=== PATIENT | male | born 1985 | race Caucasian/White ===

== ENCOUNTER 2020-03-21 10:41 | Inpatient (IN) | payer MEDICAID ==
[~2020-03-21] VITALS: Ht 165.1 cm; Wt 52.3 kg
[2020-03-21] MEDS ORDERED: normal saline 1000ML IV soln IVB ONE ×2 (10:50→14:35)
[2020-03-21] MEDS ORDERED: LORazepam 2 mg/ml vial IV ONE (10:50)
[2020-03-21 11:41] LABS: BASOPHILS % (AUTO) 0.3 % (0-1); EOSINOPHILS % (AUTO) 0.1 % (0-6); HEMATOCRIT 44.6 % (42.0-52.0); HEMOGLOBIN 14.7 g/dl (14.0-17.9); LYMPHOCYTES # (AUTO) 1.3 X10'3 (1.1-4.8); LYMPHOCYTES % (AUTO) 9.7 % (21-51); MEAN CORPUSCULAR HEMOGLOBIN 31.4 PG (27.0-31.0); MEAN CORPUSCULAR HGB CONC 32.9 g/dL (33.0-36.5); MEAN CORPUSCULAR VOLUME 95.3 FL (78-98); MEAN PLATELET VOLUME 8.6 FL (7.4-10.4); MONOCYTES # (AUTO) 0.7 X10'3 (0-0.9); MONOCYTES % (AUTO) 5.4 % (2-12); NEUTROPHILS # (AUTO) 10.9 X10'3 (1.8-7.7); NEUTROPHILS % (AUTO) 84.5 % (42-75); PLATELET COUNT 309 X10'3 (140-440); RED BLOOD COUNT 4.68 X10'6 (4.70-6.10); RED CELL DISTRIBUTION WIDTH 14.4 % (11.5-14.5); WHITE BLOOD COUNT 12.9 X10'3 (4.5-11.0)
[2020-03-21 11:50] LABS: ALANINE AMINOTRANSFERASE 18 U/L (12-78); ALBUMIN 4.4 G/DL (3.4-5.0); ALKALINE PHOSPHATASE 102 IU/L (46-116); ANION GAP 8 (8-16); ASPARTATE AMINO TRANSFERASE 9 U/L (10-37); BILIRUBIN,TOTAL 0.3 MG/DL (0.1-1.0); BLOOD UREA NITROGEN 13 MG/DL (7-18); BUN/CREATININE RATIO 22.4 (5.4-32.0); CALCIUM 9.4 MG/DL (8.5-10.1); CHLORIDE 103 MMOL/L (99-107); CREATININE 0.58 MG/DL (0.60-1.10); GLUCOSE 82 MG/DL (70-104); SODIUM 140 MMOL/L (135-145); TOTAL PROTEIN 8.7 G/DL (6.4-8.2); eGFR > 90 ML/MIN
--- NOTE | 2020-03-21 12:21 | NUR ---
PT STARTING TO WAKE UP AND MOVE BUT MOVEMENTS SEEM TO BE PURPOSEFUL BY HIM MOVING HIS ARMS BACK AND FORTH AND MOVING HIS HEAD WHILE MOVING HIS TONGUE IN AND OUT. BUT PT'S LEFT ARM IS SHAKING TIME TO TIME BACK AND FORTH.
[2020-03-21 12:45] LABS: VALPROATE 116 UG/ML (50-100)
--- NOTE | 2020-03-21 13:07 | NUR ---
PT TURNED ON HIS RIGHT SIDE.
[2020-03-21] MEDS ORDERED: CefTRIAXone/D5W-Rocephin 1gm 50 ML IV ONE (15:10)
[2020-03-21] MEDS ORDERED: potassium Cl 20 mEq SR tablet PO PRN ×2 (15:35)
[2020-03-21] MEDS ORDERED: potassium CL 10mEq/100ml bag 100 ML IV PRN ×2 (15:35)
[2020-03-21] MEDS ORDERED: ondansetron/PF 4mg/2ml inj IV PRN (15:35)
[2020-03-21 16:09] LABS: CLARITY,URINE CLEAR (Clear); COLOR,URINE YELLOW (Yellow); GLUCOSE, URINE NEGATIVE (Neg); KETONES,URINE TRACE mg/dl (Neg); LEUKOCYTE ESTERASE ,URINE NEGATIVE (Neg); NITRITES, URINE NEGATIVE (Neg); OCCULT BLOOD,URINE NEGATIVE (Neg); PH,URINE 7.5 (4.8-8.0); PROTEIN,URINE NEGATIVE (Neg); UROBILINOGEN,URINE 0.2 E.U/dL (0.2-1.0)
[2020-03-21 16:10] LABS: UA COLLECTION TYPE OTHER
[2020-03-21] MEDS ORDERED: LACT1CAP75 PO (16:40)
[2020-03-21] MEDS ORDERED: DIVA-76 PO (16:40)
[2020-03-21] MEDS ORDERED: CARB15DR91 LEFT EAR (16:40)
[2020-03-21] MEDS ORDERED: KEP500T PO (16:40)
[2020-03-21] MEDS ORDERED: CARB15DR91 RIGHT EAR (16:40)
[2020-03-21] MEDS ORDERED: [UNRECOGNIZED DRUG - OTHER] (16:40)
[2020-03-21] MEDS ORDERED: LEVE10002 PO (16:40)
[2020-03-21] MEDS ORDERED: GABA600T13 PO (16:40)
[2020-03-21] MEDS ORDERED: DOCU100C40 PO (16:40)
[2020-03-21] MEDS ORDERED: BARRIER PR (16:40)
[2020-03-21] MEDS ORDERED: BACL-11 PO (16:40)
[2020-03-21] MEDS ORDERED: ESOM20CA PO (16:40)
[2020-03-21] MEDS ORDERED: MAGN400O6 PO (16:40)
[2020-03-21] MEDS ORDERED: LEVE250T4 PO (16:40)
[2020-03-21] MEDS ORDERED: IBUP-2417 PO (16:40)
[2020-03-21] MEDS ORDERED: BISA10SU11 RC (16:40)
[2020-03-21] MEDS ORDERED: [UNRECOGNIZED DRUG - OTHER] PR (16:40)
[2020-03-21] MEDS ORDERED: ROBDML PO (16:40)
[2020-03-21] MEDS ORDERED: PHYT5TAB30 PO (16:40)
[2020-03-21] MEDS ORDERED: ASCO500C17 PO (16:40)
[2020-03-21] MEDS ORDERED: ACET-812 PO (16:40)
[2020-03-21] MEDS ORDERED: NA P133E RC (16:40)
[2020-03-21] MEDS ORDERED: LACO200T2 PO (16:40)
[2020-03-21] MEDS ORDERED: AMYL1TAB PO (16:40)
[2020-03-21] MEDS ORDERED: guaiFENesin/DM 10ml UD oral syrup PO PRN (17:55)
[2020-03-21] MEDS ORDERED: magnesium hydroxide 30ml (MOM) UD suspension PO PRN (17:55)
[2020-03-21] MEDS ORDERED: [UNRECOGNIZED DRUG - OTHER] PR PRN (17:55)
[2020-03-21] MEDS ORDERED: ibuprofen 200mg tablet PO PRN (17:55)
[2020-03-21] MEDS ORDERED: PAPAYA ENZYME PO PRN (17:55)
[2020-03-21] MEDS ORDERED: padimate O/petrolatum,white stick (Chapstick) TP PRN (17:55)
[2020-03-21] MEDS ORDERED: bisacodyl 10mg suppository rectal RC PRN (17:55)
[2020-03-21] MEDS ORDERED: acetaminophen 325mg tablet PO PRN (17:55)
[2020-03-21] MEDS ORDERED: non-formulary drug (Na Phos,M-B/Na Phos,Di-Ba (Enema) 1 ENEMAS) RC PRN (17:55)
[2020-03-21] MEDS: divalproex sodium 500mg tablet.DR PO SCH ×2 (20:00→23:07)
[2020-03-21] MEDS ORDERED: non-formulary drug (Levetiracetam (Keppra) 1 TAB) PO SCH (20:00)
[2020-03-21] MEDS: K and/or MAG REPLACEMENT MC SCH (20:00)
[2020-03-21] MEDS ORDERED: carbamide peroxide 15ml bottle RIGHT EAR SCH (20:00)
[2020-03-21] MEDS ORDERED: levetiracetam 250mg tablet PO SCH (20:00)
[2020-03-21] MEDS: LACOSAMIDE 50 MG TABLET PO SCH ×2 (20:00→23:07)
[2020-03-21 21:00] VITALS: BP 120/60
--- NOTE | 2020-03-21 21:00 | NUR ---
Received patient from ER. Patients caregiver came up to the floor with him and said the patient is at his baseline besides the occasionally muscle jolting/spasms that he has been having since the seizure. Patient is non-verbal at baseline and quadriplegic. Patients caregiver had to leave but left his name and phone number. Caregiver is Sudheer, phone # [phone]. Patient is in bed 3015A and is in no apparent distress.
[2020-03-21] MEDS: carbamide peroxide 15ml bottle EACH EAR SCH (21:55)
[2020-03-21] MEDS: levetiracetam 250mg tablet PO SCH (21:56)
[2020-03-21] MEDS: baclofen 10mg tablet PO SCH (21:56)
[2020-03-21] MEDS: pantoprazole 40mg Tablet.DR PO SCH (21:56)
[2020-03-21] MEDS: ascorbic acid 500mg tablet PO SCH (21:56)
[2020-03-21] MEDS: docusate sod 100mg capsule PO SCH (21:56)
[2020-03-21] MEDS: heparin, porcine 5000 units/ml vial SQ SCH (21:57)
[2020-03-21 22:00] VITALS: BP 127/64
--- NOTE | 2020-03-21 22:27 | NUR ---
Meds given late due to patient not being on the floor at 1999 when meds were due. Not all meds available to give. Requested meds from pharmacy and have not received them yet. Will give when available.
--- NOTE | 2020-03-22 00:32 | NUR ---
Patient has a vagus nerve stimulator implant for when he has seizures. There is a magnet that is supposed to be passed over the vagus nerve when the patient is having a seizure to monitor the seizure. This magnet is in a bag inside of the paper chart binder if needed.
[2020-03-22 02:00] VITALS: BP 138/78
--- NOTE | 2020-03-22 02:56 | NUR ---
PAGER ID: [phone] MESSAGE: Victoria darrell [phone]. Patient in room 3015A is DD and will not drink any fluids or take meds. Do you want fluids ordered?
[2020-03-22 06:23] LABS: BASOPHILS % (AUTO) 0.2 % (0-1); EOSINOPHILS % (AUTO) 0.1 % (0-6); HEMATOCRIT 37.9 % (42.0-52.0); HEMOGLOBIN 12.5 g/dl (14.0-17.9); LYMPHOCYTES # (AUTO) 1.9 X10'3 (1.1-4.8); LYMPHOCYTES % (AUTO) 16.4 % (21-51); MEAN CORPUSCULAR HEMOGLOBIN 31.4 PG (27.0-31.0); MEAN CORPUSCULAR VOLUME 95.1 FL (78-98); MEAN PLATELET VOLUME 9.1 FL (7.4-10.4); MONOCYTES # (AUTO) 0.6 X10'3 (0-0.9); MONOCYTES % (AUTO) 4.9 % (2-12); NEUTROPHILS # (AUTO) 8.9 X10'3 (1.8-7.7); NEUTROPHILS % (AUTO) 78.4 % (42-75); PLATELET COUNT 266 X10'3 (140-440); RED BLOOD COUNT 3.99 X10'6 (4.70-6.10); RED CELL DISTRIBUTION WIDTH 14.5 % (11.5-14.5); WHITE BLOOD COUNT 11.4 X10'3 (4.5-11.0)
--- NOTE | 2020-03-22 06:30 | NUR ---
Problems reprioritized. Patient report given, questions answered & plan of care reviewed with Karina KING.
--- NOTE | 2020-03-22 06:35 | NUR ---
Received report from Victoria KING
[2020-03-22 06:48] LABS: ALBUMIN 3.7 G/DL (3.4-5.0); ANION GAP 12 (8-16); BLOOD UREA NITROGEN 12 MG/DL (7-18); BUN/CREATININE RATIO 28.6 (5.4-32.0); CALCIUM 8.7 MG/DL (8.5-10.1); CHLORIDE 104 MMOL/L (99-107); CREATININE 0.42 MG/DL (0.60-1.10); GLUCOSE 92 MG/DL (70-104); POTASSIUM 3.7 MMOL/L (3.5-5.1); SODIUM 141 MMOL/L (135-145); TOTAL CARBON DIOXIDE 25.2 MMOL/L (24-32); eGFR > 90 ML/MIN
[2020-03-22 07:03] VITALS: BP 132/89
[2020-03-22] MEDS: K and/or MAG REPLACEMENT MC SCH ×2 (08:00→20:00)
[2020-03-22] MEDS: carbamide peroxide 15ml bottle EACH EAR SCH ×2 (08:00→20:38)
[2020-03-22] MEDS ORDERED: azithromycin 250mg tablet PO SCH (08:00)
[2020-03-22] MEDS: lactobacillus rhamnosus 10,000 MMU CELLS/CAPSULE PO SCH (08:00)
[2020-03-22] MEDS: pantoprazole 40mg Tablet.DR PO SCH ×2 (08:00→20:00)
[2020-03-22] MEDS: divalproex sodium 500mg tablet.DR PO SCH ×2 (08:00→20:38)
[2020-03-22] MEDS: levetiracetam 250mg tablet PO SCH ×2 (09:24→20:36)
[2020-03-22] MEDS: baclofen 10mg tablet PO SCH ×2 (09:25→20:00)
[2020-03-22] MEDS: ascorbic acid 500mg tablet PO SCH ×2 (09:25→20:00)
[2020-03-22] MEDS: gabapentin 300mg capsule PO SCH ×3 (09:25→16:00)
[2020-03-22] MEDS: docusate sod 100mg capsule PO SCH ×2 (09:25→20:00)
[2020-03-22] MEDS: azithromycin/NS 500mg/250ml 250 ML IV SCH (09:26)
[2020-03-22] MEDS: heparin, porcine 5000 units/ml vial SQ SCH ×2 (09:26→20:00)
[2020-03-22] MEDS: LACOSAMIDE 50 MG TABLET PO SCH ×2 (10:34→21:24)
[2020-03-22 11:00] VITALS: BP 129/88
[2020-03-22] MEDS: CefTRIAXone/D5W-Rocephin 1gm 50 ML IV SCH (11:27)
[2020-03-22 15:00] VITALS: BP 133/83
--- NOTE | 2020-03-22 16:18 | NUR ---
Anatoly consult: Anatoly Rolon; skin intact. Pt placed on pureed/regular diet hx cerebral palsy admit from care facility and concerns for aspiration PNA pending [employer] INF[employer] CONSULTANT BSS at this time per EMR. Will monitor for [employer] CONSULTANT recs and additional protein needs pending PO hx. Addendum: 03/22/20 at [address] Amended: Links added.
[2020-03-22 18:00] VITALS: BP 132/82
[2020-03-22 22:00] VITALS: BP 99/66
[2020-03-23 06:00] VITALS: BP 123/76
[2020-03-23 06:14] LABS: BASOPHILS % (AUTO) 0.5 % (0-1); EOSINOPHILS % (AUTO) 0.5 % (0-6); HEMATOCRIT 37.9 % (42.0-52.0); HEMOGLOBIN 12.9 g/dl (14.0-17.9); LYMPHOCYTES # (AUTO) 2.4 X10'3 (1.1-4.8); LYMPHOCYTES % (AUTO) 27.4 % (21-51); MEAN CORPUSCULAR VOLUME 94.2 FL (78-98); MEAN PLATELET VOLUME 8.6 FL (7.4-10.4); MONOCYTES # (AUTO) 0.6 X10'3 (0-0.9); MONOCYTES % (AUTO) 7.1 % (2-12); NEUTROPHILS # (AUTO) 5.6 X10'3 (1.8-7.7); NEUTROPHILS % (AUTO) 64.5 % (42-75); PLATELET COUNT 283 X10'3 (140-440); RED BLOOD COUNT 4.02 X10'6 (4.70-6.10); RED CELL DISTRIBUTION WIDTH 14.6 % (11.5-14.5); WHITE BLOOD COUNT 8.6 X10'3 (4.5-11.0)
--- NOTE | 2020-03-23 06:30 | NUR ---
Patient in room PCU 3015. I have received report from Enedina KNIG and had the opportunity to ask questions and assume patient care.
[2020-03-23 06:31] LABS: ALBUMIN 3.7 G/DL (3.4-5.0); ANION GAP 12 (8-16); BLOOD UREA NITROGEN 15 MG/DL (7-18); BUN/CREATININE RATIO 35.7 (5.4-32.0); CHLORIDE 105 MMOL/L (99-107); CREATININE 0.42 MG/DL (0.60-1.10); GLUCOSE 99 MG/DL (70-104); POTASSIUM 3.8 MMOL/L (3.5-5.1); SODIUM 142 MMOL/L (135-145); TOTAL CARBON DIOXIDE 25.4 MMOL/L (24-32); eGFR > 90 ML/MIN
[2020-03-23 07:00] VITALS: BP 123/76
[2020-03-23] MEDS: carbamide peroxide 15ml bottle EACH EAR SCH ×2 (08:00→20:00)
[2020-03-23] MEDS: pantoprazole 40mg Tablet.DR PO SCH ×2 (08:00→21:11)
[2020-03-23] MEDS: heparin, porcine 5000 units/ml vial SQ SCH ×2 (08:00→20:00)
[2020-03-23] MEDS: LACOSAMIDE 50 MG TABLET PO SCH ×2 (08:00→20:00)
[2020-03-23] MEDS: docusate sod 100mg capsule PO SCH ×2 (08:00→20:00)
[2020-03-23] MEDS: lactobacillus rhamnosus 10,000 MMU CELLS/CAPSULE PO SCH (08:00)
[2020-03-23] MEDS: K and/or MAG REPLACEMENT MC SCH ×2 (08:00→20:00)
[2020-03-23] MEDS: baclofen 10mg tablet PO SCH ×2 (08:00→21:11)
[2020-03-23] MEDS: azithromycin/NS 500mg/250ml 250 ML IV SCH (09:15)
[2020-03-23] MEDS: CefTRIAXone/D5W-Rocephin 1gm 50 ML IV SCH (09:16)
[2020-03-23] MEDS: levetiracetam 250mg tablet PO SCH ×2 (09:16→21:09)
[2020-03-23] MEDS: gabapentin 300mg capsule PO SCH ×3 (09:17→16:00)
[2020-03-23] MEDS: ascorbic acid 500mg tablet PO SCH ×2 (09:17→20:00)
[2020-03-23] MEDS: divalproex sodium 500mg tablet.DR PO SCH ×2 (09:20→21:11)
[2020-03-23 11:00] VITALS: BP 115/69
[2020-03-23 15:00] VITALS: BP 156/95
[2020-03-23 18:30] VITALS: BP 127/81
--- NOTE | 2020-03-23 18:39 | NUR ---
Problems reprioritized. Patient report given, questions answered & plan of care reviewed with Enedina KING.
[2020-03-23 22:00] VITALS: BP 143/85
[2020-03-24 02:00] VITALS: BP 120/78
[2020-03-24 06:15] LABS: BASOPHILS # (AUTO) 0.1 X10'3 (0-0.2); BASOPHILS % (AUTO) 0.7 % (0-1); EOSINOPHILS % (AUTO) 0.5 % (0-6); HEMATOCRIT 37.9 % (42.0-52.0); HEMOGLOBIN 12.7 g/dl (14.0-17.9); LYMPHOCYTES # (AUTO) 1.9 X10'3 (1.1-4.8); LYMPHOCYTES % (AUTO) 21.9 % (21-51); MEAN CORPUSCULAR HEMOGLOBIN 31.7 PG (27.0-31.0); MEAN CORPUSCULAR HGB CONC 33.6 g/dL (33.0-36.5); MEAN CORPUSCULAR VOLUME 94.4 FL (78-98); MEAN PLATELET VOLUME 8.8 FL (7.4-10.4); MONOCYTES # (AUTO) 0.6 X10'3 (0-0.9); MONOCYTES % (AUTO) 6.9 % (2-12); PLATELET COUNT 302 X10'3 (140-440); RED BLOOD COUNT 4.01 X10'6 (4.70-6.10); RED CELL DISTRIBUTION WIDTH 14.5 % (11.5-14.5); WHITE BLOOD COUNT 8.6 X10'3 (4.5-11.0)
[2020-03-24 06:17] LABS: ALBUMIN 3.7 G/DL (3.4-5.0); ANION GAP 12 (8-16); BLOOD UREA NITROGEN 19 MG/DL (7-18); BUN/CREATININE RATIO 37.3 (5.4-32.0); CALCIUM 9.1 MG/DL (8.5-10.1); CHLORIDE 106 MMOL/L (99-107); CREATININE 0.51 MG/DL (0.60-1.10); GLUCOSE 90 MG/DL (70-104); POTASSIUM 3.9 MMOL/L (3.5-5.1); SODIUM 143 MMOL/L (135-145); TOTAL CARBON DIOXIDE 25.5 MMOL/L (24-32); eGFR > 90 ML/MIN
--- NOTE | 2020-03-24 06:25 | NUR ---
Patient in room PCU 3015. I have received report from Enedina KING and had the opportunity to ask questions and assume patient care.
[2020-03-24] MEDS: pantoprazole 40mg Tablet.DR PO SCH (08:00)
[2020-03-24] MEDS: lactobacillus rhamnosus 10,000 MMU CELLS/CAPSULE PO SCH (08:00)
[2020-03-24] MEDS: docusate sod 100mg capsule PO SCH (08:00)
[2020-03-24] MEDS: baclofen 10mg tablet PO SCH (08:00)
[2020-03-24] MEDS: heparin, porcine 5000 units/ml vial SQ SCH (08:00)
[2020-03-24] MEDS: carbamide peroxide 15ml bottle EACH EAR SCH (08:00)
[2020-03-24] MEDS ORDERED: azithromycin 250mg tablet PO SCH (08:00)
[2020-03-24] MEDS: LACOSAMIDE 50 MG TABLET PO SCH (08:00)
[2020-03-24] MEDS: ascorbic acid 500mg tablet PO SCH (08:00)
[2020-03-24] MEDS: K and/or MAG REPLACEMENT MC SCH (08:00)
[2020-03-24] MEDS ORDERED: augmentin PO (09:27)
[2020-03-24] MEDS: CefTRIAXone/D5W-Rocephin 1gm 50 ML IV SCH (10:05)
[2020-03-24] MEDS: levetiracetam 250mg tablet PO SCH (10:05)
[2020-03-24] MEDS: divalproex sodium 500mg tablet.DR PO SCH (10:05)
[2020-03-24] MEDS: gabapentin 300mg capsule PO SCH ×3 (10:14→16:00)
[2020-03-24 11:00] VITALS: BP_SYST 121; BP_SYST 151; BP_DIAS 69
[2020-03-24] MEDS ORDERED: AMOX1TAB15 PO (12:31)
--- NOTE | 2020-03-24 12:35 | NUR ---
Page sent to Dr. Wolff: PAGER ID: [phone] MESSAGE: [id number] Luis Carney: Amoxicillin is on the patient's allergy list, continue with discharge with Rx of Augmentin? Thanks, Amirah [phone]
--- NOTE | 2020-03-24 13:15 | NUR ---
Initial: Pt admit from care facility w/ seizure, bacteremia, and concern for aspiration PNA per MD. ELECTRIC TRUCK DRIVER recommended pureed/nectar thick diet w/ feeder; pt also has sitter. PO 25-50% avg meals not meeting needs; thickened magic cup shake added BIDLD for additional protein/kcals needs. LBM 6/8. Will continue to monitor. Rec: 1. continue regular/pureed/NTL diet per ELECTRIC TRUCK DRIVER/MD; encourage PO 2. thickened magic cup shake BIDLD 3. bowel care as needed 4. weekly scaled wts Addendum: 03/24/20 at [address] Amended: Links added.
[2020-03-24] MEDS ORDERED: LEVO500T2 PO (14:20)
[2020-03-24 15:00] VITALS: BP 147/97
--- NOTE | 2020-03-24 17:34 | NUR ---
Patient stable for discharge back to care facility he lives at per MD order. IV discontinued with catheter in tact, all patient belongs packed up and sent with patient. New Rx called in to [facility]. Facility and senior product development engineer notified of transfer, patient transported by senior living personnel.
--- NOTE | 2020-03-24 17:35 | NUR ---
Patient's discharge was delayed due to 5 factors: The patient's correction required a COVID 19 test. Order had to be obtained by infection control. Next, the initial order for discharge antibiotics did not include a dose. Waited for a page back for at least an hour and a half from Dr. Wolff. Next, RN identified that the patient is allergic to the drug ordered. Waited at least 3 hours for a response from Dr. Wolff. Next, correction required discharge paperwork to be faxed, fax would not send. After an hour of troubleshooting, facility was called and they said "oh our fax must be held up because we just got a whole bunch of papers faxed from another facility. GO ahead and just send the packet over with the patient upon transfer. Facility sent over transport.
--- NOTE | 2020-03-24 18:11 | NUR ---
Student documentation: I have reviewed and agree with all interventions, assessments performed and documented by SN Med. Addendum: 03/24/20 at 1811 by Amirah Blakely RN Student Medication Administration: For this medication-pass time frame, all medication were reviewed, dispensed, administered and documented per hospital policy by SN. Med
== END 2020-03-24 17:17 | disposition home or self-care (01) | DRG 137 ==
LOC: ER 10:43 → ED HOLD 15:34 → EDBEDREQ 20:17 → PCU 3S 21:38
PROVIDERS: ADMIT Internal Medicine; ATTEND Internal Medicine
DX: J69.0 Pneumonitis due to inhalation of food and vomit (principal); R78.81 Bacteremia; G80.9 Cerebral palsy, unspecified; G40.909 Epilepsy, unspecified, not intractable, without status epilepticus; Z88.1 Allergy status to other antibiotic agents; M62.838 Other muscle spasm; Z20.828 Contact with and (suspected) exposure to other viral communicable diseases
CPT/HCPCS: 36415; 71045; 80048; 80053; 80164; 81003; 83605; 84145; 85025; 87040; 87077; 87081; 87186; 87635; 92508; 92616; 93005; 96365; 99285; G0378; J0456; J0696; J1644; J7030

== ENCOUNTER 2020-06-23 22:33 | Inpatient (IN) | payer MEDICAID ==
[~2020-06-23] VITALS: Ht 170.2 cm; Wt 60.0 kg
[~2020-06-23 22:33] MED LIST: ACET-812 PO; AMYL1TAB PO; ASCO500C17 PO; BACL-11 PO; BARRIER PR; BISA10SU11 RC; CARB15DR91 LEFT EAR; CARB15DR91 RIGHT EAR; DIVA-76 PO; DOCU100C40 PO; ESOM20CA PO; GABA600T13 PO; IBUP-2417 PO; KEP500T PO; LACO200T2 PO; LACT1CAP75 PO; LEVE10002 PO; MAGN400O6 PO; NA P133E RC; PHYT5TAB30 PO; ROBDML PO; [UNRECOGNIZED DRUG - OTHER]; [UNRECOGNIZED DRUG - OTHER] PR
--- NOTE | 2020-06-23 22:40 | NUR ---
PT TO XRAY VIA AMAIRANI
--- NOTE | 2020-06-23 22:50 | NUR ---
PT BACK FROM [facility]
[2020-06-23] MEDS ORDERED: morphine 4 MG/ML inj SYRINge IV ONE (22:55)
[2020-06-23] MEDS ORDERED: ondansetron/PF 4mg/2ml inj IV ONE (22:55)
[2020-06-23 23:26] LABS: MEAN PLATELET VOLUME 8.6 FL (7.4-10.4); RED CELL DISTRIBUTION WIDTH 14.4 % (11.5-14.5)
[2020-06-23 23:27] LABS: BASOPHILS # (AUTO) 0.1 X10'3 (0-0.2); EOSINOPHILS # (AUTO) 0.1 X10'3 (0-0.9); EOSINOPHILS % (AUTO) 1.6 % (0-6); HEMATOCRIT 38.8 % (42.0-52.0); LYMPHOCYTES # (AUTO) 2.3 X10'3 (1.1-4.8); LYMPHOCYTES % (AUTO) 29.8 % (21-51); MEAN CORPUSCULAR HEMOGLOBIN 32.3 PG (27.0-31.0); MEAN CORPUSCULAR HGB CONC 33.5 g/dL (33.0-36.5); MEAN CORPUSCULAR VOLUME 96.5 FL (78-98); MONOCYTES # (AUTO) 0.6 X10'3 (0-0.9); MONOCYTES % (AUTO) 7.4 % (2-12); NEUTROPHILS # (AUTO) 4.7 X10'3 (1.8-7.7); NEUTROPHILS % (AUTO) 60.2 % (42-75); PLATELET COUNT 243 X10'3 (140-440); RED BLOOD COUNT 4.02 X10'6 (4.70-6.10); WHITE BLOOD COUNT 7.9 X10'3 (4.5-11.0)
[2020-06-23 23:38] LABS: PARTIAL THROMBOPLASTIN TIME 27 SECONDS (22-32)
[2020-06-23 23:44] LABS: ALANINE AMINOTRANSFERASE 17 U/L (12-78); ALBUMIN 3.8 G/DL (3.4-5.0); ALKALINE PHOSPHATASE 75 IU/L (46-116); ANION GAP 8 (8-16); ASPARTATE AMINO TRANSFERASE 11 U/L (10-37); BILIRUBIN,TOTAL 0.1 MG/DL (0.1-1.0); BLOOD UREA NITROGEN 13 MG/DL (7-18); BUN/CREATININE RATIO 19.7 (5.4-32.0); CALCIUM 8.8 MG/DL (8.5-10.1); CHLORIDE 102 MMOL/L (99-107); CREATININE 0.66 MG/DL (0.60-1.10); GLUCOSE 110 MG/DL (70-104); SODIUM 141 MMOL/L (135-145); TOTAL CARBON DIOXIDE 31.3 MMOL/L (24-32); TOTAL PROTEIN 7.5 G/DL (6.4-8.2); eGFR > 90 ML/MIN
[2020-06-24] MEDS ORDERED: morphine 4 MG/ML inj SYRINge IV ONE (00:05)
[2020-06-24] MEDS ORDERED: LIDOcaine 2% 10ml TOPICAL JELLY (Urojet) TP ONE (00:05)
--- NOTE | 2020-06-24 01:30 | NUR ---
BAR HOST OFF UNIT WILL RETURN SHORTLY
[2020-06-24] MEDS ORDERED: ondansetron/PF 4mg/2ml inj IV PRN (01:40)
[2020-06-24] MEDS ORDERED: potassium CL 10mEq/100ml bag 100 ML IV PRN ×2 (01:40)
[2020-06-24] MEDS ORDERED: morphine 2 MG/ML inj. syringe IV PRN (01:40)
[2020-06-24] MEDS: normal saline 1000ml 1,000 ML IV SCH ×2 (02:30→12:27)
[2020-06-24 03:00] VITALS: BP 135/85
--- NOTE | 2020-06-24 03:00 | NUR ---
Patient arrived to floor via gurney from ER. Caregiver Sudheer following. Patient transferred over to bed and settled in. Unable to obtain MRSA swab at this time d/t patient having anxiety.
--- NOTE | 2020-06-24 03:10 | NUR ---
pt refused nasal swab for MRSA. kept turning head side to side and swiping his fist at his nose.
[2020-06-24 06:00] VITALS: BP 112/77
--- NOTE | 2020-06-24 06:00 | NUR ---
Patient in room ORTHO 4009. I have received report from Nan and had the opportunity to ask questions and assume patient care.
--- NOTE | 2020-06-24 06:18 | NUR ---
Problems reprioritized. Patient report given, questions answered & plan of care reviewed with CHRISTINE Marvin.
[2020-06-24] MEDS ORDERED: levetiracetam 250mg tablet PO SCH (08:00)
[2020-06-24] MEDS ORDERED: non-formulary drug (Levetiracetam (Keppra) 1 TAB) PO SCH (08:00)
[2020-06-24] MEDS ORDERED: divalproex sodium 500mg tablet.DR PO SCH (08:00)
[2020-06-24] MEDS: gabapentin 300mg capsule PO SCH ×2 (08:00→16:00)
[2020-06-24] MEDS: baclofen 10mg tablet PO SCH ×2 (08:00→19:52)
[2020-06-24] MEDS: K and/or MAG REPLACEMENT MC SCH ×2 (08:00→20:00)
[2020-06-24] MEDS: pantoprazole 40mg Tablet.DR PO SCH ×2 (08:00→19:52)
[2020-06-24 10:00] VITALS: BP 135/82
[2020-06-24] MEDS ORDERED: acetaminophen 325mg tablet PO PRN (10:35)
--- NOTE | 2020-06-24 10:35 | NUR ---
LET MEAGAN HOYOS NP KNOW TEMP 102.0 ORDER GIVEN FOR TYLENOL.
--- NOTE | 2020-06-24 10:52 | NUR ---
Called [facility] to determine appropriate medical education specialist, no answer just a fax tone. Called [facility], was advised the nurse in charge at [facility] (Lili Moss) wouldn't be in until after 11:00. Reiterated reason for call, was only offered her VM.
--- NOTE | 2020-06-24 11:05 | NUR ---
Pulled 4 mg morphine (2 vials, 2mg/mL) from [facility] at 11:02. Scanned and given to pt at 11:05. Bea Lange was in room with me. Upon hitting "save", "medication edits have occurred" was displayed on the screen. The medical illustrator of morphine was no longer displayed and that med order was DC'd. A new order was showing for the same dosage of 4mg/mL. Spoke with tani in the pharmacy to confirm time med was pulled from [facility] and advise of medication screen not displaying the given dosage of morphine.
--- NOTE | 2020-06-24 11:25 | NUR ---
Called [facility] again, nurse had not arrived yet. Will reach out to [facility] again. Addendum: 06/24/20 at 1126 by Shavonne Garvin RN Called [facility], fax machine picked up as soon as call was answered. Asked to call again.
--- NOTE | 2020-06-24 11:30 | NUR ---
Finally able to get a hold of nurse, nectar thick, pureed diet, 90 degrees sitting upright, crushed meds in applesauce, direct number to Lili Moss is
[2020-06-24] MEDS: valproate sod 250mg/5ml UD oral syrup PO SCH ×2 (11:35→19:52)
--- NOTE | 2020-06-24 12:10 | NUR ---
Spoke with surgeon, [facility] cell number - Beau Noriega Addendum: 06/24/20 at 1212 by Shavonne Garvin RN Beau Noriega
[2020-06-24] MEDS: acetaminophen 650mg rectal suppository RC PRN ×2 (12:17→17:06)
[2020-06-24] MEDS: morphine 4 MG/ML inj SYRINge IV PRN ×3 (15:52→22:37)
[2020-06-24 16:01] VITALS: BP 146/89
--- NOTE | 2020-06-24 16:31 | NUR ---
Received call from surgeon, no surgery for pt today, able to give dinner then NPO after midnight for surgery tomorrow, no time given for surgery
[2020-06-24 18:00] VITALS: BP 126/72
--- NOTE | 2020-06-24 18:05 | NUR ---
Patient in room ORTHO 4009A. I have received report from CHRISTINE Marvin and had the opportunity to ask questions and assume patient care.
--- NOTE | 2020-06-24 18:12 | NUR ---
Problems reprioritized. Patient report given, questions answered & plan of care reviewed with
[2020-06-24] MEDS: heparin, porcine 5000 units/ml vial SQ SCH (19:52)
[2020-06-24] MEDS: levetiracetam 100mg/ml oral solution 5ml UD cup PO SCH (19:53)
[2020-06-24] MEDS ORDERED: valproate sod 250mg/5ml UD oral syrup PO SCH (20:00)
[2020-06-24 22:00] VITALS: BP 144/103
[2020-06-25] VITALS (17 sets, daily range): BP systolic 126–151; BP diastolic 78–100
[2020-06-25] MEDS: morphine 4 MG/ML inj SYRINge IV PRN ×5 (00:44→23:17)
[2020-06-25] MEDS: normal saline 1000ml 1,000 ML IV SCH ×3 (00:45→17:36)
[2020-06-25] MEDS: gabapentin 300mg capsule PO SCH ×4 (00:45→23:17)
--- NOTE | 2020-06-25 06:28 | NUR ---
Problems reprioritized. Patient report given, questions answered & plan of care reviewed with CHRISTINE Brennan.
[2020-06-25 07:45] LABS: BASOPHILS % (AUTO) 0.4 % (0-1); EOSINOPHILS % (AUTO) 0.1 % (0-6); HEMATOCRIT 32.1 % (42.0-52.0); HEMOGLOBIN 10.8 g/dl (14.0-17.9); LYMPHOCYTES # (AUTO) 2.3 X10'3 (1.1-4.8); LYMPHOCYTES % (AUTO) 22.2 % (21-51); MEAN CORPUSCULAR HEMOGLOBIN 32.1 PG (27.0-31.0); MEAN CORPUSCULAR HGB CONC 33.8 g/dL (33.0-36.5); MEAN PLATELET VOLUME 8.9 FL (7.4-10.4); MONOCYTES # (AUTO) 1.7 X10'3 (0-0.9); MONOCYTES % (AUTO) 15.8 % (2-12); NEUTROPHILS # (AUTO) 6.4 X10'3 (1.8-7.7); NEUTROPHILS % (AUTO) 61.5 % (42-75); PLATELET COUNT 210 X10'3 (140-440); RED BLOOD COUNT 3.38 X10'6 (4.70-6.10); RED CELL DISTRIBUTION WIDTH 14.3 % (11.5-14.5); WHITE BLOOD COUNT 10.4 X10'3 (4.5-11.0)
[2020-06-25] MEDS: K and/or MAG REPLACEMENT MC SCH ×2 (08:00→19:10)
[2020-06-25] MEDS: heparin, porcine 5000 units/ml vial SQ SCH ×2 (08:00→21:58)
[2020-06-25] MEDS: pantoprazole 40mg Tablet.DR PO SCH ×2 (08:03→21:57)
[2020-06-25] MEDS: baclofen 10mg tablet PO SCH ×2 (08:03→21:57)
[2020-06-25] MEDS: levetiracetam 100mg/ml oral solution 5ml UD cup PO SCH ×2 (08:17→21:58)
[2020-06-25] MEDS: valproate sod 250mg/5ml UD oral syrup PO SCH ×2 (08:18→21:57)
[2020-06-25 08:20] LABS: ALANINE AMINOTRANSFERASE 13 U/L (12-78); ALBUMIN 3.4 G/DL (3.4-5.0); ALBUMIN/GLOBULIN RATIO 0.9 (1.1-1.5); ALKALINE PHOSPHATASE 59 IU/L (46-116); ANION GAP 7 (8-16); ASPARTATE AMINO TRANSFERASE 10 U/L (10-37); BILIRUBIN,TOTAL 0.3 MG/DL (0.1-1.0); BLOOD UREA NITROGEN 15 MG/DL (7-18); BUN/CREATININE RATIO 40.5 (5.4-32.0); CALCIUM 8.2 MG/DL (8.5-10.1); CHLORIDE 104 MMOL/L (99-107); CREATININE 0.37 MG/DL (0.60-1.10); GLUCOSE 104 MG/DL (70-104); POTASSIUM 3.6 MMOL/L (3.5-5.1); SODIUM 140 MMOL/L (135-145); TOTAL CARBON DIOXIDE 28.7 MMOL/L (24-32); eGFR > 90 ML/MIN
[2020-06-25 08:30] LABS: PLATELET ESTIMATE NORMAL; TOTAL CELLS COUNTED 100
--- NOTE | 2020-06-25 10:45 | NUR ---
REC'D CALL FROM CHRISTINE STRANGE AT PTS HOME. CALLING TO CHECK ON PT, ADVISED PT IS DOING WELL OTHER THAN A LITTLE TACHYCARDIC. ASKED RN WHAT WAS NORMAL. SHE SAID PT RUNS A LITTLE TACHY 110-120 WHEN IN PAIN OR AGITATED
[2020-06-25] MEDS ORDERED: ondansetron/PF 4mg/2ml inj IV PRN (11:15)
[2020-06-25] MEDS ORDERED: ringers solution, lacted 1,000 ML IV SCH (11:15)
[2020-06-25] MEDS ORDERED: meperidine/PF 25mg/ml syringe IV PRN ×3 (11:15)
[2020-06-25] MEDS ORDERED: morphine 4 MG/ML inj SYRINge IV PRN (11:15)
[2020-06-25] MEDS ORDERED: proCHLORperazine 10 MG/2 ml inj IV PRN (11:15)
[2020-06-25] MEDS ORDERED: morphine 2 MG/ML inj. syringe IV PRN (11:15)
[2020-06-25] MEDS ORDERED: dexamethasone sod phosphate 10mg/ml inj ONE (11:45)
[2020-06-25] MEDS ORDERED: ondansetron/PF 4mg/2ml inj ONE (11:45)
[2020-06-25] MEDS ORDERED: desflurane 240ml liquid inh. IH ONE (11:45)
[2020-06-25] MEDS ORDERED: midazolam 2 mg/2 ml injection ONE (11:51)
[2020-06-25] MEDS ORDERED: fentaNYL /PF 50mcg/ml 5ml ampule ONE (11:52)
[2020-06-25] MEDS ORDERED: LIDOcaine 2% (20mg/ml) 5ml vial ONE (12:05)
[2020-06-25] MEDS ORDERED: rocuronium 10mg/ml inj IV ONE (12:05)
[2020-06-25] MEDS ORDERED: propofol inj 20 ML IV ONE (12:05)
[2020-06-25] MEDS ORDERED: ceFAZolin 1000mg inj ONE ×2 (12:49→12:50)
[2020-06-25] MEDS ORDERED: glycopyrrolate 0.2mg/ml inj ONE (13:34)
[2020-06-25] MEDS ORDERED: neostigmine methylsulfate 1 MG/ML 10ml vial ONE (13:34)
--- NOTE | 2020-06-25 13:50 | NUR ---
Received from OR via BED , accompanied by Anesthesiologist DR VOSS and report given by Anesthesiolgist. PATIENT WAKING UP, NO S/S OF PAIN, V/S WNL, NEUROVASCULAR CHECKS INTACT, 20G PIV RUE , DRESSING TO RIGHT HIP FEMUR CDI W/ COLD POWDER PACK
--- NOTE | 2020-06-25 14:30 | NUR ---
PATIENT AWAKE AND AT BASELINE MENTATION, NO S/S OF PAIN, V/S WNL, NEUROVASCULAR CHECKS INTACT, 20G PIV RUE , DRESSING TO RIGHT HIP FEMUR CDI W/ COLD POWDER PACK . PATIENT TAKEN TO 4009A WITH ALL BELONGINGS AND HOOKED UP TO MONITORS IN ROOM AND REPORT GIVEN TO RN WHO HAS TAKEN OVER PATIENT CARE.
--- NOTE | 2020-06-25 18:37 | NUR ---
Problems reprioritized. Patient report given, questions answered & plan of care reviewed with CHRISTINE Vail.
[2020-06-26 02:15] VITALS: BP 107/72
[2020-06-26] MEDS: morphine 4 MG/ML inj SYRINge IV PRN ×2 (02:26→05:32)
[2020-06-26] MEDS: normal saline 1000ml 1,000 ML IV SCH ×2 (02:26→13:17)
[2020-06-26 06:00] VITALS: BP 109/64
--- NOTE | 2020-06-26 06:11 | NUR ---
Patient in room ORTHO 4009. I have received report from CHRISTINE Vail and had the opportunity to ask questions and assume patient care.
--- NOTE | 2020-06-26 06:11 | NUR ---
Problems reprioritized. Patient report given, questions answered & plan of care reviewed with CHRISTINE Morales.
[2020-06-26 07:05] LABS: ALANINE AMINOTRANSFERASE 10 U/L (12-78); ALBUMIN 2.8 G/DL (3.4-5.0); ALBUMIN/GLOBULIN RATIO 0.8 (1.1-1.5); ALKALINE PHOSPHATASE 47 IU/L (46-116); ANION GAP 7 (8-16); ASPARTATE AMINO TRANSFERASE 12 U/L (10-37); BASOPHILS % (AUTO) 0.2 % (0-1); BILIRUBIN,TOTAL 0.4 MG/DL (0.1-1.0); BLOOD UREA NITROGEN 14 MG/DL (7-18); CHLORIDE 102 MMOL/L (99-107); CREATININE 0.35 MG/DL (0.60-1.10); EOSINOPHILS % (AUTO) 0 % (0-6); GLUCOSE 109 MG/DL (70-104); HEMATOCRIT 26.3 % (42.0-52.0); LYMPHOCYTES # (AUTO) 2.1 X10'3 (1.1-4.8); LYMPHOCYTES % (AUTO) 21.6 % (21-51); MEAN CORPUSCULAR HEMOGLOBIN 32.5 PG (27.0-31.0); MEAN CORPUSCULAR HGB CONC 34.2 g/dL (33.0-36.5); MEAN CORPUSCULAR VOLUME 95.1 FL (78-98); MEAN PLATELET VOLUME 8.9 FL (7.4-10.4); MONOCYTES # (AUTO) 1.6 X10'3 (0-0.9); MONOCYTES % (AUTO) 16.7 % (2-12); NEUTROPHILS % (AUTO) 61.5 % (42-75); PLATELET COUNT 169 X10'3 (140-440); POTASSIUM 3.5 MMOL/L (3.5-5.1); RED BLOOD COUNT 2.76 X10'6 (4.70-6.10); RED CELL DISTRIBUTION WIDTH 13.9 % (11.5-14.5); SODIUM 136 MMOL/L (135-145); TOTAL CARBON DIOXIDE 26.6 MMOL/L (24-32); TOTAL PROTEIN 6.2 G/DL (6.4-8.2); WHITE BLOOD COUNT 9.7 X10'3 (4.5-11.0); eGFR > 90 ML/MIN
[2020-06-26] MEDS: K and/or MAG REPLACEMENT MC SCH ×2 (07:16→20:00)
[2020-06-26] MEDS: baclofen 10mg tablet PO SCH ×2 (07:40→20:39)
[2020-06-26] MEDS: gabapentin 300mg capsule PO SCH ×2 (07:40→15:53)
[2020-06-26] MEDS: pantoprazole 40mg Tablet.DR PO SCH ×2 (07:40→20:38)
[2020-06-26] MEDS: heparin, porcine 5000 units/ml vial SQ SCH ×2 (07:40→20:38)
[2020-06-26] MEDS: valproate sod 250mg/5ml UD oral syrup PO SCH ×2 (07:44→20:38)
[2020-06-26] MEDS: levetiracetam 100mg/ml oral solution 5ml UD cup PO SCH ×2 (07:44→20:38)
[2020-06-26 10:00] VITALS: BP 109/76
[2020-06-26 18:00] VITALS: BP 141/93
--- NOTE | 2020-06-26 18:24 | NUR ---
Problems reprioritized. Patient report given, questions answered & plan of care reviewed with CHRISTINE Singh.
[2020-06-26 22:00] VITALS: BP 129/77
[2020-06-27] MEDS: normal saline 1000ml 1,000 ML IV SCH
[2020-06-27 05:42] LABS: ALANINE AMINOTRANSFERASE 6 U/L (12-78); ALBUMIN 2.9 G/DL (3.4-5.0); ALBUMIN/GLOBULIN RATIO 0.8 (1.1-1.5); ALKALINE PHOSPHATASE 44 IU/L (46-116); ANION GAP 7 (8-16); ASPARTATE AMINO TRANSFERASE 13 U/L (10-37); BILIRUBIN,TOTAL 0.5 MG/DL (0.1-1.0); BLOOD UREA NITROGEN 11 MG/DL (7-18); BUN/CREATININE RATIO 35.5 (5.4-32.0); CALCIUM 8.3 MG/DL (8.5-10.1); CHLORIDE 104 MMOL/L (99-107); CREATININE 0.31 MG/DL (0.60-1.10); GLUCOSE 101 MG/DL (70-104); POTASSIUM 3.2 MMOL/L (3.5-5.1); SODIUM 139 MMOL/L (135-145); TOTAL CARBON DIOXIDE 28.4 MMOL/L (24-32); TOTAL PROTEIN 6.4 G/DL (6.4-8.2); eGFR > 90 ML/MIN
[2020-06-27 05:54] LABS: BASOPHILS % (AUTO) 0.5 % (0-1); EOSINOPHILS # (AUTO) 0.1 X10'3 (0-0.9); EOSINOPHILS % (AUTO) 0.8 % (0-6); HEMATOCRIT 25.5 % (42.0-52.0); HEMOGLOBIN 8.8 g/dl (14.0-17.9); LYMPHOCYTES # (AUTO) 1.8 X10'3 (1.1-4.8); LYMPHOCYTES % (AUTO) 20.2 % (21-51); MEAN CORPUSCULAR HEMOGLOBIN 32.3 PG (27.0-31.0); MEAN CORPUSCULAR HGB CONC 34.3 g/dL (33.0-36.5); MEAN CORPUSCULAR VOLUME 94.1 FL (78-98); MEAN PLATELET VOLUME 9.3 FL (7.4-10.4); MONOCYTES # (AUTO) 1.1 X10'3 (0-0.9); MONOCYTES % (AUTO) 12.9 % (2-12); NEUTROPHILS # (AUTO) 5.7 X10'3 (1.8-7.7); NEUTROPHILS % (AUTO) 65.6 % (42-75); PLATELET COUNT 187 X10'3 (140-440); RED BLOOD COUNT 2.71 X10'6 (4.70-6.10); RED CELL DISTRIBUTION WIDTH 13.7 % (11.5-14.5); WHITE BLOOD COUNT 8.7 X10'3 (4.5-11.0)
[2020-06-27 06:00] VITALS: BP 114/77
--- NOTE | 2020-06-27 06:49 | NUR ---
Patient in room ORTHO 4009A. I have received report from CHRISTINE MOODY and had the opportunity to ask questions and assume patient care.
[2020-06-27] MEDS: gabapentin 300mg capsule PO SCH ×4 (07:46→23:21)
[2020-06-27] MEDS: pantoprazole 40mg Tablet.DR PO SCH ×2 (07:46→20:36)
[2020-06-27] MEDS: heparin, porcine 5000 units/ml vial SQ SCH ×2 (07:46→20:36)
[2020-06-27] MEDS: baclofen 10mg tablet PO SCH ×2 (07:46→20:36)
[2020-06-27] MEDS: levetiracetam 100mg/ml oral solution 5ml UD cup PO SCH ×2 (07:47→20:37)
[2020-06-27] MEDS: valproate sod 250mg/5ml UD oral syrup PO SCH ×2 (07:47→20:36)
[2020-06-27] MEDS: K and/or MAG REPLACEMENT MC SCH ×3 (08:00→20:00)
[2020-06-27 10:00] VITALS: BP 125/84
[2020-06-27] MEDS ORDERED: potassium CL 10mEq/100ml bag 100 ML IV PRN (12:20)
[2020-06-27] MEDS ORDERED: potassium Cl 20 mEq SR tablet PO PRN ×2 (12:20)
[2020-06-27] MEDS: morphine 4 MG/ML inj SYRINge IV PRN ×4 (13:56→23:21)
[2020-06-27] MEDS: potassium CL 10mEq/100ml bag 100 ML IV PRN ×3 (17:53→22:28)
[2020-06-27 18:00] VITALS: BP 142/68
--- NOTE | 2020-06-27 18:26 | NUR ---
Problems reprioritized. Patient report given, questions answered & plan of care reviewed with CHRISTINE UGARTE.
--- NOTE | 2020-06-27 18:30 | NUR ---
Patient in room ORTHO 4009. I have received report from Marcia Morataya RN and had the opportunity to ask questions and assume patient care.
[2020-06-27 22:00] VITALS: BP 137/83
[2020-06-27 23:28] LABS: COLOR,URINE YELLOW (Yellow); GLUCOSE, URINE NEGATIVE (Neg); KETONES,URINE 15 mg/dl (Neg); LEUKOCYTE ESTERASE ,URINE NEGATIVE (Neg); NITRITES, URINE NEGATIVE (Neg); OCCULT BLOOD,URINE LARGE (Neg); PROTEIN,URINE >=300 mg/dl (Neg)
[2020-06-27 23:37] LABS: UA COLLECTION TYPE NON-SPECIFIED
[2020-06-27 23:38] LABS: CLARITY,URINE SLIGHTLY CLOUDY (Clear)
[2020-06-27 23:40] LABS: MUCUS STRANDS MANY /LPF (Neg); SQUAMOUS EPITHELIAL CELL,UR FEW /LPF (FEW)
[2020-06-27 23:41] LABS: RBC,URINE 20-50 /HPF (0-2); WBC,URINE 0-4 /HPF (0-4)
[2020-06-27 23:42] LABS: BACTERIA,URINE NONE SEEN /HPF (Neg)
[2020-06-28] MEDS: potassium CL 10mEq/100ml bag 100 ML IV PRN (00:39)
[2020-06-28] MEDS ORDERED: CefTRIAXone 2gm/D5W 50ml 50 ML IV ONE (01:05)
[2020-06-28] MEDS: morphine 4 MG/ML inj SYRINge IV PRN ×4 (02:53→19:55)
[2020-06-28 06:00] VITALS: BP 108/73
--- NOTE | 2020-06-28 06:24 | NUR ---
Problems reprioritized. Patient report given, questions answered & plan of care reviewed with CHRISTINE Mckeon.
[2020-06-28 06:35] LABS: BASOPHILS # (AUTO) 0.1 X10'3 (0-0.2); BASOPHILS % (AUTO) 0.9 % (0-1); EOSINOPHILS # (AUTO) 0.1 X10'3 (0-0.9); EOSINOPHILS % (AUTO) 1.7 % (0-6); HEMATOCRIT 24.6 % (42.0-52.0); HEMOGLOBIN 8.4 g/dl (14.0-17.9); LYMPHOCYTES # (AUTO) 1.8 X10'3 (1.1-4.8); LYMPHOCYTES % (AUTO) 21.5 % (21-51); MEAN CORPUSCULAR HEMOGLOBIN 32.4 PG (27.0-31.0); MEAN CORPUSCULAR VOLUME 95.1 FL (78-98); MEAN PLATELET VOLUME 8.4 FL (7.4-10.4); MONOCYTES # (AUTO) 1.2 X10'3 (0-0.9); MONOCYTES % (AUTO) 14.2 % (2-12); NEUTROPHILS # (AUTO) 5.1 X10'3 (1.8-7.7); NEUTROPHILS % (AUTO) 61.7 % (42-75); PLATELET COUNT 235 X10'3 (140-440); RED BLOOD COUNT 2.58 X10'6 (4.70-6.10); RED CELL DISTRIBUTION WIDTH 14.1 % (11.5-14.5); WHITE BLOOD COUNT 8.2 X10'3 (4.5-11.0)
[2020-06-28 06:49] LABS: ALANINE AMINOTRANSFERASE 12 U/L (12-78); ALBUMIN 2.7 G/DL (3.4-5.0); ALBUMIN/GLOBULIN RATIO 0.8 (1.1-1.5); ALKALINE PHOSPHATASE 44 IU/L (46-116); ANION GAP 8 (8-16); ASPARTATE AMINO TRANSFERASE 14 U/L (10-37); BILIRUBIN,TOTAL 0.5 MG/DL (0.1-1.0); BLOOD UREA NITROGEN 18 MG/DL (7-18); BUN/CREATININE RATIO 51.4 (5.4-32.0); CALCIUM 8.8 MG/DL (8.5-10.1); CHLORIDE 103 MMOL/L (99-107); CREATININE 0.35 MG/DL (0.60-1.10); GLUCOSE 99 MG/DL (70-104); POTASSIUM 3.6 MMOL/L (3.5-5.1); SODIUM 139 MMOL/L (135-145); TOTAL CARBON DIOXIDE 28.1 MMOL/L (24-32); TOTAL PROTEIN 6.3 G/DL (6.4-8.2); eGFR > 90 ML/MIN
[2020-06-28] MEDS: K and/or MAG REPLACEMENT MC SCH ×3 (08:00→20:00)
[2020-06-28] MEDS: gabapentin 300mg capsule PO SCH ×2 (08:06→16:32)
[2020-06-28] MEDS: heparin, porcine 5000 units/ml vial SQ SCH ×2 (08:07→19:54)
[2020-06-28] MEDS: valproate sod 250mg/5ml UD oral syrup PO SCH ×2 (08:07→19:53)
[2020-06-28] MEDS: baclofen 10mg tablet PO SCH ×2 (08:07→19:53)
[2020-06-28] MEDS: pantoprazole 40mg Tablet.DR PO SCH ×2 (08:07→19:53)
--- NOTE | 2020-06-28 08:07 | NUR ---
Was at bedside observing when student nurse administrated Heprain.
[2020-06-28] MEDS: levetiracetam 100mg/ml oral solution 5ml UD cup PO SCH ×2 (08:24→19:53)
--- NOTE | 2020-06-28 11:23 | NUR ---
PAGER ID: [phone] MESSAGE: [id number] Cj Carney can we change his morphine to the liquid norco suspension as needed for pain. #[id number] Linda (107 character message out of a maximum of 240) CLOSE [X]
--- NOTE | 2020-06-28 11:57 | NUR ---
Student documentation: I have reviewed all interventions, assessments performed and documented by Gilda NUNES
[2020-06-28] MEDS: albuterol 2.5 MG/3 ML nebule NEB SCH ×3 (12:00→23:29)
--- NOTE | 2020-06-28 15:46 | NUR ---
Student documentation: I have reviewed assessments performed and documented by Candy TILLMAN [facility] .
[2020-06-28 18:00] VITALS: BP 150/83
[2020-06-28 21:00] VITALS: BP 146/67
[2020-06-28] MEDS: acetaminophen 650mg rectal suppository RC PRN (21:19)
[2020-06-28] MEDS ORDERED: HYDROcodone/acetaminophen 5mg/325mg tablet PO PRN (23:10)
[2020-06-29] MEDS: albuterol 2.5 MG/3 ML nebule NEB SCH ×3 (03:41→11:38)
[2020-06-29 06:38] LABS: BASOPHILS # (AUTO) 0.1 X10'3 (0-0.2); EOSINOPHILS # (AUTO) 0.1 X10'3 (0-0.9); EOSINOPHILS % (AUTO) 1.8 % (0-6); HEMATOCRIT 24.1 % (42.0-52.0); HEMOGLOBIN 8.2 g/dl (14.0-17.9); LYMPHOCYTES # (AUTO) 1.6 X10'3 (1.1-4.8); LYMPHOCYTES % (AUTO) 20.9 % (21-51); MEAN CORPUSCULAR HEMOGLOBIN 32.4 PG (27.0-31.0); MEAN CORPUSCULAR HGB CONC 34.1 g/dL (33.0-36.5); MEAN CORPUSCULAR VOLUME 94.8 FL (78-98); MEAN PLATELET VOLUME 8.4 FL (7.4-10.4); MONOCYTES # (AUTO) 0.9 X10'3 (0-0.9); MONOCYTES % (AUTO) 12.7 % (2-12); NEUTROPHILS # (AUTO) 4.8 X10'3 (1.8-7.7); NEUTROPHILS % (AUTO) 63.6 % (42-75); PLATELET COUNT 273 X10'3 (140-440); RED BLOOD COUNT 2.54 X10'6 (4.70-6.10); RED CELL DISTRIBUTION WIDTH 14.2 % (11.5-14.5); WHITE BLOOD COUNT 7.5 X10'3 (4.5-11.0)
[2020-06-29 06:56] LABS: ALANINE AMINOTRANSFERASE 15 U/L (12-78); ALBUMIN 2.6 G/DL (3.4-5.0); ALBUMIN/GLOBULIN RATIO 0.7 (1.1-1.5); ALKALINE PHOSPHATASE 45 IU/L (46-116); ANION GAP 7 (8-16); ASPARTATE AMINO TRANSFERASE 12 U/L (10-37); BILIRUBIN,TOTAL 0.5 MG/DL (0.1-1.0); BLOOD UREA NITROGEN 17 MG/DL (7-18); BUN/CREATININE RATIO 51.5 (5.4-32.0); CALCIUM 8.5 MG/DL (8.5-10.1); CHLORIDE 104 MMOL/L (99-107); CREATININE 0.33 MG/DL (0.60-1.10); GLUCOSE 103 MG/DL (70-104); POTASSIUM 3.3 MMOL/L (3.5-5.1); SODIUM 140 MMOL/L (135-145); TOTAL CARBON DIOXIDE 29.5 MMOL/L (24-32); TOTAL PROTEIN 6.3 G/DL (6.4-8.2); eGFR > 90 ML/MIN
[2020-06-29] MEDS: heparin, porcine 5000 units/ml vial SQ SCH (08:00)
[2020-06-29] MEDS ORDERED: neomy sulf/bacitrac zn/polymixin b oint 14.2 gm tube TP SCH (08:00)
[2020-06-29] MEDS: K and/or MAG REPLACEMENT MC SCH (08:00)
[2020-06-29 08:47] VITALS: BP 115/61
[2020-06-29] MEDS: valproate sod 250mg/5ml UD oral syrup PO SCH (09:22)
[2020-06-29] MEDS: levetiracetam 100mg/ml oral solution 5ml UD cup PO SCH (09:24)
[2020-06-29] MEDS: gabapentin 300mg capsule PO SCH ×2 (09:27)
[2020-06-29] MEDS: baclofen 10mg tablet PO SCH (09:28)
[2020-06-29] MEDS: pantoprazole 40mg Tablet.DR PO SCH (09:29)
[2020-06-29 11:13] VITALS: BP 120/69
[2020-06-29] MEDS ORDERED: ACET5SOL2 PO (12:14)
--- NOTE | 2020-06-29 15:59 | NUR ---
Pt IV was removed cannula intact lindsay removed. Employee from [facility] brought patient chair we hoyered patient into chair. employee was given script for tylenol with codeine and the discharge papers. Lili manager marketing at [facility] notified
== END 2020-06-29 15:05 | disposition home or self-care (01) | DRG 308 ==
LOC: ER 22:33 → UNDOADMIN 06-24 01:39 → ED HOLD 06-24 01:39 → ORTHO 4S 06-24 03:00 → ED HOLD 06-24 03:00
PROVIDERS: ADMIT Internal Medicine; ATTEND Family Medicine
PROC: 0QS806Z Reposition Right Femoral Shaft with Intramedullary Internal Fixation Device, Open Approach (ICD-10-PCS; principal; 2020-06-25 11:45)
DX: S72.351A Displaced comminuted fracture of shaft of right femur, initial encounter for closed fracture (principal); E87.6 Hypokalemia; W06.XXXA Fall from bed, initial encounter; G40.909 Epilepsy, unspecified, not intractable, without status epilepticus; G80.9 Cerebral palsy, unspecified; J98.11 Atelectasis; Z79.82 Long term (current) use of aspirin; Y93.89 Activity, other specified; Y92.89 Other specified places as the place of occurrence of the external cause; Y99.8 Other external cause status; Z88.2 Allergy status to sulfonamides; Z88.8 Allergy status to other drugs, medicaments and biological substances; Z95.0 Presence of cardiac pacemaker; Z79.899 Other long term (current) drug therapy
CPT/HCPCS: 36415; 71045; 73552; 76000; 80053; 81001; 82948; 85007; 85025; 85730; 86885; 86900; 86901; 94640; 94760; 96374; 96375; 96376; 97161; 97530; 99285; A4618; A6455; C1713; G0378; J0690; J0696; J1100; J1644; J2001; J2250; J2270; J2405; J2704; J2710; J3010; J3480; J3490; J7030; J7120

== ENCOUNTER 2020-07-27 11:04 | Emergency (ER) | payer MEDICAID ==
[~2020-07-27] VITALS: Ht 170.2 cm; Wt 72.7 kg
[~2020-07-27 11:04] MED LIST changes: +ACET5SOL2 PO; -LACO200T2 PO
[2020-07-27] MEDS ORDERED: CefTRIAXone 2gm/D5W 50ml 50 ML IV ONE (11:20)
[2020-07-27] MEDS ORDERED: normal saline 1000ML IV soln IV ONE (11:20)
[2020-07-27] MEDS ORDERED: acetaminophen 650mg rectal suppository RC ONE (11:20)
[2020-07-27 13:04] LABS: CLARITY,URINE SLIGHTLY CLOUDY (Clear); COLOR,URINE YELLOW (Yellow); GLUCOSE, URINE NEGATIVE (Neg); KETONES,URINE 15 mg/dl (Neg); LEUKOCYTE ESTERASE ,URINE NEGATIVE (Neg); NITRITES, URINE NEGATIVE (Neg); OCCULT BLOOD,URINE TRACE-INTACT (Neg); PROTEIN,URINE 30 mg/dl (Neg); UROBILINOGEN,URINE 0.2 E.U/dL (0.2-1.0)
[2020-07-27 13:13] LABS: UA COLLECTION TYPE STRAIGHT CATH
[2020-07-27 13:15] LABS: RBC,URINE 0-2 /HPF (0-2); WBC,URINE 20-30 /HPF (0-4)
[2020-07-27 13:16] LABS: BACTERIA,URINE NONE SEEN /HPF (Neg); MUCUS STRANDS MODERATE /LPF (Neg); SQUAMOUS EPITHELIAL CELL,UR FEW /LPF (FEW); WBC CLUMPS,URINE MODERATE /HPF (NEGATIVE)
[2020-07-27 14:29] LABS: BASOPHILS # (AUTO) 0.1 X10'3 (0-0.2); BASOPHILS % (AUTO) 0.5 % (0-1); EOSINOPHILS % (AUTO) 0.1 % (0-6); LYMPHOCYTES # (AUTO) 1.6 X10'3 (1.1-4.8); LYMPHOCYTES % (AUTO) 11.6 % (21-51); MEAN CORPUSCULAR HEMOGLOBIN 30.9 PG (27.0-31.0); MEAN CORPUSCULAR HGB CONC 32.4 g/dL (33.0-36.5); MEAN CORPUSCULAR VOLUME 95.2 FL (78-98); MEAN PLATELET VOLUME 9.2 FL (7.4-10.4); MONOCYTES # (AUTO) 1.5 X10'3 (0-0.9); MONOCYTES % (AUTO) 10.6 % (2-12); NEUTROPHILS # (AUTO) 10.8 X10'3 (1.8-7.7); NEUTROPHILS % (AUTO) 77.2 % (42-75); PLATELET COUNT 250 X10'3 (140-440); RED BLOOD COUNT 4.21 X10'6 (4.70-6.10); RED CELL DISTRIBUTION WIDTH 15.2 % (11.5-14.5)
[2020-07-27 14:34] LABS: ALANINE AMINOTRANSFERASE 16 U/L (12-78); ALBUMIN 3.9 G/DL (3.4-5.0); ALBUMIN/GLOBULIN RATIO 0.9 (1.1-1.5); ALKALINE PHOSPHATASE 194 IU/L (46-116); ANION GAP 8 (8-16); ASPARTATE AMINO TRANSFERASE 15 U/L (10-37); BILIRUBIN,TOTAL 0.2 MG/DL (0.1-1.0); BLOOD UREA NITROGEN 18 MG/DL (7-18); CHLORIDE 106 MMOL/L (99-107); CREATININE 0.45 MG/DL (0.60-1.10); GLUCOSE 89 MG/DL (70-104); POTASSIUM 3.4 MMOL/L (3.5-5.1); SODIUM 143 MMOL/L (135-145); TOTAL CARBON DIOXIDE 28.8 MMOL/L (24-32); TOTAL PROTEIN 8.2 G/DL (6.4-8.2); eGFR > 90 ML/MIN
[2020-07-27] MEDS ORDERED: CEFD250S3 PO ×2 (14:43→14:46)
[2020-07-27 15:35] VITALS: BP 102/65
== END 2020-07-27 16:19 | disposition home or self-care (01) ==
LOC: ER 11:05
DX: N39.0 Urinary tract infection, site not specified (principal); Z20.828 Contact with and (suspected) exposure to other viral communicable diseases; R61 Generalized hyperhidrosis; R00.0 Tachycardia, unspecified; Z86.69 Personal history of other diseases of the nervous system and sense organs; Z95.0 Presence of cardiac pacemaker; Z88.2 Allergy status to sulfonamides; Z88.1 Allergy status to other antibiotic agents; Z88.7 Allergy status to serum and vaccine; Z91.048 Other nonmedicinal substance allergy status; Z79.899 Other long term (current) drug therapy
CPT/HCPCS: 36415; 71045; 80053; 81001; 83605; 84145; 85025; 87040; 87088; 87502; 87503; 87635; 96365; 99285; C9803; J0696; J7030

== ENCOUNTER 2021-08-23 10:08 | Emergency (ER) | payer MEDICAID ==
[~2021-08-23] VITALS: Ht 170.2 cm; Wt 63.6 kg
[~2021-08-23 10:08] MED LIST changes: +CEFD250S3 PO
[2021-08-23 11:12] VITALS: BP 128/101
[2021-08-23] MEDS ORDERED: ALBU8HFA PO (12:54)
[2021-08-23] MEDS ORDERED: ROBCFL PO (12:54)
[2021-08-23] MEDS ORDERED: EUCA50OI5 TP (13:02)
== END 2021-08-23 14:01 | disposition home or self-care (01) ==
LOC: ER 10:09
DX: J06.9 Acute upper respiratory infection, unspecified (principal); Z20.822 Contact with and (suspected) exposure to COVID-19; Z88.1 Allergy status to other antibiotic agents; Z88.2 Allergy status to sulfonamides; Z88.7 Allergy status to serum and vaccine; Z88.8 Allergy status to other drugs, medicaments and biological substances; Z91.048 Other nonmedicinal substance allergy status; Z79.2 Long term (current) use of antibiotics; Z79.899 Other long term (current) drug therapy; Z95.0 Presence of cardiac pacemaker
CPT/HCPCS: 87635; 99283; C9803

== ENCOUNTER 2021-11-05 14:23 | Inpatient (IN) | payer MEDICAID ==
[~2021-11-05] VITALS: Ht 167.6 cm; Wt 70.1 kg
[~2021-11-05 14:23] MED LIST changes: +EUCA50OI5 TP
[2021-11-05] MEDS ORDERED: normal saline 1000ml 1,000 ML IVB ONE (15:25)
[2021-11-05] MEDS ORDERED: acetaminophen 650mg rectal suppository RC ONE ×2 (15:25)
[2021-11-05] MEDS ORDERED: CefTRIAXone/D5W-Rocephin 1gm 50 ML IV ONE (15:30)
[2021-11-05 15:44] LABS: BASOPHILS % (AUTO) 0.4 % (0-1); EOSINOPHILS % (AUTO) 0 % (0-6); HEMATOCRIT 40.3 % (42.0-52.0); HEMOGLOBIN 13.6 g/dl (14.0-17.9); LYMPHOCYTES # (AUTO) 1.2 X10'3 (1.1-4.8); LYMPHOCYTES % (AUTO) 12.1 % (21-51); MEAN CORPUSCULAR HEMOGLOBIN 31.2 PG (27.0-31.0); MEAN CORPUSCULAR HGB CONC 33.7 g/dL (33.0-36.5); MEAN CORPUSCULAR VOLUME 92.6 FL (78-98); MEAN PLATELET VOLUME 8.4 FL (7.4-10.4); MONOCYTES # (AUTO) 1.4 X10'3 (0-0.9); MONOCYTES % (AUTO) 14.1 % (2-12); NEUTROPHILS % (AUTO) 73.4 % (42-75); PLATELET COUNT 281 X10'3 (140-440); RED BLOOD COUNT 4.35 X10'6 (4.70-6.10); RED CELL DISTRIBUTION WIDTH 15.6 % (11.5-14.5); WHITE BLOOD COUNT 9.6 X10'3 (4.5-11.0)
[2021-11-05 16:00] LABS: ALANINE AMINOTRANSFERASE 17 U/L (12-78); ALBUMIN 3.7 G/DL (3.4-5.0); ALBUMIN/GLOBULIN RATIO 0.8 (1.1-1.5); ALKALINE PHOSPHATASE 85 IU/L (46-116); ANION GAP 8 (8-16); ASPARTATE AMINO TRANSFERASE 13 U/L (10-37); BILIRUBIN,TOTAL 0.2 MG/DL (0.1-1.0); BLOOD UREA NITROGEN 16 MG/DL (7-18); CALCIUM 8.8 MG/DL (8.5-10.1); CHLORIDE 100 MMOL/L (99-107); CREATININE 0.64 MG/DL (0.60-1.10); GLUCOSE 84 MG/DL (70-104); POTASSIUM 3.8 MMOL/L (3.5-5.1); SODIUM 138 MMOL/L (135-145); TOTAL CARBON DIOXIDE 29.6 MMOL/L (24-32); TOTAL PROTEIN 8.2 G/DL (6.4-8.2); eGFR > 90 ML/MIN
[2021-11-05] MEDS ORDERED: azithromycin/NS 500mg/250ml 250 ML IV ONE (16:30)
[2021-11-05] MEDS ORDERED: normal saline 1000ML IV soln IV ONE (16:30)
[2021-11-05] MEDS ORDERED: ketorolac tromethamine 15mg/ml inj. IV ONE (16:35)
[2021-11-05 16:36] LABS: CLARITY,URINE CLEAR (Clear); COLOR,URINE YELLOW (Yellow); GLUCOSE, URINE NEGATIVE (Neg); KETONES,URINE TRACE mg/dl (Neg); LEUKOCYTE ESTERASE ,URINE NEGATIVE (Neg); NITRITES, URINE NEGATIVE (Neg); OCCULT BLOOD,URINE NEGATIVE (Neg); PROTEIN,URINE TRACE mg/dl (Neg); UROBILINOGEN,URINE 0.2 E.U/dL (0.2-1.0)
[2021-11-05 16:37] LABS: UA COLLECTION TYPE FOLEY CATH
[2021-11-05 16:59] LABS: BACTERIA,URINE NONE SEEN /HPF (Neg); MUCUS STRANDS FEW /LPF (Neg); RBC,URINE 0-2 /HPF (0-2); SQUAMOUS EPITHELIAL CELL,UR NONE SEEN /LPF (FEW); WBC,URINE 0-4 /HPF (0-4)
[2021-11-05] MEDS ORDERED: ondansetron/PF 4mg/2ml inj IV PRN (18:10)
[2021-11-05] MEDS ORDERED: magnesium 2GM in 50ml NS 50 ML IV PRN (18:10)
[2021-11-05] MEDS ORDERED: potassium Cl 20 mEq SR tablet PO PRN ×2 (18:10)
[2021-11-05] MEDS ORDERED: HYDROcodone/acetaminophen 5mg/325mg tablet PO PRN (18:10)
[2021-11-05] MEDS ORDERED: magnesium hydroxide 30ml (MOM) UD suspension PO PRN (18:10)
[2021-11-05] MEDS ORDERED: acetaminophen 325mg tablet PO PRN ×2 (18:10)
[2021-11-05] MEDS ORDERED: magnesium 4gm in 100ml NS 100 ML IV PRN (18:10)
[2021-11-05] MEDS ORDERED: mag hydrox/Alum hydrox/simeth 30ml oral suspension PO PRN (18:10)
[2021-11-05] MEDS ORDERED: magnesium Cl slow-release 64mg tablet PO PRN (18:10)
[2021-11-05] MEDS ORDERED: levetiracetam inj 1,000 MG in normal saline 100ml IV soln 90 ML IV STA (18:21)
[2021-11-05] MEDS: K and/or MAG REPLACEMENT MC SCH (18:39)
[2021-11-05] MEDS: normal saline 1000ml 1,000 ML IV SCH (18:59)
[2021-11-05] MEDS: levoFLOXACIN-Levaquin 500mg/D5 100 ML IV SCH (19:54)
[2021-11-05] MEDS ORDERED: temazepam 15mg capsule PO PRN (21:00)
[2021-11-05] MEDS ORDERED: LACO200T2 PO (21:19)
[2021-11-05] MEDS ORDERED: DIME118C3 RC ×2 (21:19)
[2021-11-05] MEDS ORDERED: POTA8TAB69 PO (21:19)
[2021-11-05] MEDS ORDERED: EUCA50OI5 TP (21:19)
[2021-11-05] MEDS ORDERED: CHOL400T32 PO (21:19)
[2021-11-05] MEDS ORDERED: ALBU8.5H17 IH (21:19)
[2021-11-06] VITALS (7 sets, daily range): BP systolic 107–139; BP diastolic 56–89
[2021-11-06 00:40] LABS: C-REACTIVE PROTEIN 8.41 MG/DL (0.0-0.5)
[2021-11-06] MEDS: heparin, porcine 5000 units/ml vial SQ SCH ×3 (00:55→15:54)
[2021-11-06] MEDS: normal saline 1000ml 1,000 ML IV SCH (00:55)
[2021-11-06] MEDS ORDERED: DEXAMETHASONE 6 MG TABLET PO SCH (01:17)
--- NOTE | 2021-11-06 01:55 | NUR ---
I called Dr. Burton regarding the Po order of Decadron that Dr. Henriquez from ER ordered for the patient. I informed Dr. Burton that patient is unable to swallow and if we can change the order to IV. He gave me the order and also asked why the DD was not drawn yet and I explained to him that we attempted to draw the blood and due to the pt's contractures we were unable to get the blood drawn. Told him that we would have lab ball fringe machine operator draw labs in the am. He was fine with this explanation.
[2021-11-06] MEDS ORDERED: dexamethasone 4mg/ml inj IV SCH (02:00)
[2021-11-06] MEDS: acetaminophen 650mg rectal suppository RC PRN ×3 (02:01→16:53)
[2021-11-06] MEDS: dexamethasone 6 MG in D5W 100ml IV soln IV SCH (02:35)
--- NOTE | 2021-11-06 06:26 | NUR ---
Problems reprioritized. Patient report given, questions answered & plan of care reviewed with Alona KING.
--- NOTE | 2021-11-06 07:18 | NUR ---
PAGER ID: [phone] MESSAGE: Luis Carney [phone] FYI critical positive BC gram positive cocci long chain, gram pos. cocci clusters aerobic bottle from IV start on 11/05 at 1530 Pt. has also been tachy in the 120s at rest. Alona [id number]
[2021-11-06 07:59] LABS: BASOPHILS % (AUTO) 0.3 % (0-1); EOSINOPHILS % (AUTO) 0 % (0-6); HEMOGLOBIN 11.5 g/dl (14.0-17.9); LYMPHOCYTES # (AUTO) 0.7 X10'3 (1.1-4.8); MEAN CORPUSCULAR HEMOGLOBIN 31.5 PG (27.0-31.0); MEAN CORPUSCULAR HGB CONC 33.7 g/dL (33.0-36.5); MEAN CORPUSCULAR VOLUME 93.2 FL (78-98); MEAN PLATELET VOLUME 9.1 FL (7.4-10.4); MONOCYTES # (AUTO) 0.4 X10'3 (0-0.9); MONOCYTES % (AUTO) 5.8 % (2-12); NEUTROPHILS # (AUTO) 5.1 X10'3 (1.8-7.7); NEUTROPHILS % (AUTO) 82.9 % (42-75); PLATELET COUNT 235 X10'3 (140-440); RED BLOOD COUNT 3.65 X10'6 (4.70-6.10); RED CELL DISTRIBUTION WIDTH 15.9 % (11.5-14.5); WHITE BLOOD COUNT 6.2 X10'3 (4.5-11.0)
[2021-11-06] MEDS ORDERED: azithromycin/NS 500mg/250ml 250 ML IV SCH ×2 (08:00)
[2021-11-06] MEDS: K and/or MAG REPLACEMENT MC SCH ×2 (08:00→20:00)
[2021-11-06] MEDS ORDERED: CefTRIAXone 2gm/D5W 50ml BAG 50 ML IV SCH (08:00)
[2021-11-06] MEDS: levetiracetam-NS 1000mg/100ml 100 ML IV SCH ×2 (08:08→21:52)
[2021-11-06] MEDS: morphine 2 MG/ML inj. syringe IV PRN ×2 (08:20→16:53)
[2021-11-06 08:22] LABS: ALANINE AMINOTRANSFERASE 19 U/L (12-78); ALBUMIN 3.2 G/DL (3.4-5.0); ALBUMIN/GLOBULIN RATIO 0.8 (1.1-1.5); ALKALINE PHOSPHATASE 63 IU/L (46-116); ANION GAP 11 (8-16); ASPARTATE AMINO TRANSFERASE 39 U/L (10-37); BILIRUBIN,TOTAL 0.3 MG/DL (0.1-1.0); BLOOD UREA NITROGEN 7 MG/DL (7-18); BUN/CREATININE RATIO 18.4 (5.4-32.0); CALCIUM 7.7 MG/DL (8.5-10.1); CHLORIDE 101 MMOL/L (99-107); CREATININE 0.38 MG/DL (0.60-1.10); GLUCOSE 92 MG/DL (70-104); POTASSIUM 3.7 MMOL/L (3.5-5.1); SODIUM 136 MMOL/L (135-145); TOTAL CARBON DIOXIDE 23.8 MMOL/L (24-32); TOTAL PROTEIN 7.1 G/DL (6.4-8.2); eGFR > 90 ML/MIN
[2021-11-06 08:23] LABS: D-DIMER 0.35 MG/L FEU (0-0.50)
--- NOTE | 2021-11-06 10:12 | NUR ---
Initial: Pt admit for sepsis secondary to bilat PNA, right pleural effusion, fecal impaction, and bilateral hip effusion after a witnessed seizure. Per EMR pt positive for COVID. Per H&P pt reportedly has been gagging during feeding and per check weigher pt unable to swallow. Pt NPO at this time. Recommend BSS with ST prior to PO diet advancement. Noted pt with a low Anatoly of 9, per physical assessment pt with 4+ scrotal edema and skin intact, though wound care has been consulted for further assessment. LBM 11/06, documented as diarrhea and copious in size. No appropriate nutrition intervention at this time in view of NPO status. Will continue to follow closely and make recommendations as appropriate. Recommendations: 1) Advance to regular diet as medically indicated; BSS with ST prior to PO diet advancement 2) Monitor need for ONS/additional protein with diet advancement 3) Consider EN IF PO diet unable to be advanced 4) Bowel care per rx 5) Weekly scaled weights Addendum: 11/06/21 at [address] Amended: Links added.
[2021-11-06] MEDS: dextrose 5%-normal saline 1,000 ML IV SCH (12:37)
[2021-11-06] MEDS ORDERED: REMDESIVIR INJ 200 MG in normal saline 100ml IV soln 100 ML IV ONE (14:30)
--- NOTE | 2021-11-06 18:38 | NUR ---
Gave report to Laura KING.
--- NOTE | 2021-11-06 19:22 | NUR ---
Patient in room ORTHO 4007. I have received report from DICK KING and had the opportunity to ask questions and assume patient care.
[2021-11-06] MEDS: levoFLOXACIN-Levaquin 500mg/D5 100 ML IV SCH (22:05)
[2021-11-07] MEDS: heparin, porcine 5000 units/ml vial SQ SCH ×4 (00:32→23:44)
[2021-11-07 02:00] VITALS: BP 140/83
[2021-11-07] MEDS: morphine 2 MG/ML inj. syringe IV PRN (02:10)
[2021-11-07] MEDS: dextrose 5%-normal saline 1,000 ML IV SCH ×2 (04:34→16:51)
[2021-11-07] MEDS: acetaminophen 650mg rectal suppository RC PRN ×2 (04:59→12:00)
[2021-11-07 05:00] VITALS: BP 142/95
--- NOTE | 2021-11-07 06:30 | NUR ---
Problems reprioritized. Patient report given, questions answered & plan of care reviewed with COLLEEN RN.
--- NOTE | 2021-11-07 06:50 | NUR ---
Patient in room ORTHO 4009. I have received report from CHRISTINE Sanchez and had the opportunity to ask questions and assume patient care.
[2021-11-07 06:52] LABS: BASOPHILS % (AUTO) 0.4 % (0-1); EOSINOPHILS % (AUTO) 0 % (0-6); HEMATOCRIT 32.6 % (42.0-52.0); HEMOGLOBIN 11.1 g/dl (14.0-17.9); LYMPHOCYTES # (AUTO) 1.4 X10'3 (1.1-4.8); LYMPHOCYTES % (AUTO) 32.1 % (21-51); MEAN CORPUSCULAR HEMOGLOBIN 31.6 PG (27.0-31.0); MEAN CORPUSCULAR HGB CONC 34.2 g/dL (33.0-36.5); MEAN CORPUSCULAR VOLUME 92.3 FL (78-98); MEAN PLATELET VOLUME 8.8 FL (7.4-10.4); MONOCYTES # (AUTO) 0.6 X10'3 (0-0.9); MONOCYTES % (AUTO) 15.3 % (2-12); NEUTROPHILS # (AUTO) 2.2 X10'3 (1.8-7.7); NEUTROPHILS % (AUTO) 52.2 % (42-75); PLATELET COUNT 210 X10'3 (140-440); RED BLOOD COUNT 3.53 X10'6 (4.70-6.10); RED CELL DISTRIBUTION WIDTH 15.4 % (11.5-14.5); WHITE BLOOD COUNT 4.2 X10'3 (4.5-11.0)
[2021-11-07 07:02] LABS: ALANINE AMINOTRANSFERASE 37 U/L (12-78); ALBUMIN 3.1 G/DL (3.4-5.0); ALBUMIN/GLOBULIN RATIO 0.9 (1.1-1.5); ALKALINE PHOSPHATASE 59 IU/L (46-116); ANION GAP 10 (8-16); ASPARTATE AMINO TRANSFERASE 118 U/L (10-37); BILIRUBIN,TOTAL 0.2 MG/DL (0.1-1.0); BLOOD UREA NITROGEN 9 MG/DL (7-18); BUN/CREATININE RATIO 16.7 (5.4-32.0); C-REACTIVE PROTEIN 5.83 MG/DL (0.0-0.5); CALCIUM 7.9 MG/DL (8.5-10.1); CHLORIDE 99 MMOL/L (99-107); CREATININE 0.54 MG/DL (0.60-1.10); GLUCOSE 91 MG/DL (70-104); POTASSIUM 3.4 MMOL/L (3.5-5.1); SODIUM 135 MMOL/L (135-145); TOTAL CARBON DIOXIDE 25.6 MMOL/L (24-32); TOTAL PROTEIN 6.7 G/DL (6.4-8.2); eGFR > 90 ML/MIN
[2021-11-07] MEDS ORDERED: glucagon, human recombinant 1mg kit SUBCUT PRN (09:25)
[2021-11-07] MEDS ORDERED: dextrose 50%-water 50ml dispensing syringe IV PRN ×2 (09:25)
[2021-11-07] MEDS: K and/or MAG REPLACEMENT MC SCH ×2 (09:36→20:00)
[2021-11-07] MEDS ORDERED: ALBUTEROL INHALER 1 PUFF/90 MCG INHALER IH PRN (09:40)
[2021-11-07 10:00] VITALS: BP 123/83
[2021-11-07] MEDS: dexamethasone 6 MG in D5W 100ml IV soln IV SCH (10:42)
[2021-11-07] MEDS: levetiracetam-NS 1000mg/100ml 100 ML IV SCH ×2 (11:03→21:01)
[2021-11-07] MEDS: REMDESIVIR INJ 100 MG in normal saline 100ml IV soln 100 ML IV SCH (11:35)
[2021-11-07 11:53] LABS: PLATELET ESTIMATE NORMAL; TOTAL CELLS COUNTED 100
[2021-11-07] MEDS ORDERED: metroNIDAZOLE-Flagyl 500mg/NS 100 ML IV SCH (12:00)
--- NOTE | 2021-11-07 12:00 | NUR ---
Dr Han notified of 104.0 axillary temp. ordered flagyl & mentioned pt has an empyema & is having a thoracentesis tomorrow.
[2021-11-07] MEDS: potassium CL 10mEq/100ml bag 100 ML IV PRN ×4 (12:38→18:49)
[2021-11-07] MEDS ORDERED: AMYLASE PO PRN (13:20)
[2021-11-07] MEDS ORDERED: MENTHOL TP PRN (13:20)
[2021-11-07] MEDS ORDERED: [UNRECOGNIZED DRUG - OTHER] PO PRN (13:20)
[2021-11-07] MEDS ORDERED: bisacodyl 10mg suppository rectal RC PRN (13:20)
[2021-11-07] MEDS ORDERED: guaiFENesin/DM 10ml UD oral syrup PO PRN (13:20)
[2021-11-07] MEDS ORDERED: PAPAYA PO PRN (13:20)
[2021-11-07] MEDS ORDERED: CAMPHOR TP PRN (13:20)
[2021-11-07] MEDS ORDERED: PROTEASE PO PRN (13:20)
[2021-11-07] MEDS ORDERED: EUCALYPTUS OIL TP PRN (13:20)
[2021-11-07] MEDS ORDERED: DIMETHICONE RC PRN (13:20)
[2021-11-07] MEDS: metroNIDAZOLE-Flagyl 500mg/NS 100 ML IV SCH ×2 (13:28→23:44)
[2021-11-07 14:00] VITALS: BP 115/62
--- NOTE | 2021-11-07 16:00 | NUR ---
ordered several PO meds. Pt is NPO. okay'd for us to non-admin the PO meds until ST eval tomorrow then orders can be changed @ that time if needed.
[2021-11-07 18:00] VITALS: BP 129/79
--- NOTE | 2021-11-07 18:30 | NUR ---
Problems reprioritized. Patient report given, questions answered & plan of care reviewed with CHRISTINE Zuniga.
[2021-11-07] MEDS: docusate sod 100mg capsule PO SCH (19:26)
[2021-11-07] MEDS: LACOSAMIDE 50 MG TABLET PO SCH (19:26)
[2021-11-07] MEDS: pantoprazole 40mg Tablet.DR PO SCH (19:26)
[2021-11-07] MEDS: divalproex sodium 500mg tablet.DR PO SCH (19:26)
[2021-11-07] MEDS: baclofen 10mg tablet PO SCH (19:26)
[2021-11-07] MEDS: ascorbic acid 500mg tablet PO SCH (19:26)
[2021-11-07] MEDS ORDERED: DIMETHICONE RC SCH (20:00)
[2021-11-07] MEDS ORDERED: levetiracetam 250mg tablet PO SCH (20:00)
[2021-11-07] MEDS: gabapentin 300mg capsule PO SCH (20:54)
[2021-11-07] MEDS: levoFLOXACIN-Levaquin 500mg/D5 100 ML IV SCH (21:01)
[2021-11-07 22:00] VITALS: BP 105/65
[2021-11-08 02:00] VITALS: BP 121/71
[2021-11-08] MEDS: morphine 2 MG/ML inj. syringe IV PRN ×2 (02:15→19:58)
[2021-11-08] MEDS: dextrose 5%-normal saline 1,000 ML IV SCH ×2 (05:48→21:46)
[2021-11-08 07:07] LABS: EOSINOPHILS % (AUTO) 0.3 % (0-6); HEMOGLOBIN 11.2 g/dl (14.0-17.9)
[2021-11-08 07:10] LABS: BASOPHILS % (AUTO) 0.2 % (0-1); HEMATOCRIT 32.7 % (42.0-52.0); LYMPHOCYTES # (AUTO) 1.3 X10'3 (1.1-4.8); LYMPHOCYTES % (AUTO) 54.1 % (21-51); MEAN CORPUSCULAR HEMOGLOBIN 31.4 PG (27.0-31.0); MEAN CORPUSCULAR HGB CONC 34.2 g/dL (33.0-36.5); MEAN CORPUSCULAR VOLUME 91.8 FL (78-98); MONOCYTES # (AUTO) 0.4 X10'3 (0-0.9); MONOCYTES % (AUTO) 18.5 % (2-12); NEUTROPHILS # (AUTO) 0.7 X10'3 (1.8-7.7); NEUTROPHILS % (AUTO) 26.9 % (42-75); PLATELET COUNT 199 X10'3 (140-440); RED BLOOD COUNT 3.56 X10'6 (4.70-6.10); RED CELL DISTRIBUTION WIDTH 15.2 % (11.5-14.5); WHITE BLOOD COUNT 2.4 X10'3 (4.5-11.0)
[2021-11-08 07:29] LABS: ALANINE AMINOTRANSFERASE 38 U/L (12-78); ALBUMIN 3.1 G/DL (3.4-5.0); ALBUMIN/GLOBULIN RATIO 0.9 (1.1-1.5); ALKALINE PHOSPHATASE 55 IU/L (46-116); ANION GAP 7 (8-16); ASPARTATE AMINO TRANSFERASE 131 U/L (10-37); BILIRUBIN,TOTAL 0.3 MG/DL (0.1-1.0); BLOOD UREA NITROGEN 8 MG/DL (7-18); BUN/CREATININE RATIO 18.6 (5.4-32.0); C-REACTIVE PROTEIN 5.73 MG/DL (0.0-0.5); CALCIUM 8.2 MG/DL (8.5-10.1); CHLORIDE 103 MMOL/L (99-107); CREATININE 0.43 MG/DL (0.60-1.10); GLUCOSE 103 MG/DL (70-104); POTASSIUM 3.7 MMOL/L (3.5-5.1); SODIUM 138 MMOL/L (135-145); TOTAL PROTEIN 6.6 G/DL (6.4-8.2); eGFR > 90 ML/MIN
[2021-11-08] MEDS: ascorbic acid 500mg tablet PO SCH ×2 (08:00→20:00)
[2021-11-08] MEDS: pantoprazole 40mg Tablet.DR PO SCH ×2 (08:00→20:00)
[2021-11-08] MEDS: K and/or MAG REPLACEMENT MC SCH ×2 (08:00→20:00)
[2021-11-08] MEDS: gabapentin 300mg capsule PO SCH ×3 (08:00→21:00)
[2021-11-08] MEDS: divalproex sodium 500mg tablet.DR PO SCH ×2 (08:00→20:00)
[2021-11-08] MEDS: heparin, porcine 5000 units/ml vial SQ SCH ×3 (08:00→23:50)
[2021-11-08] MEDS: lactobacillus rhamnosus 10,000 MMU CELLS/CAPSULE PO SCH (08:00)
[2021-11-08] MEDS: LACOSAMIDE 50 MG TABLET PO SCH ×2 (08:00→20:00)
[2021-11-08] MEDS: baclofen 10mg tablet PO SCH ×2 (08:00→20:00)
[2021-11-08] MEDS: docusate sod 100mg capsule PO SCH ×2 (08:00→20:00)
[2021-11-08] MEDS: REMDESIVIR INJ 100 MG in normal saline 100ml IV soln 100 ML IV SCH (08:28)
[2021-11-08] MEDS: metroNIDAZOLE-Flagyl 500mg/NS 100 ML IV SCH ×3 (08:28→23:49)
[2021-11-08] MEDS: dexamethasone 6 MG in D5W 100ml IV soln IV SCH (08:28)
[2021-11-08] MEDS: levetiracetam-NS 1000mg/100ml 100 ML IV SCH ×2 (08:28→19:57)
[2021-11-08 08:38] LABS: TOTAL CELLS COUNTED 100
[2021-11-08 08:39] LABS: PLATELET ESTIMATE NORMAL
[2021-11-08 09:05] LABS: D-DIMER < 0.19 MG/L FEU (0-0.50)
[2021-11-08 14:00] VITALS: BP 104/71
--- NOTE | 2021-11-08 14:00 | NUR ---
PRESSURE ULCER EDUCATION: DEFINITION: A pressure ulcer is an area of skin that breaks down when you stay in one position too long. The constant pressure against the skin reduces the blood flow to that area and the affected tissue dies. CAUSES: "Being bedridden or in a wheelchair "Fragile skin "Having a chronic condition, such as diabetes or vascular disease "Inability to move certain parts of your body without assistance "Older age "Incontinence of urine or stool SYMPTOMS: "A reddened area that DOES NOT turn white when pressed on - this can be the beginning of a pressure ulcer "A blister, deep sore or a crater - these can be advanced pressure ulcers FIRST AID: "Relieve the pressure on this area "Keep the area clean and dry "Call your primary doctor if you see any of the above symptoms "DO NOT massage the area "DO NOT use a donut shaped or ring shaped pillow- these actually interfere with the blood flow and cause complications PREVENTION: "Check for pressure ulcers everyday "Change position at least every two hours to relieve pressure "Use items that help relieve pressure- pillows, sheepskin, foam padding, and powders. "Keep skin clean and dry "Eat healthy well balanced meals "Exercise daily IF YOU SEE ANY OF THESE SYMPTOMS WHILE IN THE HOSPITAL - TELL YOUR NURSE IMMEDIATELY. IF YOU SEE ANY OF THESE SYMPTOMS WHILE AT HOME OR HAVE ANY QUESTIONS OR CONCERNS ABOUT PRESSURE ULCERS - CALL YOUR PRIMARY DOCTOR IMMEDIATELY. Addendum: 11/08/21 at 1401 by Laura Barroso RN Amended: Links added.
--- NOTE | 2021-11-08 17:24 | NUR ---
Patient has been repositioned from side to side, pillows placed under arms, legs, feet, in between legs. Patient failed swallow test, remains NPO, Dr. Han aware. Spoke to social service technician. Per SW, patient is conserved and we can only get consent from a conservator. I spoke to Komal (number/office in [place]) and she gave consent for thoracentesis. Heparin has been held for procedure.
[2021-11-08 18:00] VITALS: BP 112/91
--- NOTE | 2021-11-08 18:46 | NUR ---
Problems reprioritized. Patient report given, questions answered & plan of care reviewed with Laureen KING.
--- NOTE | 2021-11-08 18:47 | NUR ---
Patient in room ORTHO 4009. I have received report from CHRISTINE Medina and had the opportunity to ask questions and assume patient care.
[2021-11-08] MEDS: levoFLOXACIN-Levaquin 500mg/D5 100 ML IV SCH (19:57)
[2021-11-08 22:00] VITALS: BP 113/89
[2021-11-09 02:00] VITALS: BP 111/75
[2021-11-09 06:00] VITALS: BP 109/67
--- NOTE | 2021-11-09 06:05 | NUR ---
Problems reprioritized. Patient report given, questions answered & plan of care reviewed with CHRISTINE Medina.
[2021-11-09] MEDS: metroNIDAZOLE-Flagyl 500mg/NS 100 ML IV SCH ×3 (07:01→23:55)
[2021-11-09] MEDS: dexamethasone 6 MG in D5W 100ml IV soln IV SCH (07:01)
[2021-11-09] MEDS: REMDESIVIR INJ 100 MG in normal saline 100ml IV soln 100 ML IV SCH (07:02)
[2021-11-09] MEDS: levetiracetam-NS 1000mg/100ml 100 ML IV SCH ×2 (07:02→19:56)
[2021-11-09] MEDS: docusate sod 100mg capsule PO SCH ×2 (07:10→19:02)
[2021-11-09] MEDS: baclofen 10mg tablet PO SCH ×2 (07:10→19:02)
[2021-11-09] MEDS: lactobacillus rhamnosus 10,000 MMU CELLS/CAPSULE PO SCH (07:10)
[2021-11-09] MEDS: divalproex sodium 500mg tablet.DR PO SCH ×2 (07:10→19:02)
[2021-11-09] MEDS: pantoprazole 40mg Tablet.DR PO SCH ×2 (07:12→19:02)
[2021-11-09] MEDS: gabapentin 300mg capsule PO SCH ×3 (07:12→19:02)
[2021-11-09] MEDS: ascorbic acid 500mg tablet PO SCH ×2 (07:12→19:03)
[2021-11-09] MEDS: LACOSAMIDE 50 MG TABLET PO SCH ×2 (07:12→19:03)
[2021-11-09 07:21] LABS: BASOPHILS % (AUTO) 0.5 % (0-1); EOSINOPHILS % (AUTO) 0.1 % (0-6); HEMATOCRIT 34.5 % (42.0-52.0); HEMOGLOBIN 11.5 g/dl (14.0-17.9); LYMPHOCYTES # (AUTO) 1.5 X10'3 (1.1-4.8); LYMPHOCYTES % (AUTO) 50.4 % (21-51); MEAN CORPUSCULAR HEMOGLOBIN 30.8 PG (27.0-31.0); MEAN CORPUSCULAR HGB CONC 33.3 g/dL (33.0-36.5); MEAN CORPUSCULAR VOLUME 92.7 FL (78-98); MEAN PLATELET VOLUME 9.7 FL (7.4-10.4); MONOCYTES # (AUTO) 0.4 X10'3 (0-0.9); MONOCYTES % (AUTO) 14.9 % (2-12); NEUTROPHILS % (AUTO) 34.1 % (42-75); PLATELET COUNT 215 X10'3 (140-440); RED BLOOD COUNT 3.72 X10'6 (4.70-6.10); RED CELL DISTRIBUTION WIDTH 15.5 % (11.5-14.5)
[2021-11-09 07:27] LABS: D-DIMER < 0.19 MG/L FEU (0-0.50)
[2021-11-09 07:59] LABS: ALANINE AMINOTRANSFERASE 35 U/L (12-78); ALBUMIN/GLOBULIN RATIO 0.8 (1.1-1.5); ALKALINE PHOSPHATASE 51 IU/L (46-116); ANION GAP 9 (8-16); ASPARTATE AMINO TRANSFERASE 114 U/L (10-37); BILIRUBIN,TOTAL 0.3 MG/DL (0.1-1.0); BLOOD UREA NITROGEN 10 MG/DL (7-18); BUN/CREATININE RATIO 23.3 (5.4-32.0); CALCIUM 7.8 MG/DL (8.5-10.1); CHLORIDE 105 MMOL/L (99-107); CREATININE 0.43 MG/DL (0.60-1.10); GLUCOSE 110 MG/DL (70-104); POTASSIUM 3.2 MMOL/L (3.5-5.1); SODIUM 141 MMOL/L (135-145); TOTAL CARBON DIOXIDE 27.3 MMOL/L (24-32); TOTAL PROTEIN 6.7 G/DL (6.4-8.2); eGFR > 90 ML/MIN
[2021-11-09] MEDS: heparin, porcine 5000 units/ml vial SQ SCH ×3 (08:00→23:57)
[2021-11-09] MEDS: K and/or MAG REPLACEMENT MC SCH ×3 (08:00→19:04)
[2021-11-09 09:05] LABS: PLATELET ESTIMATE NORMAL; SMUDGE CELLS 1+; TOTAL CELLS COUNTED 100
--- NOTE | 2021-11-09 09:20 | NUR ---
PAGER ID: [phone] MESSAGE: [id number]. Patient's potassium is 3.2. Can I put in orders for potassium replacement protocol? Carol KING [phone]
[2021-11-09] MEDS: morphine 2 MG/ML inj. syringe IV PRN ×2 (09:22→16:45)
[2021-11-09] MEDS ORDERED: magnesium 2GM in 50ml NS 50 ML IV PRN (09:30)
[2021-11-09] MEDS ORDERED: magnesium 4gm in 100ml NS 100 ML IV PRN (09:30)
[2021-11-09 10:00] VITALS: BP 152/124
[2021-11-09] MEDS: dextrose 5%-normal saline 1,000 ML IV SCH ×2 (11:45→19:56)
[2021-11-09] MEDS: potassium CL 10mEq/100ml bag 100 ML IV PRN ×3 (12:41→19:56)
[2021-11-09 15:00] VITALS: BP 111/68
--- NOTE | 2021-11-09 15:00 | NUR ---
Reassessment: Pt remains NPO per PAINT AND TABLE EDGER recs day 5 no nutrition pending discussion w/ conservator for PEG placement per DO note. Receiving D5/NS at 70ml/hr providing 286 kcals/day. Anatoly 10 w/ R elbow SDTI per WOC note. Receiving electrolyte replacement per protocol w/ PO meds held given NPO status per EMR. Copious BM 11/06 w/ initial fecal impaction per EMR. Will continue to monitor for nutrition support needs; TF recs below in case to start. Recommendations: 1) Given NPO 5 days for dysphagia consider enteral feeds to meet nutrition needs. Pending possible PEG pending conservator approval per DO note 2) IF PEG placement; Vital AF at 70ml/hr would provide 1680ml volume/day, 2016 kcals, 1361ml water, and 126g protein. 3) IF TF; additional water flush 125ml Q4H 4) IF TF; PALB Q / and daily wts 5) routine bowel care 6) Scaled wt this admit Addendum: 11/09/21 at [address] Amended: Links added.
--- NOTE | 2021-11-09 16:10 | NUR ---
Patient currently has no IV access. PICC team has been paged. I attempted to get line, second RN will attempt as well.
--- NOTE | 2021-11-09 18:26 | NUR ---
Problems reprioritized. Patient report given, questions answered & plan of care reviewed with Thierno KING.
[2021-11-09] MEDS: levoFLOXACIN-Levaquin 500mg/D5 100 ML IV SCH (19:58)
[2021-11-09 22:00] VITALS: BP 124/72
[2021-11-10 02:00] VITALS: BP 137/77
[2021-11-10] MEDS: morphine 2 MG/ML inj. syringe IV PRN (02:20)
[2021-11-10] MEDS: potassium CL 10mEq/100ml bag 100 ML IV PRN (05:40)
[2021-11-10 06:00] VITALS: BP 125/76
[2021-11-10] MEDS: dexamethasone 6 MG in D5W 100ml IV soln IV SCH (07:25)
[2021-11-10] MEDS: K and/or MAG REPLACEMENT MC SCH ×4 (08:00→20:00)
[2021-11-10] MEDS: divalproex sodium 500mg tablet.DR PO SCH ×2 (08:00→20:00)
[2021-11-10] MEDS: pantoprazole 40mg Tablet.DR PO SCH ×2 (08:00→20:00)
[2021-11-10] MEDS: LACOSAMIDE 50 MG TABLET PO SCH ×2 (08:00→20:00)
[2021-11-10] MEDS: baclofen 10mg tablet PO SCH ×2 (08:00→20:00)
[2021-11-10] MEDS: docusate sod 100mg capsule PO SCH ×2 (08:00→20:00)
[2021-11-10] MEDS: lactobacillus rhamnosus 10,000 MMU CELLS/CAPSULE PO SCH (08:00)
[2021-11-10] MEDS: gabapentin 300mg capsule PO SCH ×3 (08:00→20:41)
[2021-11-10] MEDS: ascorbic acid 500mg tablet PO SCH ×2 (08:00→20:00)
[2021-11-10] MEDS: metroNIDAZOLE-Flagyl 500mg/NS 100 ML IV SCH ×3 (08:08→23:50)
[2021-11-10 08:54] LABS: BASOPHILS % (AUTO) 0.4 % (0-1); EOSINOPHILS % (AUTO) 0 % (0-6); HEMATOCRIT 34.4 % (42.0-52.0); HEMOGLOBIN 11.6 g/dl (14.0-17.9); LYMPHOCYTES # (AUTO) 1.6 X10'3 (1.1-4.8); LYMPHOCYTES % (AUTO) 37.7 % (21-51); MEAN CORPUSCULAR HEMOGLOBIN 30.8 PG (27.0-31.0); MEAN CORPUSCULAR HGB CONC 33.7 g/dL (33.0-36.5); MEAN CORPUSCULAR VOLUME 91.7 FL (78-98); MEAN PLATELET VOLUME 9.8 FL (7.4-10.4); MONOCYTES # (AUTO) 0.6 X10'3 (0-0.9); MONOCYTES % (AUTO) 14.8 % (2-12); NEUTROPHILS % (AUTO) 47.1 % (42-75); PLATELET COUNT 222 X10'3 (140-440); RED BLOOD COUNT 3.76 X10'6 (4.70-6.10); RED CELL DISTRIBUTION WIDTH 15.3 % (11.5-14.5); WHITE BLOOD COUNT 4.3 X10'3 (4.5-11.0)
[2021-11-10 09:13] LABS: ALANINE AMINOTRANSFERASE 43 U/L (12-78); ALBUMIN 3.4 G/DL (3.4-5.0); ALBUMIN/GLOBULIN RATIO 1.1 (1.1-1.5); ALKALINE PHOSPHATASE 55 IU/L (46-116); ANION GAP 12 (8-16); ASPARTATE AMINO TRANSFERASE 97 U/L (10-37); BILIRUBIN,TOTAL 0.4 MG/DL (0.1-1.0); BLOOD UREA NITROGEN 13 MG/DL (7-18); BUN/CREATININE RATIO 28.9 (5.4-32.0); C-REACTIVE PROTEIN 2.05 MG/DL (0.0-0.5); CALCIUM 8.3 MG/DL (8.5-10.1); CHLORIDE 104 MMOL/L (99-107); CREATININE 0.45 MG/DL (0.60-1.10); GLUCOSE 96 MG/DL (70-104); POTASSIUM 3.5 MMOL/L (3.5-5.1); SODIUM 141 MMOL/L (135-145); TOTAL CARBON DIOXIDE 25.2 MMOL/L (24-32); TOTAL PROTEIN 6.6 G/DL (6.4-8.2); eGFR > 90 ML/MIN
[2021-11-10] MEDS: levetiracetam-NS 1000mg/100ml 100 ML IV SCH ×2 (09:32→20:46)
[2021-11-10] MEDS: REMDESIVIR INJ 100 MG in normal saline 100ml IV soln 100 ML IV SCH (09:33)
[2021-11-10] MEDS: heparin, porcine 5000 units/ml vial SQ SCH ×3 (09:36→23:50)
[2021-11-10 09:48] LABS: D-DIMER < 0.19 MG/L FEU (0-0.50)
[2021-11-10 10:00] VITALS: BP 120/62
[2021-11-10] MEDS: dextrose 5%-normal saline 1,000 ML IV SCH (16:36)
[2021-11-10 18:00] VITALS: BP 122/81
[2021-11-10] MEDS: levoFLOXACIN-Levaquin 500mg/D5 100 ML IV SCH (20:46)
[2021-11-10 22:00] VITALS: BP 126/48
[2021-11-10] MEDS ORDERED: diatr meglu/diatrizoate 30ml oral sol.-(3 dose) bottle NG ONE (22:00)
[2021-11-11 02:00] VITALS: BP 130/87
[2021-11-11 06:00] VITALS: BP 132/83
--- NOTE | 2021-11-11 06:36 | NUR ---
Patient in room ORTHO 4009B. I have received report from CHRISTINE CURRY and had the opportunity to ask questions and assume patient care.
[2021-11-11 07:37] LABS: D-DIMER < 0.19 MG/L FEU (0-0.50)
[2021-11-11] MEDS: levetiracetam-NS 1000mg/100ml 100 ML IV SCH ×2 (07:52→20:38)
[2021-11-11] MEDS: K and/or MAG REPLACEMENT MC SCH ×4 (08:00→20:00)
[2021-11-11] MEDS: gabapentin 300mg capsule PO SCH ×3 (08:00→20:33)
[2021-11-11] MEDS: baclofen 10mg tablet PO SCH ×2 (08:00→20:00)
[2021-11-11] MEDS: LACOSAMIDE 50 MG TABLET PO SCH ×2 (08:00→20:00)
[2021-11-11] MEDS: lactobacillus rhamnosus 10,000 MMU CELLS/CAPSULE PO SCH (08:00)
[2021-11-11] MEDS: docusate sod 100mg capsule PO SCH ×2 (08:00→20:00)
[2021-11-11] MEDS: pantoprazole 40mg Tablet.DR PO SCH ×2 (08:00→20:00)
[2021-11-11] MEDS: divalproex sodium 500mg tablet.DR PO SCH ×2 (08:00→20:00)
[2021-11-11] MEDS: ascorbic acid 500mg tablet PO SCH ×2 (08:00→20:00)
[2021-11-11 08:01] LABS: C-REACTIVE PROTEIN 1.36 MG/DL (0.0-0.5); MAGNESIUM 2.1 MG/DL (1.5-2.4)
[2021-11-11] MEDS: dexamethasone 6 MG in D5W 100ml IV soln IV SCH (08:35)
[2021-11-11] MEDS: metroNIDAZOLE-Flagyl 500mg/NS 100 ML IV SCH ×2 (09:00→16:59)
[2021-11-11] MEDS: REMDESIVIR INJ 100 MG in normal saline 100ml IV soln 100 ML IV SCH (09:12)
[2021-11-11] MEDS: dextrose 5%-normal saline 1,000 ML IV SCH ×2 (09:12→20:40)
[2021-11-11] MEDS: heparin, porcine 5000 units/ml vial SQ SCH ×3 (09:13→16:59)
[2021-11-11 10:00] VITALS: BP 124/73
--- NOTE | 2021-11-11 17:59 | NUR ---
CORPAK PLACED L NARE, NO COMPLICATIONS. KUB ORDERED FOR PLACEMENT. RESTRAINTS ORDERED BECAUSE PT KEEPS TRYING TO PULL OUT CORPAK. WILL CONTINUE TO MONITOR.
--- NOTE | 2021-11-11 17:59 | NUR ---
Page Sent PAGER ID: [phone] MESSAGE: CAMILO [phone]-RE: [id number] BRIGIDO FORD...I PLACED CORPAK..CAN I GET AN ORDER FOR RESTRAINTS , PT KEEPS TRYING TO PULL OUT CORPAK, THANK YOU
[2021-11-11 18:00] VITALS: BP 101/59
[2021-11-11] MEDS: levoFLOXACIN-Levaquin 500mg/D5 100 ML IV SCH (20:38)
[2021-11-11 22:00] VITALS: BP 115/94
[2021-11-11] MEDS ORDERED: diatr meglu/diatrizoate 30ml oral sol.-(3 dose) bottle NG ONE (22:00)
--- NOTE | 2021-11-11 22:27 | NUR ---
Corpak placement verified by radiology. Will administer Gastrografin, pharmacy reiterated no special instructions to administer.
--- NOTE | 2021-11-11 22:29 | NUR ---
Telemetry advised patient is occasionally estrella, it doesn't sustain, checked on patient he is in the 60's/70's, will continue to monitor.
[2021-11-12] MEDS: metroNIDAZOLE-Flagyl 500mg/NS 100 ML IV SCH ×3 (00:35→16:00)
[2021-11-12] MEDS: heparin, porcine 5000 units/ml vial SQ SCH ×3 (00:37→16:00)
[2021-11-12 02:00] VITALS: BP 130/87
[2021-11-12 06:00] VITALS: BP 119/72
[2021-11-12] MEDS: gabapentin 300mg capsule PO SCH ×3 (08:00→21:00)
[2021-11-12] MEDS: docusate sod 100mg capsule PO SCH ×2 (08:00→21:00)
[2021-11-12] MEDS: K and/or MAG REPLACEMENT MC SCH ×4 (08:00→22:41)
[2021-11-12 08:55] LABS: EOSINOPHILS % (AUTO) 0.2 % (0-6); HEMATOCRIT 34.4 % (42.0-52.0); HEMOGLOBIN 11.7 g/dl (14.0-17.9); LYMPHOCYTES % (AUTO) 45.6 % (21-51); MEAN CORPUSCULAR HEMOGLOBIN 30.9 PG (27.0-31.0); MEAN CORPUSCULAR HGB CONC 34.1 g/dL (33.0-36.5); MEAN CORPUSCULAR VOLUME 90.8 FL (78-98); MEAN PLATELET VOLUME 9.9 FL (7.4-10.4); MONOCYTES # (AUTO) 0.7 X10'3 (0-0.9); NEUTROPHILS # (AUTO) 1.6 X10'3 (1.8-7.7); NEUTROPHILS % (AUTO) 36.2 % (42-75); PLATELET COUNT 286 X10'3 (140-440); RED BLOOD COUNT 3.79 X10'6 (4.70-6.10); RED CELL DISTRIBUTION WIDTH 15.4 % (11.5-14.5); WHITE BLOOD COUNT 4.4 X10'3 (4.5-11.0)
[2021-11-12] MEDS: levetiracetam-NS 1000mg/100ml 100 ML IV SCH ×2 (08:58→22:08)
[2021-11-12] MEDS: dexamethasone 6 MG in D5W 100ml IV soln IV SCH ×2 (08:59→09:04)
[2021-11-12] MEDS: pantoprazole 40mg Tablet.DR PO SCH ×2 (09:03→21:00)
[2021-11-12] MEDS: lactobacillus rhamnosus 10,000 MMU CELLS/CAPSULE PO SCH (09:04)
[2021-11-12] MEDS: divalproex sodium 500mg tablet.DR PO SCH ×2 (09:04→21:00)
[2021-11-12] MEDS: LACOSAMIDE 50 MG TABLET PO SCH ×2 (09:04→21:00)
[2021-11-12] MEDS: baclofen 10mg tablet PO SCH ×2 (09:04→21:00)
[2021-11-12] MEDS: ascorbic acid 500mg tablet PO SCH ×2 (09:04→21:00)
[2021-11-12 09:07] LABS: D-DIMER 0.22 MG/L FEU (0-0.50)
[2021-11-12 09:09] LABS: ALANINE AMINOTRANSFERASE 39 U/L (12-78); ALBUMIN 3.4 G/DL (3.4-5.0); ALBUMIN/GLOBULIN RATIO 1.1 (1.1-1.5); ALKALINE PHOSPHATASE 51 IU/L (46-116); ANION GAP 9 (8-16); ASPARTATE AMINO TRANSFERASE 45 U/L (10-37); BILIRUBIN,TOTAL 0.3 MG/DL (0.1-1.0); BLOOD UREA NITROGEN 8 MG/DL (7-18); C-REACTIVE PROTEIN 0.91 MG/DL (0.0-0.5); CALCIUM 8.6 MG/DL (8.5-10.1); CHLORIDE 102 MMOL/L (99-107); GLUCOSE 112 MG/DL (70-104); POTASSIUM 3.1 MMOL/L (3.5-5.1); SODIUM 141 MMOL/L (135-145); TOTAL CARBON DIOXIDE 29.8 MMOL/L (24-32); TOTAL PROTEIN 6.5 G/DL (6.4-8.2); eGFR > 90 ML/MIN
[2021-11-12 10:00] VITALS: BP 133/79
[2021-11-12] MEDS: dextrose 5%-normal saline 1,000 ML IV SCH (11:15)
[2021-11-12] MEDS ORDERED: magnesium Cl slow-release 64mg tablet PO PRN (12:50)
[2021-11-12] MEDS ORDERED: potassium Cl 20 mEq SR tablet PO PRN (12:50)
[2021-11-12] MEDS ORDERED: magnesium 2GM in 50ml NS 50 ML IV PRN (12:50)
[2021-11-12] MEDS ORDERED: magnesium 4gm in 100ml NS 100 ML IV PRN (12:50)
[2021-11-12] MEDS: potassium CL 10mEq/100ml bag 100 ML IV PRN ×3 (15:00→22:41)
--- NOTE | 2021-11-12 15:27 | NUR ---
TF Consult: Pt remains NPO receiving meds via corpak pending G-tube placement today per EMR. TF recs below given pt estimated needs pending scaled wt this admit. Currently on D5/NS at 70ml/hr providing 286 kcals/day likely to wean w/ EN advancement. Given 7 days no nutrition w/ severe weakness pt meets minimum severe malnutrition criteria; MD notified. LBM 11/10. Will continue to monitor for TF tolerance and further adjustment needs this admit. Recommendations: 1) G-tube feeds per MD using Vital AF at 70ml/hr would provide 1680ml volume/day, 2016 kcals, 1361ml water, and 126g protein. 2) additional water flush 125ml Q4H 3) PALB Q /; daily scaled wts 4) Monitor for TF tolerance and adjustment needs pending scaled wt this admit; high chance of refeeding given 7 days prior NPO status 5) routine bowel care 6) Scaled wt this admit Addendum: 11/12/21 at [address] Amended: Links added.
[2021-11-12 22:00] VITALS: BP 106/62
[2021-11-12] MEDS: levoFLOXACIN-Levaquin 500mg/D5 100 ML IV SCH (22:33)
--- NOTE | 2021-11-12 23:00 | NUR ---
Pt NGT does not flush and pt has multiple po meds ordered. He is pending Gtube placement (date & time unknown). I messaged Dr. Burton regarding the same to see which meds could be switched to IV. Dr. Burton recommended I speak with the pharmacist regarding switching meds to IV. I spoke with the pharmacist who inquired as to when it is anticipated for pt to get the Gtube, as switching from p.o. to IV meds and then back to po may not provide the therapeutic benefit, if pt will only miss a couple doses. I notified the pharmacist that I did not know the pt's surgery date/time and contacted Dr. Burton regarding the same. Dr. Burton already spoke with the pharmacist and gave instructions to change meds to IV. I did observe the pt have a mild seizure (eyes rolled back and he had generalized mild tonic/clonic movements) which lasted about 5 seconds. The sitter in the room also stated she observed him have similar episodes 2-3 times since the start of the shift. I notified Dr. Burton of the same, which she said pt's IV seizure medicines should suffice
[2021-11-13] MEDS: heparin, porcine 5000 units/ml vial SQ SCH ×3 (00:21→16:41)
[2021-11-13] MEDS: metroNIDAZOLE-Flagyl 500mg/NS 100 ML IV SCH ×3 (00:21→16:40)
[2021-11-13] MEDS: LACOSAMIDE 200mg/20ml inj. 200 MG in normal saline 100ml IV soln 100 ML IV SCH ×3 (00:55→20:26)
[2021-11-13 02:00] VITALS: BP 107/60
[2021-11-13] MEDS: potassium CL 10mEq/100ml bag 100 ML IV PRN (02:04)
[2021-11-13] MEDS: pantoprazole 40MG/NS 100ML BAG 100 ML IV SCH ×3 (02:04→20:25)
[2021-11-13] MEDS: K and/or MAG REPLACEMENT MC SCH ×7 (02:11→20:00)
[2021-11-13] MEDS: WATER IV SCH ×4 (03:21→20:26)
[2021-11-13] MEDS: DEXTROSE 5% IV SCH ×4 (03:21→20:26)
[2021-11-13] MEDS: VALPROATE SOD IV SCH ×4 (03:21→20:26)
[2021-11-13] MEDS: dextrose 5%-normal saline 1,000 ML IV SCH ×2 (05:50→15:51)
[2021-11-13 06:00] VITALS: BP 107/65
--- NOTE | 2021-11-13 06:43 | NUR ---
Change of shift report given to Madai KING Addendum: 11/13/21 at 0643 by Jolene Thomas RN Amended: Links added.
--- NOTE | 2021-11-13 06:45 | NUR ---
Patient in room ORTHO 4009. I have received report from CHARLI Fernández and had the opportunity to ask questions and assume patient care.
[2021-11-13] MEDS: lactobacillus rhamnosus 10,000 MMU CELLS/CAPSULE PO SCH (07:38)
[2021-11-13] MEDS: docusate sod 100mg capsule PO SCH ×2 (07:38→20:00)
[2021-11-13] MEDS: gabapentin 300mg capsule PO SCH ×3 (07:39→20:28)
[2021-11-13] MEDS: ascorbic acid 500mg tablet PO SCH ×2 (07:39→20:00)
[2021-11-13] MEDS: baclofen 10mg tablet PO SCH ×2 (07:39→20:00)
[2021-11-13] MEDS: dexamethasone 6 MG in D5W 100ml IV soln IV SCH (07:42)
[2021-11-13] MEDS: levetiracetam-NS 1000mg/100ml 100 ML IV SCH ×2 (08:10→20:26)
[2021-11-13 11:00] VITALS: BP 135/88
[2021-11-13 14:40] LABS: EOSINOPHILS % (AUTO) 0.1 % (0-6)
[2021-11-13 14:41] LABS: D-DIMER < 0.19 MG/L FEU (0-0.50)
[2021-11-13 14:42] LABS: BASOPHILS % (AUTO) 0.9 % (0-1); HEMATOCRIT 37.4 % (42.0-52.0); HEMOGLOBIN 12.5 g/dl (14.0-17.9); LYMPHOCYTES # (AUTO) 0.7 X10'3 (1.1-4.8); LYMPHOCYTES % (AUTO) 25.9 % (21-51); MEAN CORPUSCULAR HEMOGLOBIN 30.9 PG (27.0-31.0); MEAN CORPUSCULAR HGB CONC 33.4 g/dL (33.0-36.5); MEAN CORPUSCULAR VOLUME 92.3 FL (78-98); MEAN PLATELET VOLUME 9.7 FL (7.4-10.4); MONOCYTES # (AUTO) 0.2 X10'3 (0-0.9); MONOCYTES % (AUTO) 7.5 % (2-12); NEUTROPHILS # (AUTO) 1.9 X10'3 (1.8-7.7); NEUTROPHILS % (AUTO) 65.6 % (42-75); PLATELET COUNT 306 X10'3 (140-440); RED BLOOD COUNT 4.05 X10'6 (4.70-6.10); RED CELL DISTRIBUTION WIDTH 15.2 % (11.5-14.5); WHITE BLOOD COUNT 2.8 X10'3 (4.5-11.0)
[2021-11-13 14:51] LABS: PLATELET ESTIMATE NORMAL; TOTAL CELLS COUNTED 100
[2021-11-13 14:52] LABS: BURR CELLS 1+; SCHISTOCYTES FEW
[2021-11-13 15:00] VITALS: BP 108/58
[2021-11-13 18:00] VITALS: BP 111/71
--- NOTE | 2021-11-13 18:40 | NUR ---
Problems reprioritized. Patient report given, questions answered & plan of care reviewed with CHRISTINE Avitia
[2021-11-13] MEDS: levoFLOXACIN-Levaquin 500mg/D5 100 ML IV SCH (20:26)
[2021-11-13 22:00] VITALS: BP 104/65
[2021-11-14] MEDS: metroNIDAZOLE-Flagyl 500mg/NS 100 ML IV SCH ×3 (00:25→15:53)
[2021-11-14] MEDS: heparin, porcine 5000 units/ml vial SQ SCH ×3 (00:26→15:53)
[2021-11-14 02:00] VITALS: BP 116/80
[2021-11-14] MEDS: VALPROATE SOD IV SCH ×4 (02:16→19:59)
[2021-11-14] MEDS: WATER IV SCH ×4 (02:16→19:59)
[2021-11-14] MEDS: DEXTROSE 5% IV SCH ×4 (02:16→19:59)
[2021-11-14 06:00] VITALS: BP 119/67
[2021-11-14] MEDS: dextrose 5%-normal saline 1,000 ML IV SCH ×2 (06:31→17:23)
[2021-11-14] MEDS: lactobacillus rhamnosus 10,000 MMU CELLS/CAPSULE PO SCH (07:03)
[2021-11-14] MEDS: baclofen 10mg tablet PO SCH ×2 (07:03→19:56)
[2021-11-14] MEDS: ascorbic acid 500mg tablet PO SCH ×2 (07:03→19:56)
[2021-11-14] MEDS: K and/or MAG REPLACEMENT MC SCH ×5 (07:04→19:55)
[2021-11-14] MEDS: gabapentin 300mg capsule PO SCH ×3 (07:04→19:56)
[2021-11-14] MEDS: pantoprazole 40MG/NS 100ML BAG 100 ML IV SCH ×2 (07:18→19:58)
[2021-11-14] MEDS: dexamethasone 6 MG in D5W 100ml IV soln IV SCH (07:18)
[2021-11-14] MEDS: docusate sod 100mg capsule PO SCH ×2 (07:35→19:55)
[2021-11-14 08:09] LABS: BASOPHILS % (AUTO) 0.4 % (0-1); EOSINOPHILS % (AUTO) 0.1 % (0-6); HEMATOCRIT 36.2 % (42.0-52.0); HEMOGLOBIN 12.2 g/dl (14.0-17.9); LYMPHOCYTES # (AUTO) 2.3 X10'3 (1.1-4.8); LYMPHOCYTES % (AUTO) 42.6 % (21-51); MEAN CORPUSCULAR HGB CONC 33.6 g/dL (33.0-36.5); MEAN CORPUSCULAR VOLUME 92.3 FL (78-98); MEAN PLATELET VOLUME 10.2 FL (7.4-10.4); MONOCYTES # (AUTO) 0.8 X10'3 (0-0.9); MONOCYTES % (AUTO) 13.9 % (2-12); NEUTROPHILS # (AUTO) 2.4 X10'3 (1.8-7.7); PLATELET COUNT 318 X10'3 (140-440); RED BLOOD COUNT 3.92 X10'6 (4.70-6.10); RED CELL DISTRIBUTION WIDTH 15.4 % (11.5-14.5); WHITE BLOOD COUNT 5.5 X10'3 (4.5-11.0)
[2021-11-14 08:26] LABS: D-DIMER 0.29 MG/L FEU (0-0.50)
[2021-11-14 08:39] LABS: ALANINE AMINOTRANSFERASE 27 U/L (12-78); ALBUMIN/GLOBULIN RATIO 0.9 (1.1-1.5); ALKALINE PHOSPHATASE 44 IU/L (46-116); ANION GAP 8 (8-16); ASPARTATE AMINO TRANSFERASE 15 U/L (10-37); BILIRUBIN,TOTAL 0.3 MG/DL (0.1-1.0); BLOOD UREA NITROGEN 6 MG/DL (7-18); BUN/CREATININE RATIO 17.1 (5.4-32.0); C-REACTIVE PROTEIN 0.33 MG/DL (0.0-0.5); CALCIUM 8.1 MG/DL (8.5-10.1); CHLORIDE 106 MMOL/L (99-107); CREATININE 0.35 MG/DL (0.60-1.10); GLUCOSE 117 MG/DL (70-104); POTASSIUM 3.4 MMOL/L (3.5-5.1); SODIUM 143 MMOL/L (135-145); TOTAL CARBON DIOXIDE 29.5 MMOL/L (24-32); TOTAL PROTEIN 6.2 G/DL (6.4-8.2); eGFR > 90 ML/MIN
[2021-11-14 10:00] VITALS: BP 109/74
[2021-11-14] MEDS: LACOSAMIDE 200mg/20ml inj. 200 MG in normal saline 100ml IV soln 100 ML IV SCH ×2 (10:03→19:58)
[2021-11-14] MEDS: levetiracetam-NS 1000mg/100ml 100 ML IV SCH ×2 (11:04→19:59)
--- NOTE | 2021-11-14 15:02 | NUR ---
Called conservator x2 different numbers, no answer. Messages were left for Komal at [facility].
[2021-11-14 18:00] VITALS: BP 115/78
[2021-11-14] MEDS: levoFLOXACIN-Levaquin 500mg/D5 100 ML IV SCH (19:58)
[2021-11-14 22:00] VITALS: BP 108/81
[2021-11-15] MEDS: metroNIDAZOLE-Flagyl 500mg/NS 100 ML IV SCH (00:15)
[2021-11-15] MEDS: heparin, porcine 5000 units/ml vial SQ SCH ×3 (00:16→16:00)
[2021-11-15 02:00] VITALS: BP 110/71
[2021-11-15] MEDS: VALPROATE SOD IV SCH ×4 (02:31→21:50)
[2021-11-15] MEDS: DEXTROSE 5% IV SCH ×4 (02:31→21:50)
[2021-11-15] MEDS: WATER IV SCH ×4 (02:31→21:50)
[2021-11-15 06:00] VITALS: BP 123/78
--- NOTE | 2021-11-15 06:55 | NUR ---
Problems reprioritized. Patient report given, questions answered & plan of care reviewed with CHIRSTINE Gupta.
[2021-11-15 07:52] LABS: BASOPHILS % (AUTO) 0.4 % (0-1); EOSINOPHILS % (AUTO) 0.1 % (0-6); HEMATOCRIT 35.9 % (42.0-52.0); LYMPHOCYTES # (AUTO) 2.2 X10'3 (1.1-4.8); LYMPHOCYTES % (AUTO) 34.1 % (21-51); MEAN CORPUSCULAR HGB CONC 33.4 g/dL (33.0-36.5); MEAN CORPUSCULAR VOLUME 92.9 FL (78-98); MEAN PLATELET VOLUME 10.6 FL (7.4-10.4); MONOCYTES # (AUTO) 0.7 X10'3 (0-0.9); MONOCYTES % (AUTO) 10.8 % (2-12); NEUTROPHILS # (AUTO) 3.5 X10'3 (1.8-7.7); NEUTROPHILS % (AUTO) 54.6 % (42-75); PLATELET COUNT 315 X10'3 (140-440); RED BLOOD COUNT 3.86 X10'6 (4.70-6.10); RED CELL DISTRIBUTION WIDTH 15.7 % (11.5-14.5); WHITE BLOOD COUNT 6.4 X10'3 (4.5-11.0)
[2021-11-15] MEDS: docusate sod 100mg capsule PO SCH ×2 (08:00→20:00)
[2021-11-15] MEDS: gabapentin 300mg capsule PO SCH ×3 (08:00→21:00)
[2021-11-15] MEDS: K and/or MAG REPLACEMENT MC SCH ×2 (08:00→20:00)
[2021-11-15] MEDS: lactobacillus rhamnosus 10,000 MMU CELLS/CAPSULE PO SCH (08:00)
[2021-11-15] MEDS: ascorbic acid 500mg tablet PO SCH ×2 (08:00→20:00)
[2021-11-15] MEDS: baclofen 10mg tablet PO SCH ×2 (08:00→20:00)
[2021-11-15 08:49] LABS: D-DIMER 0.21 MG/L FEU (0-0.50)
[2021-11-15 09:18] LABS: PLATELET ESTIMATE NORMAL
[2021-11-15 09:19] LABS: BURR CELLS 2+; ELLIPTOCYTES FEW; LARGE PLATELETS FEW
--- NOTE | 2021-11-15 09:42 | NUR ---
Called Dr. Dudley regarding conservators contact information, Deborah KING answered phone, number provided to her to get telephone consent as patient is conserved through [facility] guardian. Conservator Komal #[phone]
[2021-11-15 10:00] VITALS: BP 107/65
[2021-11-15] MEDS: LACOSAMIDE 200mg/20ml inj. 200 MG in normal saline 100ml IV soln 100 ML IV SCH ×2 (10:39→20:31)
[2021-11-15 10:57] LABS: ALANINE AMINOTRANSFERASE 23 U/L (12-78); ALBUMIN 3.1 G/DL (3.4-5.0); ALKALINE PHOSPHATASE 45 IU/L (46-116); ANION GAP 9 (8-16); ASPARTATE AMINO TRANSFERASE 8 U/L (10-37); BILIRUBIN,TOTAL 0.3 MG/DL (0.1-1.0); BLOOD UREA NITROGEN 5 MG/DL (7-18); BUN/CREATININE RATIO 13.5 (5.4-32.0); C-REACTIVE PROTEIN 0.21 MG/DL (0.0-0.5); CALCIUM 8.8 MG/DL (8.5-10.1); CHLORIDE 105 MMOL/L (99-107); CREATININE 0.37 MG/DL (0.60-1.10); GLUCOSE 96 MG/DL (70-104); POTASSIUM 3.3 MMOL/L (3.5-5.1); PREALBUMIN 24.2 MG/DL (19-36); SODIUM 142 MMOL/L (135-145); TOTAL CARBON DIOXIDE 28.2 MMOL/L (24-32); TOTAL PROTEIN 6.2 G/DL (6.4-8.2); eGFR > 90 ML/MIN
[2021-11-15] MEDS: pantoprazole 40MG/NS 100ML BAG 100 ML IV SCH ×2 (11:14→22:36)
[2021-11-15] MEDS: levetiracetam-NS 1000mg/100ml 100 ML IV SCH ×2 (12:15→21:51)
[2021-11-15] MEDS: dextrose 5%-normal saline 1,000 ML IV SCH (12:23)
--- NOTE | 2021-11-15 13:36 | NUR ---
F/u 11/15: Pt remains NPO w/ PEG placement happening today per RN/EMR. LBM 11/06 copious though has remained NPO 10 days this admit likely impacting GI trends. Pt remains on D5/NS at 70ml/hr providing 286 kcals/day per EMR. Will continue to monitor for TF tolerance and adjustment. Recommendations: 1) PEG feeds per MD using Vital AF at 70ml/hr would provide 1680ml volume/day, 2016 kcals, 1361ml water, and 126g protein. 2) additional water flush 125ml Q4H 3) PALB Q /; daily scaled wts 4) Monitor for TF tolerance and adjustment needs pending scaled wt this admit; high chance of refeeding given 7 days prior NPO status 5) routine bowel care 6) Scaled wt this admit Addendum: 11/15/21 at [address] Amended: Links added.
[2021-11-15] MEDS: potassium CL 10mEq/100ml bag 100 ML IV PRN ×2 (14:08→16:22)
--- NOTE | 2021-11-15 17:45 | NUR ---
Mr Carney has been assessed as indicated. he remains non verbal and has no s/s of distress or discomfort. he has stan repositioned as much as his contractions allow for. He has had a large BM and the lindsay continues to drain cleat yellow urine. Potassium was low and was replaced this shitt. The replacement process continues at this time. He has no s/s of distress or discomfort. No cough or SOB has been noted. The plan for PEG placement has been delayed. His conservator was contacted and consent was obtained. The form is in the OR nurses station per Shaniqua the relief charge nurse. The delay is related to interoperative code status and will be clarified by the conservator. Shaniqua also states that the MD's progess note detailing the conservator conversation is also in the OR nurses station.
[2021-11-15 18:00] VITALS: BP 110/63
--- NOTE | 2021-11-15 18:47 | NUR ---
Problems reprioritized. Patient report given, questions answered & plan of care reviewed with MARVIN.
[2021-11-15 22:00] VITALS: BP 135/80
[2021-11-16] MEDS: potassium CL 10mEq/100ml bag 100 ML IV PRN ×2 (00:24→03:07)
[2021-11-16] MEDS: dextrose 5%-normal saline 1,000 ML IV SCH ×2 (00:27→15:09)
[2021-11-16 02:00] VITALS: BP 125/87
[2021-11-16] MEDS: VALPROATE SOD IV SCH ×4 (03:07→21:12)
[2021-11-16] MEDS: DEXTROSE 5% IV SCH ×4 (03:07→21:12)
[2021-11-16] MEDS: WATER IV SCH ×4 (03:07→21:12)
[2021-11-16 06:00] VITALS: BP 126/74
[2021-11-16 07:44] LABS: HEMOGLOBIN 14.3 g/dl (14.0-17.9); MEAN PLATELET VOLUME 10.3 FL (7.4-10.4); RED BLOOD COUNT 4.57 X10'6 (4.70-6.10)
[2021-11-16] MEDS: lactobacillus rhamnosus 10,000 MMU CELLS/CAPSULE PO SCH (08:00)
[2021-11-16] MEDS: baclofen 10mg tablet PO SCH ×2 (08:00→20:00)
[2021-11-16] MEDS: gabapentin 300mg capsule PO SCH ×3 (08:00→21:00)
[2021-11-16] MEDS: docusate sod 100mg capsule PO SCH ×2 (08:00→20:00)
[2021-11-16] MEDS: K and/or MAG REPLACEMENT MC SCH ×2 (08:00→20:00)
[2021-11-16] MEDS: ascorbic acid 500mg tablet PO SCH ×2 (08:00→20:00)
[2021-11-16] MEDS: levetiracetam-NS 1000mg/100ml 100 ML IV SCH ×2 (08:10→22:12)
[2021-11-16] MEDS: pantoprazole 40MG/NS 100ML BAG 100 ML IV SCH ×2 (08:10→22:18)
[2021-11-16 08:11] LABS: ALANINE AMINOTRANSFERASE 24 U/L (12-78); ALBUMIN 3.5 G/DL (3.4-5.0); ALKALINE PHOSPHATASE 51 IU/L (46-116); ANION GAP 11 (8-16); ASPARTATE AMINO TRANSFERASE 16 U/L (10-37); BILIRUBIN,TOTAL 0.4 MG/DL (0.1-1.0); BLOOD UREA NITROGEN 3 MG/DL (7-18); BUN/CREATININE RATIO 11.5 (5.4-32.0); C-REACTIVE PROTEIN 0.31 MG/DL (0.0-0.5); CALCIUM 8.9 MG/DL (8.5-10.1); CHLORIDE 102 MMOL/L (99-107); CREATININE 0.26 MG/DL (0.60-1.10); GLUCOSE 109 MG/DL (70-104); SODIUM 141 MMOL/L (135-145); TOTAL CARBON DIOXIDE 28.2 MMOL/L (24-32); TOTAL PROTEIN 7.1 G/DL (6.4-8.2); eGFR > 90 ML/MIN
[2021-11-16] MEDS: heparin, porcine 5000 units/ml vial SQ SCH ×3 (08:12→15:08)
[2021-11-16 08:25] LABS: BASOPHILS # (AUTO) 0.1 X10'3 (0-0.2); BASOPHILS % (AUTO) 0.8 % (0-1); EOSINOPHILS % (AUTO) 0.4 % (0-6); HEMATOCRIT 42.6 % (42.0-52.0); LYMPHOCYTES # (AUTO) 2.3 X10'3 (1.1-4.8); MEAN CORPUSCULAR HEMOGLOBIN 31.2 PG (27.0-31.0); MEAN CORPUSCULAR HGB CONC 33.5 g/dL (33.0-36.5); MEAN CORPUSCULAR VOLUME 93.1 FL (78-98); MONOCYTES % (AUTO) 11.4 % (2-12); NEUTROPHILS # (AUTO) 5.2 X10'3 (1.8-7.7); NEUTROPHILS % (AUTO) 60.4 % (42-75); PLATELET COUNT 300 X10'3 (140-440); POTASSIUM 3.5 MMOL/L (3.5-5.1); RED CELL DISTRIBUTION WIDTH 16.1 % (11.5-14.5); WHITE BLOOD COUNT 8.6 X10'3 (4.5-11.0)
[2021-11-16] MEDS: LACOSAMIDE 200mg/20ml inj. 200 MG in normal saline 100ml IV soln 100 ML IV SCH ×2 (09:18→19:33)
[2021-11-16 09:49] LABS: D-DIMER 0.27 MG/L FEU (0-0.50)
[2021-11-16 10:00] VITALS: BP 127/88
--- NOTE | 2021-11-16 11:18 | NUR ---
I spoke with guardian conservator Komal Matute and she spoke with her oil well services field supervisor and agreed to change patient to DNR, I had RN Frederick verify this with me via telephone consent. Also, conservator would still like to proceed with surgery.
--- NOTE | 2021-11-16 11:25 | NUR ---
PAGER ID: [phone] MESSAGE: NATALIYA HOLT REGARDING PATIENT [address] BRIGIDO FORD THE CONSERVOR EVELIN CLARK NOTIFIED TO CHANGE THE CODE STATUS TO DNR AND CONTINUE WITH THE PLAN TO INSERT THE PEG TUBE. AKUA RN #[id number] tHANKS!
[2021-11-16 14:00] VITALS: BP 120/82
[2021-11-16 18:00] VITALS: BP 123/78
[2021-11-16 22:00] VITALS: BP 134/92
[2021-11-17] MEDS: heparin, porcine 5000 units/ml vial SQ SCH ×2 (00:31→08:40)
[2021-11-17 02:00] VITALS: BP 116/69
[2021-11-17] MEDS: WATER IV SCH ×4 (02:44→20:11)
[2021-11-17] MEDS: VALPROATE SOD IV SCH ×4 (02:44→20:11)
[2021-11-17] MEDS: DEXTROSE 5% IV SCH ×4 (02:44→20:11)
[2021-11-17] MEDS: dextrose 5%-normal saline 1,000 ML IV SCH ×2 (05:38→19:05)
[2021-11-17 06:00] VITALS: BP 144/97
[2021-11-17] MEDS: ascorbic acid 500mg tablet PO SCH ×2 (08:00→18:39)
[2021-11-17] MEDS: docusate sod 100mg capsule PO SCH ×2 (08:00→18:39)
[2021-11-17] MEDS: lactobacillus rhamnosus 10,000 MMU CELLS/CAPSULE PO SCH ×2 (08:00→18:38)
[2021-11-17] MEDS: baclofen 10mg tablet PO SCH ×2 (08:00→18:38)
[2021-11-17] MEDS: K and/or MAG REPLACEMENT MC SCH ×2 (08:00→18:40)
[2021-11-17] MEDS: gabapentin 300mg capsule PO SCH ×3 (08:00→18:38)
[2021-11-17] MEDS: LACOSAMIDE 200mg/20ml inj. 200 MG in normal saline 100ml IV soln 100 ML IV SCH ×2 (08:34→19:45)
[2021-11-17] MEDS: pantoprazole 40MG/NS 100ML BAG 100 ML IV SCH ×2 (08:39→19:05)
[2021-11-17] MEDS: levetiracetam-NS 1000mg/100ml 100 ML IV SCH ×2 (09:13→19:06)
[2021-11-17 09:34] LABS: D-DIMER 0.32 MG/L FEU (0-0.50)
[2021-11-17 10:00] VITALS: BP 141/99
[2021-11-17 22:00] VITALS: BP 128/96
[2021-11-18 02:00] VITALS: BP 113/74
[2021-11-18] MEDS: heparin, porcine 5000 units/ml vial SQ SCH ×3 (04:29→16:27)
[2021-11-18] MEDS: VALPROATE SOD IV SCH ×4 (04:29→20:59)
[2021-11-18] MEDS: WATER IV SCH ×4 (04:29→20:59)
[2021-11-18] MEDS: DEXTROSE 5% IV SCH ×4 (04:29→20:59)
[2021-11-18 06:00] VITALS: BP 114/74
[2021-11-18] MEDS: baclofen 10mg tablet PO SCH ×2 (08:00→20:00)
[2021-11-18] MEDS: gabapentin 300mg capsule PO SCH ×3 (08:00→21:00)
[2021-11-18] MEDS: ascorbic acid 500mg tablet PO SCH ×2 (08:00→20:00)
[2021-11-18] MEDS: docusate sod 100mg capsule PO SCH ×2 (08:00→20:00)
[2021-11-18] MEDS: K and/or MAG REPLACEMENT MC SCH ×2 (08:00→20:24)
--- NOTE | 2021-11-18 08:30 | NUR ---
Discontinued the right PIV observed edema. after 4 times to tried new access fail.
[2021-11-18] MEDS: LACOSAMIDE 200mg/20ml inj. 200 MG in normal saline 100ml IV soln 100 ML IV SCH ×2 (08:41→20:49)
[2021-11-18] MEDS: levetiracetam-NS 1000mg/100ml 100 ML IV SCH ×2 (08:41→19:52)
[2021-11-18] MEDS: pantoprazole 40MG/NS 100ML BAG 100 ML IV SCH ×2 (08:41→18:53)
--- NOTE | 2021-11-18 09:23 | NUR ---
MURRAY PICC RN.. PT IN 6613B NEEDS IV DIANA, MULTIPLE ATTEMPTS MADE, PLS & TY:)
[2021-11-18 10:00] VITALS: BP 110/77
[2021-11-18] MEDS: dextrose 5%-normal saline 1,000 ML IV SCH (10:15)
[2021-11-18 10:35] LABS: BASOPHILS % (AUTO) 0.7 % (0-1); EOSINOPHILS # (AUTO) 0.1 X10'3 (0-0.9); EOSINOPHILS % (AUTO) 2.4 % (0-6); HEMATOCRIT 43.8 % (42.0-52.0); HEMOGLOBIN 14.7 g/dl (14.0-17.9); MEAN CORPUSCULAR HEMOGLOBIN 31.3 PG (27.0-31.0); MEAN CORPUSCULAR HGB CONC 33.5 g/dL (33.0-36.5); MEAN CORPUSCULAR VOLUME 93.4 FL (78-98); MEAN PLATELET VOLUME 9.4 FL (7.4-10.4); MONOCYTES # (AUTO) 0.6 X10'3 (0-0.9); MONOCYTES % (AUTO) 11.3 % (2-12); NEUTROPHILS # (AUTO) 2.8 X10'3 (1.8-7.7); NEUTROPHILS % (AUTO) 49.6 % (42-75); PLATELET COUNT 381 X10'3 (140-440); RED BLOOD COUNT 4.69 X10'6 (4.70-6.10); RED CELL DISTRIBUTION WIDTH 17.1 % (11.5-14.5); WHITE BLOOD COUNT 5.6 X10'3 (4.5-11.0)
[2021-11-18 12:25] LABS: ANISOCYTOSIS 1+; BURR CELLS 1+; PLATELET ESTIMATE NORMAL; SCHISTOCYTES FEW
[2021-11-18 13:02] LABS: ALBUMIN 3.4 G/DL (3.4-5.0); ANION GAP 9 (8-16); BLOOD UREA NITROGEN 4 MG/DL (7-18); BUN/CREATININE RATIO 9.8 (5.4-32.0); CALCIUM 8.7 MG/DL (8.5-10.1); CHLORIDE 103 MMOL/L (99-107); CREATININE 0.41 MG/DL (0.60-1.10); GLUCOSE 107 MG/DL (70-104); POTASSIUM 4.1 MMOL/L (3.5-5.1); SODIUM 141 MMOL/L (135-145); TOTAL CARBON DIOXIDE 29.5 MMOL/L (24-32); eGFR > 90 ML/MIN
[2021-11-18 14:00] VITALS: BP 126/86
--- NOTE | 2021-11-18 14:42 | NUR ---
F/u 2/3: Pt PEG placement continues to be postponed now until pt out of isolation per EMR. Pt now day 14 no nutrition this admit and possibly to come out of isolation today per MD note. Pt remains on D5/NS at 70ml/hr providing 286 kcals/day since 11/06 not sufficient nutrition. Pt s/p peripheral line placement by PICC RN today per EMR. RD paged MD regarding PPN initiation if PEG placement will continue to be deferred in order to provide more significant nutrition. Last significant BM 11/06 though no PO intake since then likely impacting GI motility. Will continue to monitor for further nutrition intervention needs. Recommendations: 1) PEG feeds per MD using Vital AF at 70ml/hr would provide 1680ml volume/day, 2016 kcals, 1361ml water, and 126g protein. 2) additional water flush 125ml Q4H 3) PALB Q /; daily scaled wts 4) Monitor for TF tolerance and adjustment needs pending scaled wt this admit; high chance of refeeding given 7 days prior NPO status 5) routine bowel care 6) Scaled wt this admit Addendum: 11/18/21 at [address] Amended: Links added.
--- NOTE | 2021-11-18 15:33 | NUR ---
PPN Consult: RD d/w MD who is agreeable for PPN at this time; PPN recs below. Will monitor for PN tolerance given higher chance of refeeding w/ current poor nutrition status. Recommendations: 1) Continuous PPN per MD using Clinimix E 4.25/10 at 90ml/hr goal w/ separate 250ml 20% intralipids to run 12hours each day at 20.83ml/hr. In total; to provide 2160ml volume/day, 92g AA, 216g DEX (2.39mg/kg/min), and avg 1245 kcals/day. 2) TG/PALB Q /; daily scaled wts 3) Monitor for PN tolerance and signs of refeeding syndrome 4) Once TF following PEG placement; PEG feeds using Vital AF at 70ml/hr would provide 1680ml volume/day, 2016 kcals, 1361ml water, and 126g protein. Once TF; additional water flush 125ml Q4H. 5) routine bowel care 6) Scaled wt this admit Addendum: 11/18/21 at [address] Amended: Links added. Addendum: 11/18/21 at [address] *CORRECTION* PPN Consult: ALIVIA d/w MD who is agreeable for PPN at this time; PPN recs below. Unable to meet estimated needs given lower concentration nature of PPN formula. Will monitor for PN tolerance given higher chance of refeeding w/ current poor nutrition status. Recommendations: 1) Continuous PPN per MD using Clinimix E 4.25/10 at 90ml/hr goal w/ separate 250ml 20% intralipids to run 12 hours Tu/Fri at 20.83ml/hr. In total; to provide 2160ml volume/day, 92g AA, 216g DEX (2.39mg/kg/min), and avg 1245 kcals/day. 2) TG/PALB Q /; daily scaled wts 3) Monitor for PN tolerance and signs of refeeding syndrome 4) Once TF following PEG placement; PEG feeds using Vital AF at 70ml/hr would provide 1680ml volume/day, 2016 kcals, 1361ml water, and 126g protein. Once TF; additional water flush 125ml Q4H. 5) routine bowel care 6) Scaled wt this admit
--- NOTE | 2021-11-18 15:40 | NUR ---
*CORRECTION* PPN Consult: ALIVIA d/w MD who is agreeable for PPN at this time; PPN recs below. Unable to meet estimated needs given lower concentration nature of PPN formula. Will monitor for PN tolerance given higher chance of refeeding w/ current poor nutrition status. Recommendations: 1) Continuous PPN per MD using Clinimix E 4.25/10 at 90ml/hr goal w/ separate 250ml 20% intralipids to run 12 hours /Mon at 20.83ml/hr. In total; to provide 2160ml volume/day, 92g AA, 216g DEX (2.39mg/kg/min), and avg 1245 kcals/day. 2) TG/PALB Q /; daily scaled wts 3) Monitor for PN tolerance and signs of refeeding syndrome 4) Once TF following PEG placement; PEG feeds using Vital AF at 70ml/hr would provide 1680ml volume/day, 2016 kcals, 1361ml water, and 126g protein. Once TF; additional water flush 125ml Q4H. 5) routine bowel care 6) Scaled wt this admit Addendum: 11/18/21 at [address] Amended: Links added.
[2021-11-18] MEDS ORDERED: magnesium Cl slow-release 64mg tablet PO PRN (16:00)
[2021-11-18] MEDS ORDERED: Dextrose 10%-water IV solution 1,000 ML IV PRN (16:00)
[2021-11-18] MEDS ORDERED: magnesium 2GM in 50ml NS 50 ML IV PRN (16:00)
[2021-11-18] MEDS ORDERED: magnesium 4gm in 100ml NS 100 ML IV PRN (16:00)
[2021-11-18 17:04] LABS: PHOSPHORUS 3.3 MG/DL (2.3-4.5); PREALBUMIN 20.7 MG/DL (19-36)
[2021-11-18 18:00] VITALS: BP 127/69
[2021-11-18 22:00] VITALS: BP 127/79
[2021-11-18] MEDS: ZINC/COPPER/MANGANESE/SELENIUM 0.5 ML, chromic chloride inj. 5 MCG in AA 4.25%/CALCIUM/... IV SCH (22:00)
[2021-11-19] MEDS: heparin, porcine 5000 units/ml vial SQ SCH ×3 (00:25→16:04)
[2021-11-19] MEDS: dextrose 5%-normal saline 1,000 ML IV SCH ×2 (00:33→14:32)
[2021-11-19 02:00] VITALS: BP 110/77
[2021-11-19] MEDS: WATER IV SCH ×4 (02:00→19:40)
[2021-11-19] MEDS: VALPROATE SOD IV SCH ×4 (02:00→19:40)
[2021-11-19] MEDS: DEXTROSE 5% IV SCH ×4 (02:00→19:40)
--- NOTE | 2021-11-19 02:39 | NUR ---
repositioned patient onto left side. floated heels and elbows. IV intact. warmed up room, pt feet and hands cold even under blankets.
[2021-11-19 06:00] VITALS: BP 106/59
--- NOTE | 2021-11-19 06:26 | NUR ---
Problems reprioritized. Patient report given, questions answered & plan of care reviewed with Marisela..
--- NOTE | 2021-11-19 06:28 | NUR ---
Patient in room ORTH[facility] 4008. I have received report from CHRISTINE AUSTIN, and had the opportunity to ask questions and assume patient care.
[2021-11-19] MEDS: LACOSAMIDE 200mg/20ml inj. 200 MG in normal saline 100ml IV soln 100 ML IV SCH ×2 (07:02→18:58)
[2021-11-19] MEDS: levetiracetam-NS 1000mg/100ml 100 ML IV SCH ×2 (07:43→19:41)
--- NOTE | 2021-11-19 07:59 | NUR ---
Paged Dr Burton PAGER ID: [phone] MESSAGE: [phone]. Luis Carney. Can we get an order for PICC? Mulitple IV meds and continuous PPN. Thanks, Kari [phone]
[2021-11-19] MEDS: ascorbic acid 500mg tablet PO SCH ×2 (08:00→19:44)
[2021-11-19] MEDS: K and/or MAG REPLACEMENT MC SCH ×2 (08:00→20:00)
[2021-11-19] MEDS: lactobacillus rhamnosus 10,000 MMU CELLS/CAPSULE PO SCH (08:00)
[2021-11-19] MEDS: gabapentin 300mg capsule PO SCH ×3 (08:00→21:00)
[2021-11-19] MEDS: baclofen 10mg tablet PO SCH ×2 (08:00→19:44)
[2021-11-19] MEDS: docusate sod 100mg capsule PO SCH ×2 (08:00→19:43)
--- NOTE | 2021-11-19 08:22 | NUR ---
Paged Dr Burton PAGER ID: [phone] MESSAGE: [phone]. Luis Cedeño. Need PICC consent signed. Thanks, Kari [phone]
--- NOTE | 2021-11-19 09:46 | NUR ---
Called Conservator Komal Matute office [phone] - pyne message to call back CELL [phone] - tynj message to call back
[2021-11-19] MEDS: pantoprazole 40MG/NS 100ML BAG 100 ML IV SCH ×2 (09:50→19:42)
[2021-11-19 10:00] VITALS: BP 116/74
--- NOTE | 2021-11-19 10:00 | NUR ---
CONSERVATOR RETURNED CALL, RECEIVED CONSENT. WITNESSED BY CHRISTINE DELA CRUZ AND CHRISTINE SCOTT.
[2021-11-19] MEDS: MVI, adult No.4 with vit. K 10 ML in dextrose 5% water 500ml 500 ML IV SCH ×2 (11:05)
[2021-11-19 11:26] LABS: MAGNESIUM 2.1 MG/DL (1.5-2.4); PHOSPHORUS 3.5 MG/DL (2.3-4.5)
--- NOTE | 2021-11-19 12:38 | NUR ---
PAGE SENT PAGER ID: [phone] MESSAGE: [phone], BRIGIDO FORD, PICC IN PLACE AND READY TO USE. THANK YOU, SONIA [id number]
--- NOTE | 2021-11-19 12:50 | NUR ---
PAGE SENT PAGER ID: [phone] MESSAGE: [phone], BRIGIDO FORD, PT IS OFF ISOLATION. THANK YOU, SONIA [phone]
--- NOTE | 2021-11-19 12:58 | NUR ---
PAGE SENT TO DIETARY 1267, BRIGIDO FORD, PICC PLACED. THANK YOU, SONIA Lyle [phone]
--- NOTE | 2021-11-19 13:20 | NUR ---
PAGE SENT [id number], BRIGIDO FORD, MANAGER IT SECURITY ASKING ABOUT PLANS FOR A PEG. THANK YOU, SONIA [phone]
--- NOTE | 2021-11-19 13:59 | NUR ---
RN TC: Pt s/p PICC line placement and pt to transition to TPN from current PPN as unsure of time until PEG placement per MD; initial PN consult active in EMR. TPN recs below given pt needs. Pt Mg/Phos WNL today pending CMP tomorrow. Will monitor for TPN tolerance and adjustment needs as medically indicated. Recommendations: 1) Continuous TPN per MD via PICC using Clinimix E 5/20 at 85ml/hr goal w/ separate 250ml 20% intralipids to run 12 hours /Mon at 20.83ml/hr. In total; to provide 2040ml volume/day, 102g AA, 408g DEX (4.51mg/kg/min), and avg 1938 kcals/day. 2) TG/PALB Q /; daily scaled wts 3) Monitor for PN tolerance and signs of refeeding syndrome 4) Once TF following PEG placement; PEG feeds using Vital AF at 70ml/hr would provide 1680ml volume/day, 2016 kcals, 1361ml water, and 126g protein. Once TF; additional water flush 125ml Q4H. 5) routine bowel care Addendum: 11/19/21 at [address] Amended: Links added.
[2021-11-19 14:00] VITALS: BP 139/88
--- NOTE | 2021-11-19 15:27 | NUR ---
PAGE SENT PAGER ID: [phone] MESSAGE: [phone], BRIGIDO FORD, DO YOU WANT TO CONTINUE WITH THE D5 NS? PT'S 1400 BG 108. THANK YOU, SONIA [id number]
[2021-11-19] MEDS: ZINC/COPPER/MANGANESE/SELENIUM 0.5 ML, chromic chloride inj. 5 MCG in AA 4.25%/CALCIUM/... IV SCH (15:53)
[2021-11-19 18:00] VITALS: BP 120/76
--- NOTE | 2021-11-19 18:14 | NUR ---
Patient in room ORTH[facility] 4008. I have received report from CHRISTINE AUSTIN, and had the opportunity to ask questions and assume patient care.
[2021-11-19] MEDS: ZINC/COPPER/MANGANESE/SELENIUM 0.5 ML, chromic chloride inj. 5 MCG in AA 5%/CALCIUM/LYT... IV SCH (20:00)
[2021-11-19 22:00] VITALS: BP 116/75
[2021-11-20] MEDS: heparin, porcine 5000 units/ml vial SQ SCH ×3 (00:38→16:20)
[2021-11-20] MEDS: VALPROATE SOD IV SCH ×4 (02:17→20:00)
[2021-11-20] MEDS: DEXTROSE 5% IV SCH ×4 (02:17→20:00)
[2021-11-20] MEDS: WATER IV SCH ×4 (02:17→20:00)
[2021-11-20 06:00] VITALS: BP 134/71
--- NOTE | 2021-11-20 06:57 | NUR ---
Problems reprioritized. Patient report given, questions answered & plan of care reviewed with ANGUS.
[2021-11-20] MEDS: ZINC/COPPER/MANGANESE/SELENIUM 0.5 ML, chromic chloride inj. 5 MCG in AA 5%/CALCIUM/LYT... IV SCH ×2 (07:18→20:45)
[2021-11-20] MEDS: LACOSAMIDE 200mg/20ml inj. 200 MG in normal saline 100ml IV soln 100 ML IV SCH ×2 (07:19→20:00)
[2021-11-20] MEDS: pantoprazole 40MG/NS 100ML BAG 100 ML IV SCH ×2 (08:00→20:00)
[2021-11-20] MEDS: baclofen 10mg tablet PO SCH ×2 (08:00→20:00)
[2021-11-20] MEDS: K and/or MAG REPLACEMENT MC SCH ×2 (08:00→20:00)
[2021-11-20] MEDS: ascorbic acid 500mg tablet PO SCH ×2 (08:00→20:00)
[2021-11-20] MEDS: gabapentin 300mg capsule PO SCH ×3 (08:00→21:00)
[2021-11-20] MEDS: docusate sod 100mg capsule PO SCH ×2 (08:00→20:00)
[2021-11-20] MEDS: levetiracetam-NS 1000mg/100ml 100 ML IV SCH ×2 (08:00→20:00)
[2021-11-20] MEDS: lactobacillus rhamnosus 10,000 MMU CELLS/CAPSULE PO SCH (08:00)
[2021-11-20 10:00] VITALS: BP 128/80
[2021-11-20 10:35] LABS: ALANINE AMINOTRANSFERASE 21 U/L (12-78); ALKALINE PHOSPHATASE 42 IU/L (46-116); ANION GAP 5 (8-16); ASPARTATE AMINO TRANSFERASE 9 U/L (10-37); BILIRUBIN,TOTAL 0.3 MG/DL (0.1-1.0); BLOOD UREA NITROGEN 10 MG/DL (7-18); BUN/CREATININE RATIO 29.4 (5.4-32.0); CALCIUM 8.2 MG/DL (8.5-10.1); CHLORIDE 106 MMOL/L (99-107); CREATININE 0.34 MG/DL (0.60-1.10); GLUCOSE 177 MG/DL (70-104); MAGNESIUM 2.1 MG/DL (1.5-2.4); PHOSPHORUS 3.5 MG/DL (2.3-4.5); POTASSIUM 3.8 MMOL/L (3.5-5.1); SODIUM 143 MMOL/L (135-145); TOTAL CARBON DIOXIDE 32.2 MMOL/L (24-32); TOTAL PROTEIN 6.1 G/DL (6.4-8.2); eGFR > 90 ML/MIN
[2021-11-20] MEDS: dextrose 5%-normal saline 1,000 ML IV SCH (12:40)
[2021-11-20 14:00] VITALS: BP 114/68
[2021-11-20 18:00] VITALS: BP 123/77
[2021-11-20 22:00] VITALS: BP 102/61
[2021-11-21] MEDS: heparin, porcine 5000 units/ml vial SQ SCH ×3 (01:13→16:39)
[2021-11-21] MEDS: VALPROATE SOD IV SCH ×4 (01:17→19:52)
[2021-11-21] MEDS: DEXTROSE 5% IV SCH ×4 (01:17→19:52)
[2021-11-21] MEDS: WATER IV SCH ×4 (01:17→19:52)
[2021-11-21 02:00] VITALS: BP 122/77
[2021-11-21 06:00] VITALS: BP 138/90
--- NOTE | 2021-11-21 06:29 | NUR ---
Problems reprioritized. Patient report given, questions answered & plan of care reviewed with
[2021-11-21] MEDS: docusate sod 100mg capsule PO SCH ×2 (08:00→20:00)
[2021-11-21] MEDS: baclofen 10mg tablet PO SCH ×2 (08:00→20:00)
[2021-11-21] MEDS: gabapentin 300mg capsule PO SCH ×3 (08:00→21:00)
[2021-11-21] MEDS: K and/or MAG REPLACEMENT MC SCH ×2 (08:00→20:00)
[2021-11-21] MEDS: lactobacillus rhamnosus 10,000 MMU CELLS/CAPSULE PO SCH (08:00)
[2021-11-21] MEDS: ascorbic acid 500mg tablet PO SCH ×2 (08:00→20:00)
--- NOTE | 2021-11-21 08:00 | NUR ---
Spoke to Milagro the pharmacist to verify all piggy bag medications are compatible with D5 and he stated they are.
[2021-11-21] MEDS: LACOSAMIDE 200mg/20ml inj. 200 MG in normal saline 100ml IV soln 100 ML IV SCH ×2 (08:05→21:03)
[2021-11-21] MEDS: dextrose 5%-normal saline 1,000 ML IV SCH (08:05)
[2021-11-21] MEDS: levetiracetam-NS 1000mg/100ml 100 ML IV SCH ×2 (08:05→19:50)
[2021-11-21] MEDS: pantoprazole 40MG/NS 100ML BAG 100 ML IV SCH ×2 (08:05→19:41)
[2021-11-21] MEDS: ZINC/COPPER/MANGANESE/SELENIUM 0.5 ML, chromic chloride inj. 5 MCG in AA 5%/CALCIUM/LYT... IV SCH ×2 (08:06→17:19)
[2021-11-21 10:00] VITALS: BP 135/75
--- NOTE | 2021-11-21 11:11 | NUR ---
Sent message to pharmacy regarding Infuvite needing to be Dc'd per instructions when patient no longer on PPN.
--- NOTE | 2021-11-21 11:33 | NUR ---
No labs drawn today will advise
--- NOTE | 2021-11-21 14:11 | NUR ---
Dr Wolff will contact Dr Ellis regarding PEG tube.
[2021-11-21 15:08] VITALS: BP 134/78
[2021-11-21 18:00] VITALS: BP 125/79
--- NOTE | 2021-11-21 18:42 | NUR ---
Problems reprioritized. Patient report given, questions answered & plan of care reviewed with justine KING.
[2021-11-21 22:00] VITALS: BP 131/84
[2021-11-22] MEDS: heparin, porcine 5000 units/ml vial SQ SCH ×3 (00:14→15:28)
--- NOTE | 2021-11-22 01:08 | NUR ---
Patient is alert, nonverbal will transfer to medical floor, report given to Tosha RN no acute distress noted.
[2021-11-22 01:29] VITALS: BP 121/77
[2021-11-22] MEDS: WATER IV SCH ×4 (02:00→19:16)
[2021-11-22] MEDS: DEXTROSE 5% IV SCH ×4 (02:00→19:16)
[2021-11-22] MEDS: VALPROATE SOD IV SCH ×4 (02:00→19:16)
[2021-11-22] MEDS: dextrose 5%-normal saline 1,000 ML IV SCH ×2 (02:32→15:29)
--- NOTE | 2021-11-22 06:48 | NUR ---
Problems re-prioritized ,report given ,questions answered and plan of care reviewed with Nargis KING
[2021-11-22] MEDS: ZINC/COPPER/MANGANESE/SELENIUM 0.5 ML, chromic chloride inj. 5 MCG in AA 5%/CALCIUM/LYT... IV SCH ×2 (07:00→15:29)
--- NOTE | 2021-11-22 07:01 | NUR ---
Patient in room [facility] 347. I have received report from ENEDELIA KING and had the opportunity to ask questions and assume patient care.
--- NOTE | 2021-11-22 07:10 | NUR ---
PAGER ID: [phone] MESSAGE: [phone] Mike Carney: no labs drawn since 11/20, would you like CBC and CMP ordered? thank you! damien [phone]
[2021-11-22 07:17] VITALS: BP 133/76
[2021-11-22] MEDS: lactobacillus rhamnosus 10,000 MMU CELLS/CAPSULE PO SCH (08:00)
[2021-11-22] MEDS: baclofen 10mg tablet PO SCH ×2 (08:00→20:00)
[2021-11-22] MEDS: docusate sod 100mg capsule PO SCH ×2 (08:00→20:00)
[2021-11-22] MEDS: ascorbic acid 500mg tablet PO SCH ×2 (08:00→20:00)
[2021-11-22] MEDS: gabapentin 300mg capsule PO SCH ×3 (08:00→21:00)
[2021-11-22] MEDS: K and/or MAG REPLACEMENT MC SCH ×2 (08:00→20:00)
[2021-11-22 08:14] LABS: MAGNESIUM 2.2 MG/DL (1.5-2.4); PHOSPHORUS 4.3 MG/DL (2.3-4.5); PREALBUMIN 19.1 MG/DL (19-36); TRIGLYCERIDES 48 MG/DL (20-135)
[2021-11-22] MEDS: LACOSAMIDE 200mg/20ml inj. 200 MG in normal saline 100ml IV soln 100 ML IV SCH ×2 (08:55→19:06)
[2021-11-22] MEDS: pantoprazole 40MG/NS 100ML BAG 100 ML IV SCH ×2 (10:41→19:11)
[2021-11-22 11:00] VITALS: BP 128/60
[2021-11-22 11:33] LABS: BASOPHILS % (AUTO) 0.6 % (0-1); EOSINOPHILS # (AUTO) 0.2 X10'3 (0-0.9); EOSINOPHILS % (AUTO) 2.7 % (0-6); HEMATOCRIT 38.4 % (42.0-52.0); HEMOGLOBIN 12.7 g/dl (14.0-17.9); LYMPHOCYTES # (AUTO) 2.1 X10'3 (1.1-4.8); LYMPHOCYTES % (AUTO) 29.7 % (21-51); MEAN CORPUSCULAR HEMOGLOBIN 31.4 PG (27.0-31.0); MEAN CORPUSCULAR VOLUME 95.1 FL (78-98); MEAN PLATELET VOLUME 10.5 FL (7.4-10.4); MONOCYTES # (AUTO) 0.9 X10'3 (0-0.9); MONOCYTES % (AUTO) 13.1 % (2-12); NEUTROPHILS # (AUTO) 3.9 X10'3 (1.8-7.7); NEUTROPHILS % (AUTO) 53.9 % (42-75); PLATELET COUNT 256 X10'3 (140-440); RED BLOOD COUNT 4.04 X10'6 (4.70-6.10); RED CELL DISTRIBUTION WIDTH 17.1 % (11.5-14.5); WHITE BLOOD COUNT 7.2 X10'3 (4.5-11.0)
[2021-11-22] MEDS: levetiracetam-NS 1000mg/100ml 100 ML IV SCH ×2 (11:41→19:19)
[2021-11-22 11:48] LABS: ALANINE AMINOTRANSFERASE 25 U/L (12-78); ALBUMIN/GLOBULIN RATIO 0.9 (1.1-1.5); ALKALINE PHOSPHATASE 46 IU/L (46-116); ANION GAP 9 (8-16); ASPARTATE AMINO TRANSFERASE 14 U/L (10-37); BILIRUBIN,TOTAL 0.4 MG/DL (0.1-1.0); BLOOD UREA NITROGEN 10 MG/DL (7-18); BUN/CREATININE RATIO 66.7 (5.4-32.0); CALCIUM 8.3 MG/DL (8.5-10.1); CHLORIDE 106 MMOL/L (99-107); CREATININE 0.15 MG/DL (0.60-1.10); GLUCOSE 115 MG/DL (70-104); POTASSIUM 3.8 MMOL/L (3.5-5.1); SODIUM 142 MMOL/L (135-145); TOTAL CARBON DIOXIDE 26.9 MMOL/L (24-32); TOTAL PROTEIN 6.2 G/DL (6.4-8.2); eGFR > 90 ML/MIN
[2021-11-22 11:55] LABS: ANISOCYTOSIS 1+; PLATELET ESTIMATE NORMAL
[2021-11-22 11:56] LABS: BURR CELLS 2+
--- NOTE | 2021-11-22 11:58 | NUR ---
Dr. Wolff at bedside. Stated that she will contact Surgeon to proceed with G-Tube placement.
--- NOTE | 2021-11-22 12:32 | NUR ---
Reassessment: Pt continues to receive TPN at goal and tolerating well. Still pending PEG placement at this time, will continue w/ TPN until pt able to transition to TF. LBM 11/21. No changes to recommendations at this time, will continue to monitor. Recommendations: 1) Continuous TPN per MD via PICC using Clinimix E /20 at 85ml/hr goal w/ separate 250ml 20% intralipids to run 12 hours /Mon at 20.83ml/hr. In total; to provide 2040ml volume/day, 102g AA, 408g DEX (4.51mg/kg/min), and avg 1938 kcals/day. 2) TG/PALB Q /; daily scaled wts 3) Monitor for PN tolerance and signs of refeeding syndrome 4) Once TF following PEG placement; PEG feeds using Vital AF at 70ml/hr would provide 1680ml volume/day, 2016 kcals, 1361ml water, and 126g protein. Once TF; additional water flush 125ml Q4H. 5) routine bowel care Addendum: 11/22/21 at [address] Amended: Links added.
--- NOTE | 2021-11-22 18:22 | NUR ---
Problems reprioritized. Patient report given, questions answered & plan of care reviewed with IVA KING.
--- NOTE | 2021-11-22 18:23 | NUR ---
Student documentation: I have reviewed and agree with all interventions, assessments performed and documented by SN Dusty. Student Medication Administration: For this medication-pass time frame, all medication were reviewed, dispensed, administered and documented per hospital policy by SN Dusty.
[2021-11-22 20:00] VITALS: BP 130/89
[2021-11-23] VITALS (20 sets, daily range): BP systolic 112–149; BP diastolic 69–97
[2021-11-23] MEDS: heparin, porcine 5000 units/ml vial SQ SCH ×4 (00:12→23:37)
[2021-11-23] MEDS: VALPROATE SOD IV SCH ×4 (01:57→20:14)
[2021-11-23] MEDS: DEXTROSE 5% IV SCH ×4 (01:57→20:14)
[2021-11-23] MEDS: WATER IV SCH ×4 (01:57→20:14)
[2021-11-23] MEDS: ZINC/COPPER/MANGANESE/SELENIUM 0.5 ML, chromic chloride inj. 5 MCG in AA 5%/CALCIUM/LYT... IV SCH ×2 (03:40→14:48)
[2021-11-23 04:13] LABS: BASOPHILS # (AUTO) 0.1 X10'3 (0-0.2); BASOPHILS % (AUTO) 1.1 % (0-1); EOSINOPHILS # (AUTO) 0.3 X10'3 (0-0.9); EOSINOPHILS % (AUTO) 3.3 % (0-6); HEMATOCRIT 37.3 % (42.0-52.0); HEMOGLOBIN 12.4 g/dl (14.0-17.9); LYMPHOCYTES # (AUTO) 2.3 X10'3 (1.1-4.8); LYMPHOCYTES % (AUTO) 26.7 % (21-51); MEAN CORPUSCULAR HEMOGLOBIN 31.1 PG (27.0-31.0); MEAN CORPUSCULAR HGB CONC 33.2 g/dL (33.0-36.5); MEAN CORPUSCULAR VOLUME 93.8 FL (78-98); MEAN PLATELET VOLUME 9.5 FL (7.4-10.4); MONOCYTES % (AUTO) 11.7 % (2-12); NEUTROPHILS # (AUTO) 4.8 X10'3 (1.8-7.7); NEUTROPHILS % (AUTO) 57.2 % (42-75); PLATELET COUNT 151 X10'3 (140-440); RED BLOOD COUNT 3.97 X10'6 (4.70-6.10); RED CELL DISTRIBUTION WIDTH 16.7 % (11.5-14.5); WHITE BLOOD COUNT 8.5 X10'3 (4.5-11.0)
[2021-11-23 04:40] LABS: ALANINE AMINOTRANSFERASE 18 U/L (12-78); ALBUMIN 2.8 G/DL (3.4-5.0); ALBUMIN/GLOBULIN RATIO 0.9 (1.1-1.5); ALKALINE PHOSPHATASE 47 IU/L (46-116); ANION GAP 4 (8-16); ASPARTATE AMINO TRANSFERASE 9 U/L (10-37); BILIRUBIN,TOTAL 0.2 MG/DL (0.1-1.0); BLOOD UREA NITROGEN 10 MG/DL (7-18); BUN/CREATININE RATIO 47.6 (5.4-32.0); CALCIUM 7.7 MG/DL (8.5-10.1); CHLORIDE 106 MMOL/L (99-107); CREATININE 0.21 MG/DL (0.60-1.10); GLUCOSE 163 MG/DL (70-104); POTASSIUM 3.7 MMOL/L (3.5-5.1); SODIUM 139 MMOL/L (135-145); TOTAL CARBON DIOXIDE 29.3 MMOL/L (24-32); eGFR > 90 ML/MIN
[2021-11-23] MEDS: ascorbic acid 500mg tablet PO SCH ×2 (06:45→20:00)
[2021-11-23] MEDS: baclofen 10mg tablet PO SCH ×2 (06:45→20:00)
[2021-11-23] MEDS: gabapentin 300mg capsule PO SCH ×3 (06:45→21:00)
[2021-11-23] MEDS: lactobacillus rhamnosus 10,000 MMU CELLS/CAPSULE PO SCH (06:46)
[2021-11-23] MEDS: docusate sod 100mg capsule PO SCH ×2 (06:46→20:00)
[2021-11-23] MEDS: LACOSAMIDE 200mg/20ml inj. 200 MG in normal saline 100ml IV soln 100 ML IV SCH ×2 (06:53→19:52)
[2021-11-23] MEDS: MVI, adult No.4 with vit. K 10 ML in dextrose 5% water 500ml 500 ML IV SCH ×2 (07:05)
--- NOTE | 2021-11-23 07:40 | NUR ---
PROBLEMS RE-PRIORITIZED,REPORT GIVEN,CARE PLAN REVIEWED WITH SARAH KING
[2021-11-23] MEDS: K and/or MAG REPLACEMENT MC SCH ×2 (08:00→20:00)
--- NOTE | 2021-11-23 08:04 | NUR ---
Left message for Komal -Rimaator. to call us back re: consent on patient
--- NOTE | 2021-11-23 08:07 | NUR ---
Called and spoke to Cristobal the OR charger operator and he is aware patient has been out of Covid isolation since 2/[address]cdonald. and that Hermelindo with infection does not want us to recheck patient. Cristobal with OR is aware. Also, Cristobal in the OR Charge, is aware that we left a message for the conservator Komal regarding consent. Per Cristobal Conservator usually just give consent over the phone and they already have consent but just let her know to be available for Dr Cuellar to call her for consent. Patient scheduled to go to OR at 1000
[2021-11-23] MEDS: levetiracetam-NS 1000mg/100ml 100 ML IV SCH ×2 (08:37→20:24)
--- NOTE | 2021-11-23 10:58 | NUR ---
REPORT CALLED TO CHRISTINE EDMOND IN RECOVERY.
[2021-11-23] MEDS ORDERED: sevoflurane 250ml liquid IH ONE (11:40)
[2021-11-23] MEDS ORDERED: rocuronium 10mg/ml inj IV ONE (11:40)
--- NOTE | 2021-11-23 11:53 | NUR ---
PAGER ID: [phone] MESSAGE: [phone] Mike Carney: Please call regarding a Critical Lab. thank you! damien [phone]
[2021-11-23] MEDS ORDERED: fentaNYL/PF 50MCG/1 ML 2ML syringe ONE (11:55)
[2021-11-23] MEDS ORDERED: midazolam 1 mg/ML 2ml injection ONE (12:05)
[2021-11-23] MEDS ORDERED: LIDOcaine 2% (20mg/ml) 5ml vial ONE (12:24)
[2021-11-23] MEDS ORDERED: propofol inj 20 ML IV ONE (12:24)
[2021-11-23] MEDS ORDERED: acetaminophen 1,000mg/100ml IV 100 ML IV ONE (13:01)
[2021-11-23] MEDS ORDERED: ceFOXitin 1000 MG inj ONE (13:01)
[2021-11-23] MEDS ORDERED: morphine 4 MG/ML inj SYRINge ONE (13:03)
[2021-11-23] MEDS ORDERED: BUPIVAcaine/PF 2.5mg/ml (0.25%) 10ml vial ONE (13:09)
[2021-11-23] MEDS ORDERED: glycopyrrolate 0.2mg/ml inj ONE (13:16)
[2021-11-23] MEDS ORDERED: neostigmine methylsulfate 1 MG/ML 10ml vial ONE (13:16)
[2021-11-23] MEDS ORDERED: morphine 4 MG/ML inj SYRINge IV PRN (13:50)
[2021-11-23] MEDS ORDERED: proCHLORperazine 10 MG/2 ml inj IV PRN (13:50)
[2021-11-23] MEDS ORDERED: morphine 2 MG/ML inj. syringe IV PRN (13:50)
[2021-11-23] MEDS ORDERED: meperidine/PF 25mg/ml syringe IV PRN ×3 (13:50)
[2021-11-23] MEDS ORDERED: ondansetron/PF 4mg/2ml inj IV PRN (13:50)
[2021-11-23] MEDS ORDERED: ringers solution, lacted 1,000 ML IV SCH (13:50)
--- NOTE | 2021-11-23 13:54 | NUR ---
accucheck post surgery 131 Addendum: 11/23/21 at 1356 by Winifred Thomas RN Amended: Links added.
--- NOTE | 2021-11-23 14:12 | NUR ---
report given to Diane KING 3rd floor.
[2021-11-23] MEDS: pantoprazole 40MG/NS 100ML BAG 100 ML IV SCH ×2 (14:47→23:10)
[2021-11-23] MEDS: dextrose 5%-normal saline 1,000 ML IV SCH (14:49)
--- NOTE | 2021-11-23 18:17 | NUR ---
Problems reprioritized. Patient report given, questions answered & plan of care reviewed with CHRISTINE ENRIQUE.
[2021-11-23] MEDS: morphine 4 MG/ML inj SYRINge IV PRN (21:07)
[2021-11-24] VITALS: BP 149/96
[2021-11-24] MEDS: morphine 4 MG/ML inj SYRINge IV PRN ×2 (01:12→19:23)
--- NOTE | 2021-11-24 02:21 | NUR ---
PAGER ID: [phone] MESSAGE: [phone] LILIANA BRIGIDO Pt very restless , groaning. Morphine IVP x 2 still restless 356 A Cj Belkis BP 180's and 190's systolically. Morphine 2mg x2, Dilaudid 0.5 x1.C/O pain 7 -10.HX of HTN Please advise Tosha [phone]
[2021-11-24] MEDS: VALPROATE SOD IV SCH ×4 (02:26→19:10)
[2021-11-24] MEDS: WATER IV SCH ×4 (02:26→19:10)
[2021-11-24] MEDS: DEXTROSE 5% IV SCH ×4 (02:26→19:10)
[2021-11-24] MEDS: HYDROmorphone inj. 0.5 MG/0.5 ML DISP.SYRIN IV PRN ×2 (03:04→13:05)
[2021-11-24 04:00] VITALS: BP 141/91
[2021-11-24 04:35] LABS: BASOPHILS # (AUTO) 0.1 X10'3 (0-0.2); EOSINOPHILS # (AUTO) 0.3 X10'3 (0-0.9); MONOCYTES # (AUTO) 1.2 X10'3 (0-0.9); WHITE BLOOD COUNT 12.1 X10'3 (4.5-11.0)
[2021-11-24 04:37] LABS: BASOPHILS % (AUTO) 0.6 % (0-1); EOSINOPHILS % (AUTO) 2.1 % (0-6); HEMATOCRIT 36.3 % (42.0-52.0); LYMPHOCYTES # (AUTO) 1.8 X10'3 (1.1-4.8); LYMPHOCYTES % (AUTO) 14.5 % (21-51); MEAN CORPUSCULAR HEMOGLOBIN 31.1 PG (27.0-31.0); MEAN CORPUSCULAR VOLUME 94.2 FL (78-98); MEAN PLATELET VOLUME 9.5 FL (7.4-10.4); MONOCYTES % (AUTO) 10.3 % (2-12); NEUTROPHILS # (AUTO) 8.8 X10'3 (1.8-7.7); NEUTROPHILS % (AUTO) 72.5 % (42-75); PLATELET COUNT 181 X10'3 (140-440); RED BLOOD COUNT 3.86 X10'6 (4.70-6.10); RED CELL DISTRIBUTION WIDTH 16.8 % (11.5-14.5)
[2021-11-24 05:07] LABS: ALANINE AMINOTRANSFERASE 21 U/L (12-78); ALBUMIN/GLOBULIN RATIO 0.9 (1.1-1.5); ALKALINE PHOSPHATASE 57 IU/L (46-116); ANION GAP 5 (8-16); ASPARTATE AMINO TRANSFERASE 14 U/L (10-37); BILIRUBIN,TOTAL 0.3 MG/DL (0.1-1.0); BLOOD UREA NITROGEN 10 MG/DL (7-18); BUN/CREATININE RATIO 32.3 (5.4-32.0); CHLORIDE 101 MMOL/L (99-107); CREATININE 0.31 MG/DL (0.60-1.10); GLUCOSE 89 MG/DL (70-104); POTASSIUM 4.4 MMOL/L (3.5-5.1); SODIUM 136 MMOL/L (135-145); TOTAL CARBON DIOXIDE 29.9 MMOL/L (24-32); TOTAL PROTEIN 6.2 G/DL (6.4-8.2); eGFR > 90 ML/MIN
[2021-11-24 06:15] LABS: ANISOCYTOSIS 1+; PLATELET ESTIMATE NORMAL; TOTAL CELLS COUNTED 100
[2021-11-24 06:16] LABS: BURR CELLS 5; ELLIPTOCYTES FEW
[2021-11-24] MEDS: LACOSAMIDE 200mg/20ml inj. 200 MG in normal saline 100ml IV soln 100 ML IV SCH ×2 (06:21→19:12)
[2021-11-24] MEDS: ZINC/COPPER/MANGANESE/SELENIUM 0.5 ML, chromic chloride inj. 5 MCG in AA 5%/CALCIUM/LYT... IV SCH ×2 (06:28→16:55)
--- NOTE | 2021-11-24 06:43 | NUR ---
PROBLEMS RE-PRIORITIZED, PATIENT REPORT GIVEN AND PLAN OF CARE REVIEWED WITH SARAH KING
[2021-11-24 07:00] VITALS: BP 145/85
[2021-11-24] MEDS: levetiracetam-NS 1000mg/100ml 100 ML IV SCH ×2 (07:52→19:10)
[2021-11-24] MEDS: heparin, porcine 5000 units/ml vial SQ SCH ×3 (07:52→23:42)
[2021-11-24] MEDS: lactobacillus rhamnosus 10,000 MMU CELLS/CAPSULE PO SCH (08:00)
[2021-11-24] MEDS: docusate sod 100mg capsule PO SCH ×2 (08:00→20:00)
[2021-11-24] MEDS: ascorbic acid 500mg tablet PO SCH ×2 (08:00→20:00)
[2021-11-24] MEDS: gabapentin 300mg capsule PO SCH ×3 (08:00→21:00)
[2021-11-24] MEDS: K and/or MAG REPLACEMENT MC SCH ×2 (08:00→20:00)
[2021-11-24] MEDS: baclofen 10mg tablet PO SCH ×2 (08:00→20:00)
[2021-11-24] MEDS: pantoprazole 40MG/NS 100ML BAG 100 ML IV SCH ×2 (08:43→19:10)
[2021-11-24 11:00] VITALS: BP 145/76
--- NOTE | 2021-11-24 13:11 | NUR ---
PAGER ID: [phone] MESSAGE: [phone] Mike Carney: patient seems very agitated and distended today. bowel sounds hypoactive. last temp 100 axillary heart rate has been in the low hundreds. thanks, damien [phone]
[2021-11-24] MEDS: dextrose 5%-normal saline 1,000 ML IV SCH (15:39)
--- NOTE | 2021-11-24 18:27 | NUR ---
Problems reprioritized. Patient report given, questions answered & plan of care reviewed with CHRISTINE Givens.
[2021-11-24 20:00] VITALS: BP 140/86
[2021-11-25] VITALS: BP 132/83
[2021-11-25] MEDS: DEXTROSE 5% IV SCH ×2 (02:21→09:28)
[2021-11-25] MEDS: VALPROATE SOD IV SCH ×2 (02:21→09:28)
[2021-11-25] MEDS: WATER IV SCH ×2 (02:21→09:28)
[2021-11-25 04:38] LABS: EOSINOPHILS # (AUTO) 0.2 X10'3 (0-0.9); HEMOGLOBIN 11.7 g/dl (14.0-17.9); MEAN CORPUSCULAR VOLUME 94.1 FL (78-98); MONOCYTES # (AUTO) 1.6 X10'3 (0-0.9); WHITE BLOOD COUNT 10.2 X10'3 (4.5-11.0)
[2021-11-25 04:40] LABS: BASOPHILS # (AUTO) 0.1 X10'3 (0-0.2); BASOPHILS % (AUTO) 0.9 % (0-1); EOSINOPHILS % (AUTO) 2.1 % (0-6); HEMATOCRIT 35.6 % (42.0-52.0); MEAN CORPUSCULAR HGB CONC 32.9 g/dL (33.0-36.5); MEAN PLATELET VOLUME 9.6 FL (7.4-10.4); MONOCYTES % (AUTO) 15.2 % (2-12); NEUTROPHILS # (AUTO) 6.3 X10'3 (1.8-7.7); NEUTROPHILS % (AUTO) 61.8 % (42-75); PLATELET COUNT 158 X10'3 (140-440); RED BLOOD COUNT 3.78 X10'6 (4.70-6.10)
[2021-11-25 04:47] LABS: ALANINE AMINOTRANSFERASE 19 U/L (12-78); ALBUMIN 2.8 G/DL (3.4-5.0); ALBUMIN/GLOBULIN RATIO 0.9 (1.1-1.5); ALKALINE PHOSPHATASE 58 IU/L (46-116); ANION GAP 4 (8-16); ASPARTATE AMINO TRANSFERASE 12 U/L (10-37); BILIRUBIN,TOTAL 0.3 MG/DL (0.1-1.0); BLOOD UREA NITROGEN 9 MG/DL (7-18); CALCIUM 8.1 MG/DL (8.5-10.1); CHLORIDE 101 MMOL/L (99-107); CREATININE 0.29 MG/DL (0.60-1.10); GLUCOSE 84 MG/DL (70-104); MAGNESIUM 2.1 MG/DL (1.5-2.4); PHOSPHORUS 3.9 MG/DL (2.3-4.5); POTASSIUM 4.6 MMOL/L (3.5-5.1); PREALBUMIN 15.6 MG/DL (19-36); SODIUM 136 MMOL/L (135-145); TOTAL CARBON DIOXIDE 31.5 MMOL/L (24-32); TOTAL PROTEIN 5.9 G/DL (6.4-8.2); TRIGLYCERIDES 65 MG/DL (20-135); eGFR > 90 ML/MIN
[2021-11-25] MEDS: ZINC/COPPER/MANGANESE/SELENIUM 0.5 ML, chromic chloride inj. 5 MCG in AA 5%/CALCIUM/LYT... IV SCH ×2 (05:37→17:36)
--- NOTE | 2021-11-25 06:52 | NUR ---
Problems re-prioritized,report given, questions answered and plan of care reviewed with day RN Marcia
[2021-11-25 07:00] VITALS: BP 141/80
[2021-11-25] MEDS: docusate sod 100mg capsule PO SCH (08:00)
[2021-11-25] MEDS: gabapentin 300mg capsule PO SCH (08:00)
[2021-11-25] MEDS: baclofen 10mg tablet PO SCH (08:00)
[2021-11-25] MEDS: ascorbic acid 500mg tablet PO SCH (08:00)
[2021-11-25] MEDS: lactobacillus rhamnosus 10,000 MMU CELLS/CAPSULE PO SCH (08:00)
[2021-11-25] MEDS: K and/or MAG REPLACEMENT MC SCH ×2 (08:00→20:00)
[2021-11-25] MEDS: LACOSAMIDE 200mg/20ml inj. 200 MG in normal saline 100ml IV soln 100 ML IV SCH (08:39)
[2021-11-25] MEDS: heparin, porcine 5000 units/ml vial SQ SCH ×3 (08:39→23:46)
[2021-11-25] MEDS: pantoprazole 40MG/NS 100ML BAG 100 ML IV SCH (09:26)
[2021-11-25] MEDS: levetiracetam-NS 1000mg/100ml 100 ML IV SCH (09:54)
[2021-11-25] MEDS: dextrose 5%-normal saline 1,000 ML IV SCH (09:55)
--- NOTE | 2021-11-25 10:16 | NUR ---
TF consult: Pt continues to receive TPN at goal and tolerating well, though will update recs as current formula out of stock per pharmacy. Pt has received PEG 11/24 and is okay to start TF today per Surgeon. Will also place Home bolus TF recs below. Per MD note, sepsis and Covid have resolved. LBM 11/24. Will continue to monitor. Recommendations: 1) Wean TPN as TF advances. Continuous TPN per MD via PICC using Clinimix E 02/27 at 95ml/hr goal w/ separate 250ml 20% intralipids to run 12 hours /Mon at 20.83ml/hr. In total; to provide 2280ml volume/day, 114g AA, 342g DEX (2.28mg/kg/min), and avg 1760 kcals/day. 2) Continuous TF per MD using Jevity 1.2 at 65ml/hr goal to provide 1560ml volume, 1872kcals, 87g protein, 1259ml free water 3) Additional water flush 150ml Q4H; monitor Serum Na 4) TG/PALB Q /; daily scaled wts 5) routine bowel [facility]DC BOLUS TF RECS 1. Bolus Feed QID using Jevity 1.5 or equivalent w/ goal rate of 330ml/bolus. Start at 85ml bolus and advance by 50ml/bolus as tolerated to goal rate. Feed at 0800, 1200 1600, 2000 2. Additional 60ml water flush before and after each bolus feed, monitor serum Na and adjust as appropriate. 3. Outpatient RD to titrate TF to goal and make adjustments as appropriate. Addendum: 11/25/21 at [address] Amended: Links added.
[2021-11-25 13:00] VITALS: BP 131/81
[2021-11-25] MEDS ORDERED: HYDROcodone/acetaminophen 7.5MG/325MG per 15ml UD CUP PEG PRN (13:35)
[2021-11-25] MEDS ORDERED: acetaminophen 325mg/10.15ml oral unit dose solution PEG PRN ×2 (13:35)
[2021-11-25] MEDS ORDERED: mag hydrox/Alum hydrox/simeth 30ml oral suspension PEG PRN (13:50)
--- NOTE | 2021-11-25 16:30 | NUR ---
ORDER STATES 150ML BUT SINCE IT IS THE FIRST FLUSH I ONLY DID 60ML Addendum: 11/25/21 at 1634 by Marcia Keane RN Amended: Links added.
--- NOTE | 2021-11-25 18:37 | NUR ---
Problems reprioritized. Patient report given, questions answered & plan of care reviewed with CHRISTINE ENRIQUE.
--- NOTE | 2021-11-25 18:37 | NUR ---
Problems reprioritized. Patient report given, questions answered & plan of care reviewed with CHRISTINE ENRIQUE.
[2021-11-25 20:00] VITALS: BP 138/82
[2021-11-25] MEDS: baclofen 10mg tablet PEG SCH (20:00)
[2021-11-25] MEDS ORDERED: LACOSAMIDE 10 MG/ML PEG SCH (20:00)
[2021-11-25] MEDS: docusate sodium 100mg/10ml UD cup PEG SCH (21:11)
[2021-11-25] MEDS: gabapentin 300mg capsule PEG SCH (21:12)
[2021-11-25] MEDS: ascorbic acid 500mg tablet PEG SCH (21:12)
[2021-11-25] MEDS: levetiracetam 100mg/ml oral solution 5ml UD cup PEG SCH (22:21)
[2021-11-25] MEDS: valproate sod 250mg/5ml UD oral syrup PEG SCH (22:22)
[2021-11-26] VITALS: BP 135/84
[2021-11-26] MEDS: ZINC/COPPER/MANGANESE/SELENIUM 0.5 ML, chromic chloride inj. 5 MCG in AA 5%/CALCIUM/LYT... IV SCH (05:24)
--- NOTE | 2021-11-26 06:45 | NUR ---
I have received report from CHRISTINE Givens and had the opportunity to ask questions and assume patient care.
[2021-11-26 08:00] VITALS: BP 156/106
[2021-11-26] MEDS: K and/or MAG REPLACEMENT MC SCH ×2 (08:00→20:00)
[2021-11-26] MEDS: MVI, adult No.4 with vit. K 10 ML in dextrose 5% water 500ml 500 ML IV SCH ×2 (08:00)
[2021-11-26] MEDS: ascorbic acid 500mg tablet PEG SCH ×2 (08:44→20:49)
[2021-11-26] MEDS: cholecalciferol (vitamin D3) 400 unit (10mcg) tablet PEG SCH (08:45)
[2021-11-26] MEDS: lansoprazole 15mg solutab PEG SCH (08:45)
[2021-11-26] MEDS: lactobacillus rhamnosus 10,000 MMU CELLS/CAPSULE PEG SCH (08:45)
[2021-11-26] MEDS: gabapentin 300mg capsule PEG SCH ×3 (08:45→21:01)
[2021-11-26] MEDS: docusate sodium 100mg/10ml UD cup PEG SCH ×2 (08:46→21:01)
[2021-11-26] MEDS: magnesium hydroxide 30ml (MOM) UD suspension PEG SCH (08:46)
[2021-11-26] MEDS: baclofen 10mg tablet PEG SCH ×2 (08:46→20:49)
[2021-11-26] MEDS: heparin, porcine 5000 units/ml vial SQ SCH ×2 (08:47→16:30)
[2021-11-26 11:00] VITALS: BP 132/89
[2021-11-26] MEDS: valproate sod 250mg/5ml UD oral syrup PEG SCH ×2 (11:03→21:01)
[2021-11-26] MEDS: levetiracetam 100mg/ml oral solution 5ml UD cup PEG SCH ×2 (11:04→21:01)
[2021-11-26] MEDS ORDERED: LACOSAMIDE PEG SCH (11:10)
[2021-11-26] MEDS: LACOSAMIDE PEG SCH ×2 (11:43→20:00)
--- NOTE | 2021-11-26 16:13 | NUR ---
RN TC: Per RN, DO requests transition to bolus feeds today. No documentation of TF intake outside one time 94ml since initiation yesterday and RN reports continuous feeds yet to reach goal at this time. GRV's WNL thus far per EMR. Bolus TF recs below; will monitor for pt tolerance and adjustment needs. Last CMP 11/25 would benefit from routine CMP if DO agreeable given new EN initiation yesterday to monitor for adjustment needs. Pt has had only small BM's since 11/06 however first enteral intake yesterday and routine colace started yesterday per EMR. RD d/w RN regarding signs of TF intolerance; if intolerance would benefit from return to continuous tube feeds. Recommendations: 1) Bolus TF per DO using Jevity 1.2 at 365ml bolus QID at 0800, 1200, 1600, and 2000. Initiate at 85ml bolus and advance 50ml per bolus to goal as tolerated. Will provide 1460ml volume, 1752 kcals, 81g protein, 1178ml free water 2) Additional water flush 60ml before/after each bolus; monitor serum Na for adjustment needs currently 136 mmol/L this AM 3) Monitor for bolus feeds tolerance and adjustment needs 4) PALB Q /; daily scaled wts 5) routine bowel retirement BOLUS TF RECS 1. Bolus Feed via G-tube QID using Jevity 1.5 or equivalent w/ goal rate of 330ml/bolus. Start at 130ml bolus and advance by 50ml/bolus as tolerated to goal rate. Feed at 0800, 1200 1600, 1999. 2. Additional 75ml water flush before and after each bolus feed 3. Outpatient RD to titrate TF formula, rate, and free water and make adjustments as appropriate. Addendum: 11/26/21 at [address] Amended: Links added.
[2021-11-26 18:00] VITALS: BP 141/80
--- NOTE | 2021-11-26 18:34 | NUR ---
Problems reprioritized. Patient report given, questions answered & plan of care reviewed with CHRISTINE Moss.
--- NOTE | 2021-11-26 18:36 | NUR ---
Patient in room [facility] 347. I have received report from Osvaldo KING and had the opportunity to ask questions and assume patient care.
--- NOTE | 2021-11-26 18:42 | NUR ---
Problems reprioritized. Patient report given, questions answered & plan of care reviewed with CHRISTINE Moss.
--- NOTE | 2021-11-26 19:22 | NUR ---
[facility] with [facility], and assessment,
[2021-11-27] VITALS: BP 123/78
[2021-11-27] MEDS: heparin, porcine 5000 units/ml vial SQ SCH ×4 (00:09→23:44)
--- NOTE | 2021-11-27 06:28 | NUR ---
Patient in room [facility] 347. I have received report from CHRISTINE Moss and had the opportunity to ask questions and assume patient care. Patient resing comfortably, in no apparent distress.
--- NOTE | 2021-11-27 06:30 | NUR ---
Patient in room [facility] 347. I have received report from CHRISTINE Moss and had the opportunity to ask questions and assume patient care.
[2021-11-27 06:57] LABS: BASOPHILS # (AUTO) 0.1 X10'3 (0-0.2); BASOPHILS % (AUTO) 1.4 % (0-1); EOSINOPHILS # (AUTO) 0.1 X10'3 (0-0.9); EOSINOPHILS % (AUTO) 2.3 % (0-6); HEMATOCRIT 37.2 % (42.0-52.0); HEMOGLOBIN 12.4 g/dl (14.0-17.9); LYMPHOCYTES # (AUTO) 1.8 X10'3 (1.1-4.8); LYMPHOCYTES % (AUTO) 30.5 % (21-51); MEAN CORPUSCULAR HEMOGLOBIN 31.3 PG (27.0-31.0); MEAN CORPUSCULAR HGB CONC 33.2 g/dL (33.0-36.5); MEAN CORPUSCULAR VOLUME 94.1 FL (78-98); MEAN PLATELET VOLUME 9.7 FL (7.4-10.4); MONOCYTES # (AUTO) 0.8 X10'3 (0-0.9); MONOCYTES % (AUTO) 12.8 % (2-12); NEUTROPHILS # (AUTO) 3.2 X10'3 (1.8-7.7); PLATELET COUNT 168 X10'3 (140-440); RED BLOOD COUNT 3.96 X10'6 (4.70-6.10); RED CELL DISTRIBUTION WIDTH 17.5 % (11.5-14.5)
[2021-11-27 07:10] LABS: ALANINE AMINOTRANSFERASE 26 U/L (12-78); ALBUMIN/GLOBULIN RATIO 0.9 (1.1-1.5); ALKALINE PHOSPHATASE 86 IU/L (46-116); ANION GAP 7 (8-16); ASPARTATE AMINO TRANSFERASE 18 U/L (10-37); BILIRUBIN,TOTAL 0.3 MG/DL (0.1-1.0); BLOOD UREA NITROGEN 11 MG/DL (7-18); BUN/CREATININE RATIO 31.4 (5.4-32.0); CALCIUM 8.9 MG/DL (8.5-10.1); CHLORIDE 99 MMOL/L (99-107); CREATININE 0.35 MG/DL (0.60-1.10); GLUCOSE 92 MG/DL (70-104); POTASSIUM 4.2 MMOL/L (3.5-5.1); SODIUM 138 MMOL/L (135-145); TOTAL CARBON DIOXIDE 31.7 MMOL/L (24-32); TOTAL PROTEIN 6.4 G/DL (6.4-8.2); eGFR > 90 ML/MIN
[2021-11-27 08:00] VITALS: BP 117/85
[2021-11-27] MEDS: K and/or MAG REPLACEMENT MC SCH ×2 (08:00→20:00)
[2021-11-27] MEDS: levetiracetam 100mg/ml oral solution 5ml UD cup PEG SCH ×2 (08:35→20:40)
[2021-11-27] MEDS: lactobacillus rhamnosus 10,000 MMU CELLS/CAPSULE PEG SCH (08:36)
[2021-11-27] MEDS: magnesium hydroxide 30ml (MOM) UD suspension PEG SCH (08:36)
[2021-11-27] MEDS: lansoprazole 15mg solutab PEG SCH (08:36)
[2021-11-27] MEDS: valproate sod 250mg/5ml UD oral syrup PEG SCH ×2 (08:36→20:40)
[2021-11-27] MEDS: docusate sodium 100mg/10ml UD cup PEG SCH ×2 (08:36→20:39)
[2021-11-27] MEDS: cholecalciferol (vitamin D3) 400 unit (10mcg) tablet PEG SCH (08:37)
[2021-11-27] MEDS: ascorbic acid 500mg tablet PEG SCH ×2 (08:37→20:40)
[2021-11-27] MEDS: gabapentin 300mg capsule PEG SCH ×3 (08:37→20:41)
[2021-11-27] MEDS: baclofen 10mg tablet PEG SCH ×2 (08:37→20:40)
[2021-11-27] MEDS: LACOSAMIDE PEG SCH ×2 (09:34→20:46)
--- NOTE | 2021-11-27 17:32 | NUR ---
1700; did not increase bolus feeding by 50 mL. Pt not absorbing feeding at this time. Amount due 235 mL. Amount given 145 mL. Continue at 145 mL next bolus feeding. Addendum: 11/27/21 at 1817 by Junior Barker RN Continue to goal of 235ml for next feeding
[2021-11-27 18:00] VITALS: BP 138/89
--- NOTE | 2021-11-27 18:42 | NUR ---
Problems reprioritized. Patient report given, questions answered & plan of care reviewed with CHRISTINE Moss.
--- NOTE | 2021-11-27 18:47 | NUR ---
I agree with student Joann's assessments, charting, and report given to CHRISTINE Moss
[2021-11-28] VITALS: BP 126/81
[2021-11-28 06:34] LABS: BASOPHILS # (AUTO) 0.1 X10'3 (0-0.2); EOSINOPHILS # (AUTO) 0.1 X10'3 (0-0.9); EOSINOPHILS % (AUTO) 1.4 % (0-6); HEMATOCRIT 36.3 % (42.0-52.0); HEMOGLOBIN 12.1 g/dl (14.0-17.9); LYMPHOCYTES # (AUTO) 1.8 X10'3 (1.1-4.8); LYMPHOCYTES % (AUTO) 30.6 % (21-51); MEAN CORPUSCULAR HEMOGLOBIN 31.3 PG (27.0-31.0); MEAN CORPUSCULAR HGB CONC 33.3 g/dL (33.0-36.5); MEAN CORPUSCULAR VOLUME 93.7 FL (78-98); MEAN PLATELET VOLUME 9.5 FL (7.4-10.4); MONOCYTES # (AUTO) 0.7 X10'3 (0-0.9); MONOCYTES % (AUTO) 12.4 % (2-12); NEUTROPHILS # (AUTO) 3.2 X10'3 (1.8-7.7); NEUTROPHILS % (AUTO) 54.6 % (42-75); PLATELET COUNT 188 X10'3 (140-440); RED BLOOD COUNT 3.88 X10'6 (4.70-6.10); RED CELL DISTRIBUTION WIDTH 17.3 % (11.5-14.5); WHITE BLOOD COUNT 5.9 X10'3 (4.5-11.0)
--- NOTE | 2021-11-28 06:41 | NUR ---
Problems reprioritized. Patient report given, questions answered & plan of care reviewed with Shavonne KING.
[2021-11-28 06:42] LABS: ALANINE AMINOTRANSFERASE 21 U/L (12-78); ALBUMIN 2.9 G/DL (3.4-5.0); ALBUMIN/GLOBULIN RATIO 0.9 (1.1-1.5); ALKALINE PHOSPHATASE 81 IU/L (46-116); ANION GAP 6 (8-16); ASPARTATE AMINO TRANSFERASE 15 U/L (10-37); BILIRUBIN,TOTAL 0.3 MG/DL (0.1-1.0); BLOOD UREA NITROGEN 11 MG/DL (7-18); BUN/CREATININE RATIO 32.4 (5.4-32.0); CALCIUM 8.5 MG/DL (8.5-10.1); CHLORIDE 100 MMOL/L (99-107); CREATININE 0.34 MG/DL (0.60-1.10); GLUCOSE 95 MG/DL (70-104); POTASSIUM 4.3 MMOL/L (3.5-5.1); SODIUM 138 MMOL/L (135-145); TOTAL CARBON DIOXIDE 31.7 MMOL/L (24-32); eGFR > 90 ML/MIN
[2021-11-28 07:22] VITALS: BP 133/83
[2021-11-28] MEDS: K and/or MAG REPLACEMENT MC SCH ×2 (08:00→19:45)
[2021-11-28] MEDS: docusate sodium 100mg/10ml UD cup PEG SCH ×2 (08:00→19:56)
[2021-11-28] MEDS: LACOSAMIDE PEG SCH ×2 (08:00→20:00)
[2021-11-28] MEDS: magnesium hydroxide 30ml (MOM) UD suspension PEG SCH (08:00)
[2021-11-28] MEDS: valproate sod 250mg/5ml UD oral syrup PEG SCH ×2 (09:32→19:56)
[2021-11-28] MEDS: levetiracetam 100mg/ml oral solution 5ml UD cup PEG SCH ×2 (09:33→19:57)
[2021-11-28] MEDS: ascorbic acid 500mg tablet PEG SCH ×2 (09:33→19:57)
[2021-11-28] MEDS: gabapentin 300mg capsule PEG SCH ×3 (09:33→20:00)
[2021-11-28] MEDS: baclofen 10mg tablet PEG SCH ×2 (09:34→19:57)
[2021-11-28] MEDS: cholecalciferol (vitamin D3) 400 unit (10mcg) tablet PEG SCH (09:34)
[2021-11-28] MEDS: lactobacillus rhamnosus 10,000 MMU CELLS/CAPSULE PEG SCH (09:34)
[2021-11-28] MEDS: lansoprazole 15mg solutab PEG SCH (09:34)
[2021-11-28] MEDS: heparin, porcine 5000 units/ml vial SQ SCH ×3 (09:43→23:59)
[2021-11-28 11:42] VITALS: BP 118/79
[2021-11-28 18:00] VITALS: BP 123/77
--- NOTE | 2021-11-28 18:43 | NUR ---
Report given to Jamari KING, all questions answered. Patient resting comfortably at this time.
[2021-11-28 18:50] VITALS: BP 93/57
[2021-11-28 23:56] VITALS: BP 129/92
--- NOTE | 2021-11-29 06:26 | NUR ---
Problems reprioritized. Patient report given, questions answered & plan of care reviewed with FAUSTINA. Addendum: 11/29/21 at 0626 by Dusty Farley RN Amended: Links added.
--- NOTE | 2021-11-29 06:48 | NUR ---
Patient in room [facility] 347. I have received report from Jamari KING and had the opportunity to ask questions and assume patient care.
[2021-11-29 06:56] LABS: BASOPHILS % (AUTO) 0.6 % (0-1); EOSINOPHILS # (AUTO) 0.1 X10'3 (0-0.9); EOSINOPHILS % (AUTO) 1.6 % (0-6); LYMPHOCYTES # (AUTO) 1.7 X10'3 (1.1-4.8); LYMPHOCYTES % (AUTO) 27.7 % (21-51); MEAN CORPUSCULAR HEMOGLOBIN 31.4 PG (27.0-31.0); MEAN CORPUSCULAR HGB CONC 33.5 g/dL (33.0-36.5); MEAN CORPUSCULAR VOLUME 93.8 FL (78-98); MEAN PLATELET VOLUME 8.8 FL (7.4-10.4); MONOCYTES # (AUTO) 0.8 X10'3 (0-0.9); MONOCYTES % (AUTO) 12.8 % (2-12); NEUTROPHILS # (AUTO) 3.6 X10'3 (1.8-7.7); NEUTROPHILS % (AUTO) 57.3 % (42-75); PLATELET COUNT 187 X10'3 (140-440); RED BLOOD COUNT 3.84 X10'6 (4.70-6.10); RED CELL DISTRIBUTION WIDTH 17.4 % (11.5-14.5); WHITE BLOOD COUNT 6.2 X10'3 (4.5-11.0)
--- NOTE | 2021-11-29 06:57 | NUR ---
Patient in room [facility]LE[facility] 347B. I have received report from CHRISTINE JIMÉNEZ and had the opportunity to ask questions and assume patient care.
[2021-11-29 07:18] LABS: ALANINE AMINOTRANSFERASE 19 U/L (12-78); ALBUMIN 2.9 G/DL (3.4-5.0); ALBUMIN/GLOBULIN RATIO 0.9 (1.1-1.5); ALKALINE PHOSPHATASE 76 IU/L (46-116); ANION GAP 5 (8-16); ASPARTATE AMINO TRANSFERASE 12 U/L (10-37); BILIRUBIN,TOTAL 0.2 MG/DL (0.1-1.0); BLOOD UREA NITROGEN 11 MG/DL (7-18); BUN/CREATININE RATIO 32.4 (5.4-32.0); CALCIUM 8.6 MG/DL (8.5-10.1); CHLORIDE 101 MMOL/L (99-107); CREATININE 0.34 MG/DL (0.60-1.10); GLUCOSE 97 MG/DL (70-104); POTASSIUM 4.8 MMOL/L (3.5-5.1); PREALBUMIN 16.8 MG/DL (19-36); SODIUM 137 MMOL/L (135-145); TOTAL CARBON DIOXIDE 31.5 MMOL/L (24-32); eGFR > 90 ML/MIN
[2021-11-29 07:21] VITALS: BP 120/87
[2021-11-29] MEDS: LACOSAMIDE PEG SCH ×2 (08:00→19:44)
[2021-11-29] MEDS: K and/or MAG REPLACEMENT MC SCH ×2 (08:00→19:39)
[2021-11-29] MEDS: lactobacillus rhamnosus 10,000 MMU CELLS/CAPSULE PEG SCH (09:47)
[2021-11-29] MEDS: lansoprazole 15mg solutab PEG SCH (09:48)
[2021-11-29] MEDS: baclofen 10mg tablet PEG SCH ×2 (09:48→19:43)
[2021-11-29] MEDS: gabapentin 300mg capsule PEG SCH ×3 (09:48→21:02)
[2021-11-29] MEDS: cholecalciferol (vitamin D3) 400 unit (10mcg) tablet PEG SCH (09:48)
[2021-11-29] MEDS: ascorbic acid 500mg tablet PEG SCH ×2 (09:48→19:44)
[2021-11-29] MEDS: docusate sodium 100mg/10ml UD cup PEG SCH ×2 (09:49→19:39)
[2021-11-29] MEDS: valproate sod 250mg/5ml UD oral syrup PEG SCH ×2 (09:49→19:43)
[2021-11-29] MEDS: magnesium hydroxide 30ml (MOM) UD suspension PEG SCH (09:49)
[2021-11-29] MEDS: levetiracetam 100mg/ml oral solution 5ml UD cup PEG SCH ×2 (09:49→19:43)
[2021-11-29] MEDS: heparin, porcine 5000 units/ml vial SQ SCH ×4 (09:50→23:41)
[2021-11-29 11:00] VITALS: BP 123/72
--- NOTE | 2021-11-29 12:25 | NUR ---
Reassessment: Pt continues on bolus feeding QID though limited documentation of how much currently being given. Noted on 11/27 that feeding was not increased as pt was "not absorbing feeding" though documented GRV at the time was WNL. Recommend continuing to advance to goal of 365ml/bolus as tolerated. LBM 11/28 receiving routine colace. No change to recommendations at this time, will continue to monitor. Recommendations: 1) Bolus TF per DO using Jevity 1.2 at 365ml bolus QID at 0800, 1200, 1600, and 2000. Initiate at 85ml bolus and advance 50ml per bolus to goal as tolerated. Will provide 1460ml volume, 1752 kcals, 81g protein, 1178ml free water 2) Additional water flush 60ml before/after each bolus; monitor serum Na for adjustment needs currently 136 mmol/L this AM 3) Monitor for bolus feeds tolerance and adjustment needs 4) PALB Q /; daily scaled wts 5) routine bowel [facility] BOLUS TF RECS 1. Bolus Feed via G-tube QID using Jevity 1.5 or equivalent w/ goal rate of 330ml/bolus. Start at 130ml bolus and advance by 50ml/bolus as tolerated to goal rate. Feed at 0800, 1200 1600, 1999. 2. Additional 75ml water flush before and after each bolus feed 3. Outpatient RD to titrate TF formula, rate, and free water and make adjustments as appropriate. Addendum: 11/29/21 at [address] Amended: Links added.
--- NOTE | 2021-11-29 18:20 | NUR ---
Problems reprioritized. Patient report given, questions answered & plan of care reviewed with CHRISTINE JIMÉNEZ.
[2021-11-29 19:00] VITALS: BP 133/87
[2021-11-30 00:16] VITALS: BP 119/69
--- NOTE | 2021-11-30 06:00 | NUR ---
Patient in room [facility] 347. I have received report from Jamari KING and had the opportunity to ask questions and assume patient care.
[2021-11-30 06:08] LABS: BASOPHILS % (AUTO) 0.8 % (0-1); EOSINOPHILS # (AUTO) 0.1 X10'3 (0-0.9); HEMATOCRIT 36.5 % (42.0-52.0); HEMOGLOBIN 12.2 g/dl (14.0-17.9); LYMPHOCYTES # (AUTO) 1.9 X10'3 (1.1-4.8); LYMPHOCYTES % (AUTO) 31.3 % (21-51); MEAN CORPUSCULAR HEMOGLOBIN 31.5 PG (27.0-31.0); MEAN CORPUSCULAR HGB CONC 33.5 g/dL (33.0-36.5); MEAN CORPUSCULAR VOLUME 94.3 FL (78-98); MEAN PLATELET VOLUME 9.4 FL (7.4-10.4); MONOCYTES # (AUTO) 0.8 X10'3 (0-0.9); MONOCYTES % (AUTO) 13.7 % (2-12); NEUTROPHILS # (AUTO) 3.2 X10'3 (1.8-7.7); NEUTROPHILS % (AUTO) 52.2 % (42-75); PLATELET COUNT 196 X10'3 (140-440); RED BLOOD COUNT 3.87 X10'6 (4.70-6.10); RED CELL DISTRIBUTION WIDTH 17.3 % (11.5-14.5); WHITE BLOOD COUNT 6.1 X10'3 (4.5-11.0)
--- NOTE | 2021-11-30 06:09 | NUR ---
Problems reprioritized. Patient report given, questions answered & plan of care reviewed with Addie. Addendum: 11/30/21 at 0609 by Dusty Farley RN Amended: Links added.
[2021-11-30 06:29] LABS: ALANINE AMINOTRANSFERASE 21 U/L (12-78); ALBUMIN/GLOBULIN RATIO 0.9 (1.1-1.5); ANION GAP 5 (8-16); ASPARTATE AMINO TRANSFERASE 11 U/L (10-37); BILIRUBIN,TOTAL 0.2 MG/DL (0.1-1.0); BLOOD UREA NITROGEN 10 MG/DL (7-18); BUN/CREATININE RATIO 52.6 (5.4-32.0); CALCIUM 8.7 MG/DL (8.5-10.1); CHLORIDE 101 MMOL/L (99-107); CREATININE 0.19 MG/DL (0.60-1.10); GLUCOSE 93 MG/DL (70-104); POTASSIUM 4.7 MMOL/L (3.5-5.1); SODIUM 137 MMOL/L (135-145); TOTAL CARBON DIOXIDE 30.7 MMOL/L (24-32); TOTAL PROTEIN 6.4 G/DL (6.4-8.2); eGFR > 90 ML/MIN
[2021-11-30 07:02] VITALS: BP 132/84
[2021-11-30] MEDS: K and/or MAG REPLACEMENT MC SCH (08:00)
[2021-11-30] MEDS: magnesium hydroxide 30ml (MOM) UD suspension PEG SCH (08:00)
[2021-11-30] MEDS: docusate sodium 100mg/10ml UD cup PEG SCH (08:00)
[2021-11-30] MEDS: gabapentin 300mg capsule PEG SCH ×2 (08:39→12:34)
[2021-11-30] MEDS: lansoprazole 15mg solutab PEG SCH (08:39)
[2021-11-30] MEDS: levetiracetam 100mg/ml oral solution 5ml UD cup PEG SCH (08:39)
[2021-11-30] MEDS: valproate sod 250mg/5ml UD oral syrup PEG SCH (08:39)
[2021-11-30] MEDS: lactobacillus rhamnosus 10,000 MMU CELLS/CAPSULE PEG SCH (08:39)
[2021-11-30] MEDS: baclofen 10mg tablet PEG SCH (08:39)
[2021-11-30] MEDS: cholecalciferol (vitamin D3) 400 unit (10mcg) tablet PEG SCH (08:40)
[2021-11-30] MEDS: LACOSAMIDE PEG SCH (08:40)
[2021-11-30] MEDS: heparin, porcine 5000 units/ml vial SQ SCH (08:40)
[2021-11-30] MEDS: ascorbic acid 500mg tablet PEG SCH (08:40)
[2021-11-30 11:13] VITALS: BP 119/89
--- NOTE | 2021-11-30 14:41 | NUR ---
Pt discharged with staff from recieving facility in pt's own wheel chair. Report given to Carli at facility
[2021-11-30] MEDS ORDERED: LACOSAMIDE (Vimpat) 100mg/10ml (10 MG/ML) oral UD solution PEG SCH (20:00)
== END 2021-11-30 14:40 | disposition home health service (06) | DRG 710 ==
LOC: ER 14:23 → UNDOADMIN 18:13 → ED HOLD 18:13 → CANBEDREQ 21:14 → ED HOLD 21:19 → ORTHO 4S 11-06 00:10 → ED HOLD 11-06 00:10 → ORTHO 4S 11-06 22:34 → SUR 3N 11-22 01:43
PROVIDERS: ADMIT Internal Medicine; ATTEND Internal Medicine
PROC: XW033E5 Introduction of Remdesivir Anti-infective into Peripheral Vein, Percutaneous Approach, New Technology Group 5 (ICD-10-PCS; 2021-11-06)
PROC: 02HV33Z Insertion of Infusion Device into Superior Vena Cava, Percutaneous Approach (ICD-10-PCS; 2021-11-19)
PROC: B548ZZA Ultrasonography of Superior Vena Cava, Guidance (ICD-10-PCS; 2021-11-19)
PROC: 0DH60UZ Insertion of Feeding Device into Stomach, Open Approach (ICD-10-PCS; principal; 2021-11-23 11:45)
DX: A41.89 Other specified sepsis (principal); J12.82 Pneumonia due to coronavirus disease 2019; J69.0 Pneumonitis due to inhalation of food and vomit; J96.01 Acute respiratory failure with hypoxia; I95.9 Hypotension, unspecified; J90 Pleural effusion, not elsewhere classified; U07.1 COVID-19; Z66 Do not resuscitate; G40.909 Epilepsy, unspecified, not intractable, without status epilepticus; G80.9 Cerebral palsy, unspecified; K56.41 Fecal impaction; R13.10 Dysphagia, unspecified; M25.452 Effusion, left hip; M25.451 Effusion, right hip; Z88.1 Allergy status to other antibiotic agents; Z88.2 Allergy status to sulfonamides; Z88.8 Allergy status to other drugs, medicaments and biological substances; Z79.899 Other long term (current) drug therapy; E87.6 Hypokalemia
CPT/HCPCS: 36000; 36415; 36569; 70450; 71045; 71250; 74018; 74176; 76604; 76937; 76942; 80048; 80053; 81001; 82948; 83605; 83735; 84100; 84134; 84145; 84478; 85007; 85008; 85025; 85379; 86140; 87040; 87077; 87081; 87186; 87635; 92508; 92616; 93005; 96361; 96365; 96375; 99285; A4618; A6402; A7000; B4087; C1751; C9113; C9254; C9803; G0378; J0131; J0456; J0694; J1100; J1170; J1644; J1885; J1953; J1956; J2250; J2270; J2704; J2710; J3010; J3480; J3490; J7030; J7042; J7060; J7120; Q9963

== ENCOUNTER 2021-12-14 16:24 | Inpatient (IN) | payer MEDICAID ==
[~2021-12-14] VITALS: Ht 170.2 cm; Wt 63.0 kg
[~2021-12-14 16:24] MED LIST changes: -ACET-812 PO; -ACET5SOL2 PO; +ALBU8.5H17 IH; -BARRIER PR; -CARB15DR91 LEFT EAR; -CARB15DR91 RIGHT EAR; -CEFD250S3 PO; +CHOL400T32 PO; +DIME118C3 RC; +LACO200T2 PO; -LEVE10002 PO; -NA P133E RC; +POTA8TAB69 PO; -[UNRECOGNIZED DRUG - OTHER]; -[UNRECOGNIZED DRUG - OTHER] PR
[2021-12-14] MEDS ORDERED: normal saline 1000ML IV soln IV ONE (16:40)
[2021-12-14 17:07] LABS: BASOPHILS # (AUTO) 0.1 X10'3 (0-0.2); BASOPHILS % (AUTO) 1.3 % (0-1); EOSINOPHILS # (AUTO) 0.1 X10'3 (0-0.9); EOSINOPHILS % (AUTO) 0.7 % (0-6); HEMATOCRIT 39.7 % (42.0-52.0); HEMOGLOBIN 13.1 g/dl (14.0-17.9); LYMPHOCYTES # (AUTO) 2.1 X10'3 (1.1-4.8); LYMPHOCYTES % (AUTO) 30.6 % (21-51); MEAN CORPUSCULAR HEMOGLOBIN 30.9 PG (27.0-31.0); MEAN CORPUSCULAR VOLUME 93.4 FL (78-98); MEAN PLATELET VOLUME 8.8 FL (7.4-10.4); MONOCYTES # (AUTO) 0.7 X10'3 (0-0.9); MONOCYTES % (AUTO) 9.8 % (2-12); NEUTROPHILS % (AUTO) 57.6 % (42-75); PLATELET COUNT 429 X10'3 (140-440); RED BLOOD COUNT 4.25 X10'6 (4.70-6.10); RED CELL DISTRIBUTION WIDTH 17.1 % (11.5-14.5); WHITE BLOOD COUNT 6.9 X10'3 (4.5-11.0)
[2021-12-14 17:44] LABS: CLARITY,URINE CLOUDY (Clear); COLOR,URINE YELLOW (Yellow); GLUCOSE, URINE NEGATIVE (Neg); KETONES,URINE NEGATIVE (Neg); LEUKOCYTE ESTERASE ,URINE NEGATIVE (Neg); NITRITES, URINE NEGATIVE (Neg); OCCULT BLOOD,URINE NEGATIVE (Neg); PROTEIN,URINE TRACE mg/dl (Neg)
[2021-12-14] MEDS ORDERED: normal saline 1000ML IV soln IVB ONE (17:45)
[2021-12-14 17:46] LABS: UA COLLECTION TYPE STRAIGHT CATH
[2021-12-14 17:49] LABS: MUCUS STRANDS MODERATE /LPF (Neg); SQUAMOUS EPITHELIAL CELL,UR FEW /LPF (FEW)
[2021-12-14 17:50] LABS: BACTERIA,URINE 1+ /HPF (Neg); RBC,URINE 0-2 /HPF (0-2)
[2021-12-14] MEDS ORDERED: CefTRIAXone 2gm/D5W 50ml BAG 50 ML IV ONE (18:30)
[2021-12-14] MEDS ORDERED: LORazepam 2 mg/ml vial IV ONE (18:50)
[2021-12-14 19:35] LABS: ALANINE AMINOTRANSFERASE 40 U/L (12-78); ALBUMIN 3.6 G/DL (3.4-5.0); ALKALINE PHOSPHATASE 131 IU/L (46-116); ANION GAP 12 (8-16); ASPARTATE AMINO TRANSFERASE 38 U/L (10-37); BILIRUBIN,TOTAL 0.3 MG/DL (0.1-1.0); BLOOD UREA NITROGEN 11 MG/DL (7-18); BUN/CREATININE RATIO 37.9 (5.4-32.0); CHLORIDE 102 MMOL/L (99-107); CREATININE 0.29 MG/DL (0.60-1.10); GLUCOSE 73 MG/DL (70-104); MAGNESIUM 2.1 MG/DL (1.5-2.4); SODIUM 138 MMOL/L (135-145); TOTAL CARBON DIOXIDE 23.8 MMOL/L (24-32); TOTAL PROTEIN 7.1 G/DL (6.4-8.2); VALPROATE 24 UG/ML (50-100); eGFR > 90 ML/MIN
[2021-12-14 19:37] LABS: POTASSIUM 4.5 MMOL/L (3.5-5.1)
[2021-12-14] MEDS ORDERED: valproate sod inj 500 MG in normal saline 50ml IV soln 50 ML IV ONE (21:10)
[2021-12-14] MEDS ORDERED: WATER IV ONE (21:29)
[2021-12-14] MEDS ORDERED: DEXTROSE 5% IV ONE (21:29)
[2021-12-14] MEDS ORDERED: VALPROATE SOD IV ONE (21:29)
[2021-12-14] MEDS: normal saline 1000ml 1,000 ML IV SCH (23:00)
[2021-12-14] MEDS ORDERED: ondansetron/PF 4mg/2ml inj IV PRN (23:00)
--- NOTE | 2021-12-14 23:25 | NUR ---
ATTEMPTED TO CALL NURSE ORDER WORKER AT [phone] TO OBTAIN PEG TUBE FEEDING FOR ADMIT ORDERS. VM NOT SET UP AND WILL TRY AGAIN
[2021-12-14] MEDS ORDERED: LEVE500T PO (23:28)
[2021-12-14] MEDS ORDERED: DEXL60CA3 PO (23:28)
[2021-12-14] MEDS ORDERED: GABA250S2 PO (23:28)
[2021-12-14] MEDS ORDERED: VALP250S3 PO (23:30)
[2021-12-14] MEDS ORDERED: LEVE100S PO (23:30)
[2021-12-14] MEDS ORDERED: LACO10SO3 PO (23:35)
--- NOTE | 2021-12-14 23:55 | NUR ---
client support professional nurse contacted. diet orders placed. patient recieves jevity 1.5, 365ml x4/day per dinya rn
[2021-12-15] MEDS ORDERED: albuterol 2.5 MG/3 ML nebule NEB PRN (00:20)
[2021-12-15 02:02] LABS: BASOPHILS # (AUTO) 0.1 X10'3 (0-0.2); EOSINOPHILS # (AUTO) 0.1 X10'3 (0-0.9); EOSINOPHILS % (AUTO) 1.6 % (0-6); HEMATOCRIT 35.9 % (42.0-52.0); HEMOGLOBIN 11.8 g/dl (14.0-17.9); LYMPHOCYTES % (AUTO) 32.9 % (21-51); MEAN CORPUSCULAR HEMOGLOBIN 31.3 PG (27.0-31.0); MEAN CORPUSCULAR HGB CONC 32.9 g/dL (33.0-36.5); MEAN CORPUSCULAR VOLUME 95.1 FL (78-98); MEAN PLATELET VOLUME 8.9 FL (7.4-10.4); MONOCYTES # (AUTO) 0.6 X10'3 (0-0.9); MONOCYTES % (AUTO) 9.4 % (2-12); NEUTROPHILS # (AUTO) 3.3 X10'3 (1.8-7.7); NEUTROPHILS % (AUTO) 55.1 % (42-75); PLATELET COUNT 328 X10'3 (140-440); RED BLOOD COUNT 3.78 X10'6 (4.70-6.10); RED CELL DISTRIBUTION WIDTH 16.8 % (11.5-14.5); WHITE BLOOD COUNT 6.1 X10'3 (4.5-11.0)
[2021-12-15 02:17] LABS: ALANINE AMINOTRANSFERASE 26 U/L (12-78); ALBUMIN 2.9 G/DL (3.4-5.0); ALKALINE PHOSPHATASE 109 IU/L (46-116); ANION GAP 10 (8-16); ASPARTATE AMINO TRANSFERASE 23 U/L (10-37); BILIRUBIN,TOTAL 0.2 MG/DL (0.1-1.0); BLOOD UREA NITROGEN 6 MG/DL (7-18); BUN/CREATININE RATIO 23.1 (5.4-32.0); CALCIUM 8.1 MG/DL (8.5-10.1); CHLORIDE 107 MMOL/L (99-107); CREATININE 0.26 MG/DL (0.60-1.10); GLUCOSE 83 MG/DL (70-104); POTASSIUM 3.9 MMOL/L (3.5-5.1); SODIUM 140 MMOL/L (135-145); TOTAL CARBON DIOXIDE 22.6 MMOL/L (24-32); TOTAL PROTEIN 5.9 G/DL (6.4-8.2); eGFR > 90 ML/MIN
--- NOTE | 2021-12-15 08:46 | NUR ---
Received report from CHRISTINE Burnette. Awaiting patient arrival to room 357A.
[2021-12-15 08:56] VITALS: BP 126/75
--- NOTE | 2021-12-15 10:23 | NUR ---
TF consult: Pt admit for toxic encephalopathy. Pt s/p G-tube placement 11/23 at previous admit. Noted current documented wt of 60 kg is not scaled and pt with scaled wt hx range of 62.2-70.3 kg 11/16-11/30 at previous admit. IBW was used to calculate estimated nutrient needs this admit given unknown actual weight, see TF recommendations below. Pt just admit today, no documentation of LBM and pending physical assessment. Will continue to follow closely. Recommendations: 1) Bolus TF via G-tube QID at 0800, 1200, 1600, and 1999 using [employer] 1.2 with 365 mL goal. To provide 1460 mL volume, 1752 kcal, 81 g protein, 1178 mL water. Okay to begin at goal rate as pt previously receiving bolus TF 2) Additional 60 mL water flush before and after each bolus feed; monitor serum Na for adjustment needs 3) PALB q Monday/ 4) Daily scaled weights 5) Routine bowel care Addendum: 12/15/21 at [address] Amended: Links added.
--- NOTE | 2021-12-15 10:55 | NUR ---
No tube feed started. Awaiting new orders from Nutritional Consult from [facility]. Dr. Micheal abebe to start giving meds through peg tube.
[2021-12-15] MEDS: levetiracetam 100mg/ml oral solution 5ml UD cup PEG SCH ×2 (11:05→20:39)
[2021-12-15] MEDS: LACOSAMIDE (Vimpat) 100mg/10ml (10 MG/ML) oral UD solution PEG SCH ×2 (11:06→20:45)
[2021-12-15] MEDS: valproate sod 250mg/5ml UD oral syrup PEG SCH ×2 (11:06→20:46)
[2021-12-15] MEDS: docusate sodium 100mg/10ml UD cup PEG SCH ×2 (11:06→20:39)
[2021-12-15] MEDS: POTASSIUM CHLORIDE 20 MEQ/15 ML oral solution PEG SCH (11:06)
[2021-12-15] MEDS: lactobacillus rhamnosus 10,000 MMU CELLS/CAPSULE PEG SCH (11:07)
[2021-12-15] MEDS: ascorbic acid 500mg tablet PEG SCH ×2 (11:07→20:40)
[2021-12-15] MEDS: baclofen 10mg tablet PEG SCH ×2 (11:07→20:40)
[2021-12-15] MEDS: lansoprazole 15mg solutab PEG SCH (11:07)
[2021-12-15] MEDS: cholecalciferol (vitamin D3) 400 unit (10mcg) tablet PEG SCH (11:07)
[2021-12-15] MEDS: heparin, porcine 5000 units/ml vial SQ SCH ×2 (11:08→20:48)
[2021-12-15 13:02] VITALS: BP 120/74
[2021-12-15] MEDS ORDERED: dextrose 50%-water 50ml dispensing syringe IV PRN ×2 (15:15)
[2021-12-15] MEDS ORDERED: glucagon, human recombinant 1mg kit SUBCUT PRN (15:15)
[2021-12-15] MEDS ORDERED: DEXTROSE 15 GM of carb/4 tabs (each vial/BOTTLE has 4 tablets) PO PRN ×2 (15:15)
[2021-12-15] MEDS ORDERED: insulin Lispro (HumaLOG) vial - multi-dose SQ SCH (15:15)
--- NOTE | 2021-12-15 18:37 | NUR ---
Problems reprioritized. Patient report given, questions answered & plan of care reviewed with CHRISTINE Givens.
[2021-12-15 20:00] VITALS: BP 109/68
[2021-12-15] MEDS: insulin glargine (Lantus) pen - multi-dose SQ SCH (21:00)
[2021-12-15] MEDS: normal saline 1000ml 1,000 ML IV SCH (22:13)
[2021-12-16] VITALS: BP 115/81
--- NOTE | 2021-12-16 06:21 | NUR ---
Patient in room [facility] 357. I have received report from Harriet KING and had the opportunity to ask questions and assume patient care.
--- NOTE | 2021-12-16 06:30 | NUR ---
Patient in room [facility] 357. I have received report from CHRISTINE Givens and had the opportunity to ask questions and assume patient care.
[2021-12-16 06:38] LABS: BASOPHILS % (AUTO) 0.9 % (0-1); EOSINOPHILS # (AUTO) 0.2 X10'3 (0-0.9); EOSINOPHILS % (AUTO) 3.8 % (0-6); HEMATOCRIT 39.1 % (42.0-52.0); HEMOGLOBIN 12.9 g/dl (14.0-17.9); LYMPHOCYTES # (AUTO) 2.1 X10'3 (1.1-4.8); LYMPHOCYTES % (AUTO) 40.9 % (21-51); MEAN CORPUSCULAR HEMOGLOBIN 31.2 PG (27.0-31.0); MEAN CORPUSCULAR VOLUME 94.4 FL (78-98); MONOCYTES # (AUTO) 0.4 X10'3 (0-0.9); MONOCYTES % (AUTO) 8.5 % (2-12); NEUTROPHILS # (AUTO) 2.3 X10'3 (1.8-7.7); NEUTROPHILS % (AUTO) 45.9 % (42-75); PLATELET COUNT 325 X10'3 (140-440); RED BLOOD COUNT 4.14 X10'6 (4.70-6.10); RED CELL DISTRIBUTION WIDTH 17.3 % (11.5-14.5); WHITE BLOOD COUNT 5.1 X10'3 (4.5-11.0)
--- NOTE | 2021-12-16 06:40 | NUR ---
Problems reprioritized. Patient report given, questions answered & plan of care reviewed with Madai KING.
[2021-12-16 07:00] VITALS: BP 105/66
[2021-12-16 07:01] LABS: ALANINE AMINOTRANSFERASE 36 U/L (12-78); ALBUMIN 3.3 G/DL (3.4-5.0); ALBUMIN/GLOBULIN RATIO 0.9 (1.1-1.5); ALKALINE PHOSPHATASE 120 IU/L (46-116); ANION GAP 11 (8-16); ASPARTATE AMINO TRANSFERASE 22 U/L (10-37); BILIRUBIN,TOTAL 0.2 MG/DL (0.1-1.0); BLOOD UREA NITROGEN 7 MG/DL (7-18); BUN/CREATININE RATIO 18.9 (5.4-32.0); CALCIUM 8.9 MG/DL (8.5-10.1); CHLORIDE 103 MMOL/L (99-107); CREATININE 0.37 MG/DL (0.60-1.10); GLUCOSE 107 MG/DL (70-104); POTASSIUM 3.7 MMOL/L (3.5-5.1); PREALBUMIN 16.2 MG/DL (19-36); SODIUM 139 MMOL/L (135-145); TOTAL CARBON DIOXIDE 24.8 MMOL/L (24-32); eGFR > 90 ML/MIN
[2021-12-16] MEDS: lactobacillus rhamnosus 10,000 MMU CELLS/CAPSULE PEG SCH (08:48)
[2021-12-16] MEDS: docusate sodium 100mg/10ml UD cup PEG SCH ×2 (08:48→20:41)
[2021-12-16] MEDS: ascorbic acid 500mg tablet PEG SCH ×2 (08:49→20:40)
[2021-12-16] MEDS: levetiracetam 100mg/ml oral solution 5ml UD cup PEG SCH ×2 (08:49→20:41)
[2021-12-16] MEDS: valproate sod 250mg/5ml UD oral syrup PEG SCH ×2 (08:49→20:40)
[2021-12-16] MEDS: cholecalciferol (vitamin D3) 400 unit (10mcg) tablet PEG SCH (08:49)
[2021-12-16] MEDS: lansoprazole 15mg solutab PEG SCH (08:49)
[2021-12-16] MEDS: LACOSAMIDE (Vimpat) 100mg/10ml (10 MG/ML) oral UD solution PEG SCH ×2 (08:49→20:40)
[2021-12-16] MEDS: baclofen 10mg tablet PEG SCH ×2 (08:51→20:40)
[2021-12-16] MEDS: POTASSIUM CHLORIDE 20 MEQ/15 ML oral solution PEG SCH (08:51)
[2021-12-16] MEDS: heparin, porcine 5000 units/ml vial SQ SCH ×2 (08:51→20:41)
[2021-12-16 12:00] VITALS: BP 109/65
--- NOTE | 2021-12-16 13:50 | NUR ---
Noted pt with a low Anatoly of 10. Pt seen by wound care, per report pt with a healing right abdominal incision with a small area of shearing/friction to posterior scrotum that is red and remainder of skin appears free of breakdown. Patient's estimated nutrient needs are being met with TF. No adjustments warranted at this time. Will continue to follow. Addendum: 12/16/21 at [address] Amended: Links added.
[2021-12-16] MEDS: normal saline 1000ml 1,000 ML IV SCH (15:00)
--- NOTE | 2021-12-16 18:27 | NUR ---
Problems reprioritized. Patient report given, questions answered & plan of care reviewed with CRHISTINE Bundy.
[2021-12-16 20:00] VITALS: BP 108/60
[2021-12-16] MEDS: insulin glargine (Lantus) pen - multi-dose SQ SCH (21:00)
[2021-12-17] VITALS: BP 110/62
[2021-12-17 06:16] LABS: BASOPHILS # (AUTO) 0.1 X10'3 (0-0.2); BASOPHILS % (AUTO) 1.2 % (0-1); EOSINOPHILS # (AUTO) 0.2 X10'3 (0-0.9); EOSINOPHILS % (AUTO) 4.1 % (0-6); HEMATOCRIT 33.3 % (42.0-52.0); HEMOGLOBIN 11.2 g/dl (14.0-17.9); LYMPHOCYTES # (AUTO) 1.6 X10'3 (1.1-4.8); LYMPHOCYTES % (AUTO) 30.8 % (21-51); MEAN CORPUSCULAR HEMOGLOBIN 31.4 PG (27.0-31.0); MEAN CORPUSCULAR HGB CONC 33.6 g/dL (33.0-36.5); MEAN CORPUSCULAR VOLUME 93.3 FL (78-98); MEAN PLATELET VOLUME 9.4 FL (7.4-10.4); MONOCYTES # (AUTO) 0.4 X10'3 (0-0.9); MONOCYTES % (AUTO) 7.6 % (2-12); NEUTROPHILS # (AUTO) 2.9 X10'3 (1.8-7.7); NEUTROPHILS % (AUTO) 56.3 % (42-75); PLATELET COUNT 282 X10'3 (140-440); RED BLOOD COUNT 3.57 X10'6 (4.70-6.10); RED CELL DISTRIBUTION WIDTH 17.4 % (11.5-14.5); WHITE BLOOD COUNT 5.2 X10'3 (4.5-11.0)
[2021-12-17 06:30] LABS: ALANINE AMINOTRANSFERASE 24 U/L (12-78); ALBUMIN 2.8 G/DL (3.4-5.0); ALBUMIN/GLOBULIN RATIO 0.9 (1.1-1.5); ALKALINE PHOSPHATASE 95 IU/L (46-116); ANION GAP 7 (8-16); ASPARTATE AMINO TRANSFERASE 18 U/L (10-37); BILIRUBIN,TOTAL 0.1 MG/DL (0.1-1.0); BLOOD UREA NITROGEN 8 MG/DL (7-18); CALCIUM 8.3 MG/DL (8.5-10.1); CHLORIDE 106 MMOL/L (99-107); CREATININE 0.32 MG/DL (0.60-1.10); GLUCOSE 133 MG/DL (70-104); POTASSIUM 4.1 MMOL/L (3.5-5.1); SODIUM 141 MMOL/L (135-145); TOTAL CARBON DIOXIDE 28.5 MMOL/L (24-32); TOTAL PROTEIN 5.9 G/DL (6.4-8.2); eGFR > 90 ML/MIN
--- NOTE | 2021-12-17 06:40 | NUR ---
Problems reprioritized. Patient report given, questions answered & plan of care reviewed with Harriet KING.
--- NOTE | 2021-12-17 06:40 | NUR ---
Patient in room [facility] 357. I have received report from CHRISTINE Givens and had the opportunity to ask questions and assume patient care.
[2021-12-17 08:00] VITALS: BP 106/57
[2021-12-17] MEDS: docusate sodium 100mg/10ml UD cup PEG SCH (08:00)
[2021-12-17] MEDS: POTASSIUM CHLORIDE 20 MEQ/15 ML oral solution PEG SCH (08:13)
[2021-12-17] MEDS: LACOSAMIDE (Vimpat) 100mg/10ml (10 MG/ML) oral UD solution PEG SCH (08:13)
[2021-12-17] MEDS: lansoprazole 15mg solutab PEG SCH (08:13)
[2021-12-17] MEDS: ascorbic acid 500mg tablet PEG SCH (08:13)
[2021-12-17] MEDS: cholecalciferol (vitamin D3) 400 unit (10mcg) tablet PEG SCH (08:13)
[2021-12-17] MEDS: baclofen 10mg tablet PEG SCH (08:13)
[2021-12-17] MEDS: levetiracetam 100mg/ml oral solution 5ml UD cup PEG SCH (08:13)
[2021-12-17] MEDS: valproate sod 250mg/5ml UD oral syrup PEG SCH (08:13)
[2021-12-17] MEDS: lactobacillus rhamnosus 10,000 MMU CELLS/CAPSULE PEG SCH (08:13)
[2021-12-17] MEDS: heparin, porcine 5000 units/ml vial SQ SCH (08:14)
[2021-12-17] MEDS: normal saline 1000ml 1,000 ML IV SCH (11:00)
--- NOTE | 2021-12-17 14:10 | NUR ---
Patient discharged with belongings which was a green tshirt. Caregiver inquired about a binder of patient's copies of patient's medical hx and meds. Did not find binder. Called down to ER and medical records also stated did not have binder. Patient discharged with caregiver assisted transfer to wheelchair with dominic.
== END 2021-12-17 14:09 | disposition home or self-care (01) | DRG 52 ==
LOC: ER 16:24 → EDBEDREQ 23:03 → ED HOLD 23:03 → EDBEDREQ 23:05 → SUR 3N 12-15 08:55
PROVIDERS: ADMIT Internal Medicine; ATTEND Internal Medicine
PROC: 4A10X4Z Monitoring of Central Nervous Electrical Activity, External Approach (ICD-10-PCS; principal; 2021-12-16)
DX: G92.8 Other toxic encephalopathy (principal); G40.919 Epilepsy, unspecified, intractable, without status epilepticus; G80.9 Cerebral palsy, unspecified; R13.10 Dysphagia, unspecified; T42.6X5A Adverse effect of other antiepileptic and sedative-hypnotic drugs, initial encounter; Z66 Do not resuscitate; Z88.1 Allergy status to other antibiotic agents; Z88.8 Allergy status to other drugs, medicaments and biological substances; Z88.2 Allergy status to sulfonamides; Z88.7 Allergy status to serum and vaccine; Z79.899 Other long term (current) drug therapy; Z93.1 Gastrostomy status; Y92.89 Other specified places as the place of occurrence of the external cause
CPT/HCPCS: 36415; 71045; 80053; 80164; 81001; 82948; 83605; 83735; 84134; 84145; 85025; 87088; 95816; 96361; 96365; 96367; 96375; 99285; G0378; J0696; J1644; J1815; J1953; J2060; J3490; J7030; J7060

== ENCOUNTER 2022-01-25 10:23 | Inpatient (IN) | payer MEDICAID ==
[~2022-01-25] VITALS: Ht 160 cm; Wt 56.8 kg
[~2022-01-25 10:23] MED LIST changes: -AMYL1TAB PO; +ASCO500C17 OGT; -ASCO500C17 PO; +BACL-11 OGT; -BACL-11 PO; -BISA10SU11 RC; +CHOL400T32 OGT; -CHOL400T32 PO; +DEXL60CA3 OGT; -DIME118C3 RC; -DIVA-76 PO; +DOCU100C40 OGT; -DOCU100C40 PO; -ESOM20CA PO; -EUCA50OI5 TP; +GABA250S2 OGT; -GABA600T13 PO; -IBUP-2417 PO; -KEP500T PO; +LACO10SO3 OGT; -LACO200T2 PO; +LACT1CAP75 OGT; -LACT1CAP75 PO; +LEVE100S GT; -MAGN400O6 PO; +PHYT5TAB30 OGT; -PHYT5TAB30 PO; +POTA8TAB69 OGT; -POTA8TAB69 PO; -ROBDML PO; +VALP250S3 OGT
[2022-01-25] MEDS ORDERED: LORazepam 2 mg/ml vial IV ONE (12:30)
[2022-01-25 12:42] LABS: BASOPHILS # (AUTO) 0.1 X10'3 (0-0.2); BASOPHILS % (AUTO) 0.9 % (0-1); EOSINOPHILS # (AUTO) 0.1 X10'3 (0-0.9); EOSINOPHILS % (AUTO) 1.6 % (0-6); HEMOGLOBIN 13.3 g/dl (14.0-17.9); LYMPHOCYTES # (AUTO) 1.8 X10'3 (1.1-4.8); LYMPHOCYTES % (AUTO) 27.2 % (21-51); MEAN CORPUSCULAR HEMOGLOBIN 30.7 PG (27.0-31.0); MEAN CORPUSCULAR HGB CONC 33.1 g/dL (33.0-36.5); MEAN CORPUSCULAR VOLUME 92.5 FL (78-98); MONOCYTES # (AUTO) 0.6 X10'3 (0-0.9); MONOCYTES % (AUTO) 8.6 % (2-12); NEUTROPHILS # (AUTO) 4.1 X10'3 (1.8-7.7); NEUTROPHILS % (AUTO) 61.7 % (42-75); PLATELET COUNT 320 X10'3 (140-440); RED BLOOD COUNT 4.32 X10'6 (4.70-6.10); RED CELL DISTRIBUTION WIDTH 16.2 % (11.5-14.5); WHITE BLOOD COUNT 6.7 X10'3 (4.5-11.0)
[2022-01-25 13:02] LABS: ALANINE AMINOTRANSFERASE 21 U/L (12-78); ALBUMIN 3.7 G/DL (3.4-5.0); ALKALINE PHOSPHATASE 78 IU/L (46-116); ANION GAP 9 (8-16); ASPARTATE AMINO TRANSFERASE 20 U/L (10-37); BILIRUBIN,TOTAL 0.3 MG/DL (0.1-1.0); BLOOD UREA NITROGEN 10 MG/DL (7-18); BUN/CREATININE RATIO 24.4 (5.4-32.0); CALCIUM 9.1 MG/DL (8.5-10.1); CHLORIDE 103 MMOL/L (99-107); CREATININE 0.41 MG/DL (0.60-1.10); GLUCOSE 90 MG/DL (70-104); POTASSIUM 4.3 MMOL/L (3.5-5.1); SODIUM 140 MMOL/L (135-145); TOTAL CARBON DIOXIDE 28.4 MMOL/L (24-32); TOTAL PROTEIN 7.4 G/DL (6.4-8.2); eGFR > 90 ML/MIN
--- NOTE | 2022-01-25 13:47 | NUR ---
Pt resting comfortably, no apparent distress or needs at this time.
--- NOTE | 2022-01-25 13:47 | NUR ---
seizure pads on.caregiver at bedside.
--- NOTE | 2022-01-25 14:41 | NUR ---
? Success A new connect request was successfully created for: BRIGIDO FORD : 1985 ConnectID: [id number] REASON: Status Epilepticus ACUITY: Acuity Level 1 SUBMITTED: 01/25/2022 14:41 PDT
--- NOTE | 2022-01-25 14:55 | NUR ---
TELE NEURO ON GOING.
[2022-01-25] MEDS ORDERED: ondansetron/PF 4mg/2ml inj IV PRN (15:40)
[2022-01-25] MEDS ORDERED: morphine 2 MG/ML inj. syringe IV PRN ×2 (15:40)
[2022-01-25] MEDS ORDERED: acetaminophen 325mg tablet PO PRN (15:40)
[2022-01-25] MEDS ORDERED: mag hydrox/Alum hydrox/simeth 30ml oral suspension PO PRN (15:40)
[2022-01-25] MEDS ORDERED: magnesium hydroxide 30ml (MOM) UD suspension PO PRN (15:40)
[2022-01-25] MEDS ORDERED: LACT-100 OGT (15:49)
[2022-01-25] MEDS ORDERED: NEOM1OIN8 TP (15:49)
--- NOTE | 2022-01-25 15:49 | NUR ---
eeg on going.
--- NOTE | 2022-01-25 16:39 | NUR ---
Attending doc asked that we do not feed pt via tube feeding until pt is awake & alert so he doesn't aspirate
[2022-01-25] MEDS: dextrose 5%-1/2 normal saline 1,000 ML IV SCH (16:59)
[2022-01-25] MEDS ORDERED: albuterol 2.5 MG/3 ML nebule NEB PRN (17:10)
[2022-01-25] MEDS ORDERED: magnesium hydroxide 30ml (MOM) UD suspension OGT PRN (17:29)
[2022-01-25 19:00] VITALS: BP 113/70
[2022-01-25] MEDS ORDERED: docusate sod 100mg capsule PO SCH ×2 (20:00)
[2022-01-25] MEDS ORDERED: valproate sod 250mg/5ml UD oral syrup OGT SCH (20:00)
[2022-01-25] MEDS ORDERED: docusate sodium 100mg/10ml UD cup PO SCH (20:18)
[2022-01-25] MEDS ORDERED: docusate sodium 100mg/10ml UD cup OGT SCH (20:24)
[2022-01-25] MEDS: levetiracetam 100mg/ml oral solution 5ml UD cup OGT SCH (20:49)
[2022-01-25] MEDS: ascorbic acid 500mg tablet OGT SCH (20:52)
[2022-01-25] MEDS: gabapentin 300mg capsule OGT SCH (20:52)
[2022-01-25] MEDS: baclofen 10mg tablet OGT SCH (20:52)
[2022-01-25] MEDS ORDERED: [UNRECOGNIZED DRUG - OTHER] OGT SCH (21:00)
[2022-01-25] MEDS ORDERED: BACITRACIN TP SCH (21:00)
[2022-01-25] MEDS ORDERED: ENTERAL NUTRITION FORMULA OGT SCH (21:00)
[2022-01-25] MEDS ORDERED: NEOMYCIN TP SCH (21:00)
[2022-01-25] MEDS ORDERED: POLYMYXIN B TP SCH (21:00)
[2022-01-25 22:00] VITALS: BP 130/67
[2022-01-25] MEDS: LACOSAMIDE (Vimpat) 100mg/10ml (10 MG/ML) oral UD solution OGT SCH (22:46)
[2022-01-26] MEDS: dextrose 5%-1/2 normal saline 1,000 ML IV SCH ×2 (03:46→13:31)
[2022-01-26] MEDS ORDERED: LIDOcaine 2% 10ml TOPICAL JELLY (Urojet) TP ONE (05:25)
[2022-01-26 07:00] LABS: BASOPHILS # (AUTO) 0.1 X10'3 (0-0.2); BASOPHILS % (AUTO) 1.2 % (0-1); EOSINOPHILS # (AUTO) 0.2 X10'3 (0-0.9); EOSINOPHILS % (AUTO) 2.5 % (0-6); HEMATOCRIT 37.4 % (42.0-52.0); HEMOGLOBIN 12.6 g/dl (14.0-17.9); LYMPHOCYTES # (AUTO) 1.7 X10'3 (1.1-4.8); LYMPHOCYTES % (AUTO) 26.9 % (21-51); MEAN CORPUSCULAR HEMOGLOBIN 31.3 PG (27.0-31.0); MEAN CORPUSCULAR HGB CONC 33.8 g/dL (33.0-36.5); MEAN CORPUSCULAR VOLUME 92.6 FL (78-98); MONOCYTES # (AUTO) 0.7 X10'3 (0-0.9); MONOCYTES % (AUTO) 10.5 % (2-12); NEUTROPHILS # (AUTO) 3.8 X10'3 (1.8-7.7); NEUTROPHILS % (AUTO) 58.9 % (42-75); PLATELET COUNT 308 X10'3 (140-440); RED BLOOD COUNT 4.04 X10'6 (4.70-6.10); RED CELL DISTRIBUTION WIDTH 16.2 % (11.5-14.5); WHITE BLOOD COUNT 6.5 X10'3 (4.5-11.0)
[2022-01-26 07:13] LABS: ALBUMIN 3.3 G/DL (3.4-5.0); ANION GAP 8 (8-16); BLOOD UREA NITROGEN 9 MG/DL (7-18); BUN/CREATININE RATIO 20.5 (5.4-32.0); CALCIUM 8.5 MG/DL (8.5-10.1); CHLORIDE 103 MMOL/L (99-107); CREATININE 0.44 MG/DL (0.60-1.10); GLUCOSE 109 MG/DL (70-104); POTASSIUM 3.9 MMOL/L (3.5-5.1); SODIUM 139 MMOL/L (135-145); TOTAL CARBON DIOXIDE 28.3 MMOL/L (24-32); eGFR > 90 ML/MIN
[2022-01-26 07:16] VITALS: BP 104/60
[2022-01-26] MEDS ORDERED: potassium chloride 8mEq ER tablet PO SCH (08:00)
[2022-01-26] MEDS ORDERED: cholecalciferol (vitamin D3) 400 unit (10mcg) tablet OGT SCH (08:00)
[2022-01-26] MEDS ORDERED: valproate sod 250mg/5ml UD oral syrup OGT SCH (08:00)
[2022-01-26] MEDS ORDERED: lactobacillus rhamnosus 10,000 MMU CELLS/CAPSULE OGT SCH (08:00)
[2022-01-26] MEDS ORDERED: pantoprazole 40 MG vial IV SCH (08:00)
[2022-01-26] MEDS: gabapentin 300mg capsule OGT SCH ×2 (08:37→13:31)
[2022-01-26] MEDS: ascorbic acid 500mg tablet OGT SCH (08:37)
[2022-01-26] MEDS: baclofen 10mg tablet OGT SCH (08:38)
[2022-01-26] MEDS: enoxaparin 40mg/0.4ml syringe SUBCUT SCH (08:43)
[2022-01-26] MEDS ORDERED: pantoprazole 40mg Tablet.DR PO SCH (09:45)
[2022-01-26] MEDS: LACOSAMIDE (Vimpat) 100mg/10ml (10 MG/ML) oral UD solution OGT SCH (10:14)
[2022-01-26 10:35] VITALS: BP 112/70
[2022-01-26] MEDS: levetiracetam 100mg/ml oral solution 5ml UD cup OGT SCH (10:53)
--- NOTE | 2022-01-26 11:47 | NUR ---
TF Consult: Pt admit DX seizure hx cerebral palsy w/ G-tube on bolus feeds for nutrition per EMR. Pending scaled wt this admit w/ true ht hx 67in per prior admits in EMR; will use IBW for estimated EN needs. TF recs below; will monitor for scaled wt hx and TF adjustment needs this admit. Rec: 1) Bolus TF via G-tube QID at 0800, 1200, 1600, and 2000 using Jevity 1.2 with 365mL goal. To provide 1460 mL volume, 1752 kcal, 81 g protein, 1178 mL water. Initiate at 185ml bolus since receiving feeds prior to admit; advance 60ml Q bolus to goal as tolerated. 2) Additional 60 mL water flush before and after each bolus feed; monitor serum Na for adjustment needs 3) PALB q Monday/ 4) Daily scaled weights 5) Routine bowel care Addendum: 01/26/22 at [address] Amended: Links added.
--- NOTE | 2022-01-26 15:13 | NUR ---
POC updated with Tammi (Nurse). She will be available to arrange pickup when patient is discharged. phone number [phone]
[2022-01-26] MEDS ORDERED: cholecalciferol (vitamin D3) 400 unit (10mcg) tablet PEG SCH (15:42)
[2022-01-26] MEDS ORDERED: mag hydrox/Alum hydrox/simeth 30ml oral suspension PEG PRN (15:43)
[2022-01-26] MEDS ORDERED: lactobacillus rhamnosus 10,000 MMU CELLS/CAPSULE PEG SCH (15:43)
[2022-01-26] MEDS ORDERED: acetaminophen 325mg/10.15ml oral unit dose solution PEG PRN (15:45)
[2022-01-26] MEDS ORDERED: magnesium hydroxide 30ml (MOM) UD suspension PEG PRN (15:54)
[2022-01-26 18:00] VITALS: BP 124/82
--- NOTE | 2022-01-26 18:20 | NUR ---
Problems reprioritized. Patient report given, questions answered & plan of care reviewed with CHRISTINE Serrano.
--- NOTE | 2022-01-26 18:49 | NUR ---
Patient in room ORTHO 4008. I have received report from Nargis KING and had the opportunity to ask questions and assume patient care.
[2022-01-26] MEDS: docusate sodium 100mg/10ml UD cup PEG SCH (21:53)
[2022-01-26] MEDS: valproate sod 250mg/5ml UD oral syrup PEG SCH (21:54)
[2022-01-26] MEDS: gabapentin 300mg capsule PEG SCH (21:54)
[2022-01-26] MEDS: ascorbic acid 500mg tablet PEG SCH (21:54)
[2022-01-26] MEDS: baclofen 10mg tablet PEG SCH (21:54)
[2022-01-26] MEDS: levetiracetam 100mg/ml oral solution 5ml UD cup PEG SCH (21:55)
[2022-01-26 22:00] VITALS: BP 127/81
[2022-01-26] MEDS ORDERED: LACOSAMIDE (Vimpat) 100mg/10ml (10 MG/ML) oral UD solution PEG ONE (22:05)
[2022-01-26] MEDS: LACOSAMIDE (Vimpat) 100mg/10ml (10 MG/ML) oral UD solution PEG SCH (22:09)
[2022-01-27] MEDS: dextrose 5%-1/2 normal saline 1,000 ML IV SCH ×3 (00:02→10:02)
[2022-01-27 06:00] VITALS: BP 134/85
--- NOTE | 2022-01-27 06:38 | NUR ---
Problems reprioritized. Patient report given, questions answered & plan of care reviewed with Madai KING.
[2022-01-27 06:40] LABS: BASOPHILS # (AUTO) 0.1 X10'3 (0-0.2); BASOPHILS % (AUTO) 0.8 % (0-1); EOSINOPHILS # (AUTO) 0.1 X10'3 (0-0.9); HEMATOCRIT 35.2 % (42.0-52.0); HEMOGLOBIN 11.6 g/dl (14.0-17.9); LYMPHOCYTES # (AUTO) 1.6 X10'3 (1.1-4.8); LYMPHOCYTES % (AUTO) 22.1 % (21-51); MEAN CORPUSCULAR HEMOGLOBIN 30.4 PG (27.0-31.0); MEAN CORPUSCULAR HGB CONC 32.8 g/dL (33.0-36.5); MEAN CORPUSCULAR VOLUME 92.6 FL (78-98); MEAN PLATELET VOLUME 8.8 FL (7.4-10.4); MONOCYTES # (AUTO) 0.8 X10'3 (0-0.9); MONOCYTES % (AUTO) 10.6 % (2-12); NEUTROPHILS # (AUTO) 4.7 X10'3 (1.8-7.7); NEUTROPHILS % (AUTO) 65.5 % (42-75); PLATELET COUNT 291 X10'3 (140-440); RED BLOOD COUNT 3.81 X10'6 (4.70-6.10); RED CELL DISTRIBUTION WIDTH 16.3 % (11.5-14.5); WHITE BLOOD COUNT 7.2 X10'3 (4.5-11.0)
[2022-01-27 06:54] LABS: ALBUMIN 3.1 G/DL (3.4-5.0); ANION GAP 4 (8-16); BLOOD UREA NITROGEN 4 MG/DL (7-18); BUN/CREATININE RATIO 9.5 (5.4-32.0); CALCIUM 8.3 MG/DL (8.5-10.1); CHLORIDE 107 MMOL/L (99-107); CREATININE 0.42 MG/DL (0.60-1.10); GLUCOSE 106 MG/DL (70-104); POTASSIUM 3.8 MMOL/L (3.5-5.1); PREALBUMIN 15.7 MG/DL (19-36); SODIUM 141 MMOL/L (135-145); TOTAL CARBON DIOXIDE 30.3 MMOL/L (24-32); eGFR > 90 ML/MIN
[2022-01-27] MEDS ORDERED: POTASSIUM CHLORIDE 20 MEQ/15 ML oral solution PEG SCH (08:00)
[2022-01-27] MEDS ORDERED: lansoprazole 15mg solutab PEG SCH (08:00)
[2022-01-27] MEDS: docusate sodium 100mg/10ml UD cup PEG SCH (08:13)
[2022-01-27] MEDS: levetiracetam 100mg/ml oral solution 5ml UD cup PEG SCH (08:14)
[2022-01-27] MEDS: gabapentin 300mg capsule PEG SCH ×2 (08:14→14:35)
[2022-01-27] MEDS: valproate sod 250mg/5ml UD oral syrup PEG SCH (08:14)
[2022-01-27] MEDS: baclofen 10mg tablet PEG SCH (08:14)
[2022-01-27] MEDS: LACOSAMIDE (Vimpat) 100mg/10ml (10 MG/ML) oral UD solution PEG SCH (08:16)
[2022-01-27] MEDS: ascorbic acid 500mg tablet PEG SCH (08:16)
[2022-01-27] MEDS: enoxaparin 40mg/0.4ml syringe SUBCUT SCH (08:17)
[2022-01-27 10:00] VITALS: BP 114/78
[2022-01-27] MEDS ORDERED: VALP250S3 PEG (10:38)
== END 2022-01-27 15:45 | disposition home health service (06) | DRG 53 ==
LOC: ER 10:23 → ED HOLD 15:48 → ORTHO 4S 19:00
PROVIDERS: ADMIT Internal Medicine; ATTEND Internal Medicine
PROC: 4A10X4Z Monitoring of Central Nervous Electrical Activity, External Approach (ICD-10-PCS; principal; 2022-01-25)
DX: G40.909 Epilepsy, unspecified, not intractable, without status epilepticus (principal); G80.9 Cerebral palsy, unspecified; Z79.899 Other long term (current) drug therapy; Z93.1 Gastrostomy status
CPT/HCPCS: 36415; 70450; 80048; 80053; 80164; 80177; 82948; 83605; 84134; 85025; 87081; 94760; 95816; 99285; G0378; J1650; J1953; J2060; J7042

== ENCOUNTER 2022-02-16 15:34 | Emergency (ER) | payer MEDICAID ==
[~2022-02-16] VITALS: Ht 170.2 cm; Wt 54.1 kg
[~2022-02-16 15:34] MED LIST changes: +LACT-100 OGT; +NEOM1OIN8 TP; -VALP250S3 OGT; +VALP250S3 PEG
--- NOTE | 2022-02-16 18:35 | NUR ---
ERP to bedside to evaluate pt. Pt pink, alert, no acute/resp distress. Caregiver at bedside as well.
--- NOTE | 2022-02-16 19:06 | NUR ---
Attempted to flush g-button with Coke. Will let Coke sit in G-button to see if it will loosen clog. Pt. dharmesh. well, remained pink during procedure. caregiver assisted living at bedside during procedure.
--- NOTE | 2022-02-16 19:24 | NUR ---
Attempted to flush g-button with Coke. Unable to flush, able to aspirate very much air with some particulate sediment. Still unable to flush even after aspiration.
--- NOTE | 2022-02-16 19:36 | NUR ---
Attempted to flush/aspirate g-button without success. Same results as described in first note.
--- NOTE | 2022-02-16 19:44 | NUR ---
Advised ERP of progress with G-button. Pt pink, alert, no acute/resp distress. Caregiver at bedside.
--- NOTE | 2022-02-16 20:25 | NUR ---
Advised ERP of third attempt at flushing g-button without success. Site looks clean, dry, intact without any complication externally. Care provider at bedside.
[2022-02-16] MEDS ORDERED: valproate sod inj 500 MG in normal saline 50ml IV soln 50 ML IV ONE (20:45)
[2022-02-16] MEDS ORDERED: levetiracetam inj 1,000 MG in normal saline 100ml IV soln 90 ML IV ONE (20:52)
[2022-02-16] MEDS ORDERED: normal saline 1000ML IV soln IVB ONE (21:10)
--- NOTE | 2022-02-16 21:49 | NUR ---
Pt pink, alert, no acute/resp distress. Caregiver at bedside as well. IVF and medications infusing via pump s complication or adverse reaction. PIV site c/d/i.
--- NOTE | 2022-02-16 22:00 | NUR ---
Pt to CT scan via wc no complications, pt pink, alert, PIV site c/d/i s complication.
[2022-02-17 00:10] VITALS: BP 135/92
[2022-02-17] MEDS ORDERED: levetiracetam inj 500 MG in normal saline 100ml IV soln 95 ML IV SCH (08:00)
== END 2022-02-17 00:13 | disposition home or self-care (01) ==
LOC: ER 15:34
DX: K94.23 Gastrostomy malfunction (principal); Z95.0 Presence of cardiac pacemaker; Z88.1 Allergy status to other antibiotic agents; Z88.2 Allergy status to sulfonamides; Z88.8 Allergy status to other drugs, medicaments and biological substances; Z79.899 Other long term (current) drug therapy
CPT/HCPCS: 74176; 96365; 96366; 96368; 99284; J1953; J3490; J7030

== ENCOUNTER 2022-02-17 11:12 | Emergency (ER) | payer MEDICAID ==
[~2022-02-17] VITALS: Ht 170.2 cm; Wt 54.1 kg
[2022-02-17 11:17] VITALS: BP 126/78
--- NOTE | 2022-02-17 11:42 | NUR ---
G-TUBE WAS FLUSHED WITH PEPSI AND WARM TAP WATER UNTIL CLEARED AND IS NOW PATENT. G-TUBE FLUSHED WITH 60 ML WATER.
== END 2022-02-17 12:00 | disposition home or self-care (01) ==
LOC: ER 11:12
DX: K94.23 Gastrostomy malfunction (principal)
CPT/HCPCS: 99281

== ENCOUNTER 2022-03-09 09:03 | Day surgery (SDC) | payer MEDICAID ==
[2022-03-09 09:10] VITALS: BP 126/72
[2022-03-09 09:15] VITALS: BP 126/72
[2022-03-09] MEDS ORDERED: ASCO500C17 OGT (09:30)
[2022-03-09] MEDS ORDERED: LACO10SO3 OGT (09:30)
[2022-03-09] MEDS ORDERED: CHOL400T32 OGT (09:30)
[2022-03-09] MEDS ORDERED: POTA-208 (09:33)
[2022-03-09] MEDS ORDERED: CARB15DR91 RIGHT EAR (09:33)
[2022-03-09] MEDS ORDERED: LIDOcaine 1%/PF 5ML 10 MG/ML VIAL ONE (09:43)
[2022-03-09] MEDS ORDERED: iohexol 300 MG/1 ML 10ml vial ONE (09:43)
[2022-03-09] MEDS ORDERED: LIDOcaine/PRILOcaine 5gm cream TP ONE (10:21)
--- NOTE | 2022-03-09 10:55 | NUR ---
Patient stable for discharge per MD orders s/p g tube change. Vital signs stable. All discharge instructions reviewed with primary caregiver, Cystal, TELEPHONE SEX WORKER and all questions answered. Procedure site stable with no signs of bleeding or drainage. Patient wheeled to lobby by Tammi. All discharge needs met at this time.
== END 2022-03-09 10:55 ==
LOC: SSTAY O 09:03
PROVIDERS: ATTEND Radiology Vascular & Interventional Radiology
DX: Z43.1 Encounter for attention to gastrostomy (principal); G80.9 Cerebral palsy, unspecified; Z88.1 Allergy status to other antibiotic agents; Z88.2 Allergy status to sulfonamides; Z88.8 Allergy status to other drugs, medicaments and biological substances; Z91.09 Other allergy status, other than to drugs and biological substances; Z95.0 Presence of cardiac pacemaker; Z79.899 Other long term (current) drug therapy
CPT/HCPCS: 49450; B4087; C1729; C1769; Q9967; J3490

== ENCOUNTER 2022-05-17 15:47 | Emergency (ER) | payer MEDICAID ==
[~2022-05-17] VITALS: Ht 170.2 cm; Wt 60.0 kg
[~2022-05-17 15:47] MED LIST changes: +CARB15DR91 RIGHT EAR; -NEOM1OIN8 TP; +POTA-208; -POTA8TAB69 OGT
[2022-05-17 15:51] VITALS: BP 111/83
[2022-05-17] MEDS ORDERED: bacitracin 15gm ointment TP ONE (18:55)
[2022-05-17] MEDS ORDERED: BACI1PAC7 TOP (19:02)
== END 2022-05-17 20:17 | disposition home or self-care (01) ==
LOC: ER 15:49
DX: L89.329 Pressure ulcer of left buttock, unspecified stage (principal); L89.319 Pressure ulcer of right buttock, unspecified stage; L89.899 Pressure ulcer of other site, unspecified stage; Z88.1 Allergy status to other antibiotic agents; Z88.2 Allergy status to sulfonamides; Z88.8 Allergy status to other drugs, medicaments and biological substances; Z91.09 Other allergy status, other than to drugs and biological substances
CPT/HCPCS: 99284

== ENCOUNTER 2022-05-31 12:55 | Emergency (ER) | payer MEDICAID ==
[~2022-05-31] VITALS: Ht 152.4 cm; Wt 56.2 kg
[~2022-05-31 12:55] MED LIST changes: +BACI1PAC7 TOP
[2022-05-31] MEDS ORDERED: levetiracetam inj 1,000 MG in normal saline 100ml IV soln 90 ML IV STA (13:42)
[2022-05-31] MEDS ORDERED: normal saline 1000ML IV soln IVB ONE (13:45)
[2022-05-31] MEDS ORDERED: magnesium 2GM in 50ml NS 50 ML IV ONE (13:45)
[2022-05-31] MEDS ORDERED: ondansetron/PF 4mg/2ml inj IV ONE (13:45)
[2022-05-31 14:33] LABS: BASOPHILS % (AUTO) 0.5 % (0-1); EOSINOPHILS # (AUTO) 0.1 X10'3 (0-0.9); EOSINOPHILS % (AUTO) 2.1 % (0-6); HEMATOCRIT 37.5 % (42.0-52.0); HEMOGLOBIN 12.6 g/dl (14.0-17.9); LYMPHOCYTES # (AUTO) 1.9 X10'3 (1.1-4.8); LYMPHOCYTES % (AUTO) 31.3 % (21-51); MEAN CORPUSCULAR HEMOGLOBIN 31.4 PG (27.0-31.0); MEAN CORPUSCULAR HGB CONC 33.6 g/dL (33.0-36.5); MEAN CORPUSCULAR VOLUME 93.6 FL (78-98); MEAN PLATELET VOLUME 9.3 FL (7.4-10.4); MONOCYTES # (AUTO) 0.4 X10'3 (0-0.9); MONOCYTES % (AUTO) 7.1 % (2-12); NEUTROPHILS # (AUTO) 3.5 X10'3 (1.8-7.7); PLATELET COUNT 254 X10'3 (140-440); RED CELL DISTRIBUTION WIDTH 15.2 % (11.5-14.5); WHITE BLOOD COUNT 5.9 X10'3 (4.5-11.0)
[2022-05-31 14:43] LABS: ALANINE AMINOTRANSFERASE 14 U/L (12-78); ALBUMIN/GLOBULIN RATIO 0.7 (1.1-1.5); ALKALINE PHOSPHATASE 81 IU/L (46-116); ANION GAP 12 (8-16); ASPARTATE AMINO TRANSFERASE 17 U/L (10-37); BILIRUBIN,TOTAL 0.3 MG/DL (0.1-1.0); BLOOD UREA NITROGEN 10 MG/DL (7-18); BUN/CREATININE RATIO 33.3 (5.4-32.0); CALCIUM 8.5 MG/DL (8.5-10.1); CHLORIDE 103 MMOL/L (99-107); GLUCOSE 108 MG/DL (70-104); SODIUM 144 MMOL/L (135-145); TOTAL CARBON DIOXIDE 29.3 MMOL/L (24-32); TOTAL PROTEIN 7.1 G/DL (6.4-8.2); eGFR > 90 ML/MIN
[2022-05-31 14:44] LABS: CREATINE KINASE 60 U/L (39-308); POTASSIUM 4.5 MMOL/L (3.5-5.1)
--- NOTE | 2022-05-31 17:00 | NUR ---
No sign of seizure activity noted, will continue to monitor.
--- NOTE | 2022-05-31 17:52 | NUR ---
Pt d/c back to Facility in good condition.
[2022-05-31 17:56] VITALS: BP 109/79
== END 2022-05-31 17:58 | disposition home or self-care (01) ==
LOC: ER 12:56
DX: G40.909 Epilepsy, unspecified, not intractable, without status epilepticus (principal); G80.0 Spastic quadriplegic cerebral palsy; Z86.69 Personal history of other diseases of the nervous system and sense organs; Z95.0 Presence of cardiac pacemaker; Z98.890 Other specified postprocedural states; Z88.1 Allergy status to other antibiotic agents; Z88.2 Allergy status to sulfonamides; Z88.7 Allergy status to serum and vaccine; Z79.899 Other long term (current) drug therapy
CPT/HCPCS: 36415; 71045; 80053; 82550; 85025; 96365; 96366; 96375; 99284; J1953; J2405; J3475; J3490; J7030

== ENCOUNTER 2022-06-15 10:53 | Day surgery (SDC) | payer MEDICAID ==
[~2022-06-15] VITALS: Ht 175.3 cm; Wt 49.6 kg
[2022-06-15 11:12] VITALS: BP 102/67
[2022-06-15] MEDS ORDERED: IOPAMIDOL 10 ML VIAL IT ONE (12:03)
[2022-06-15 12:45] VITALS: BP 102/67
== END 2022-06-15 12:45 ==
LOC: SSTAY O 10:53
PROVIDERS: ATTEND Radiology Vascular & Interventional Radiology
DX: Z43.1 Encounter for attention to gastrostomy (principal); R13.10 Dysphagia, unspecified; G80.9 Cerebral palsy, unspecified
CPT/HCPCS: 43762; 74018; B4087; Q9966; J7030

== ENCOUNTER 2022-09-08 10:53 | Emergency (ER) | payer MEDICAID ==
[~2022-09-08] VITALS: Ht 172.7 cm; Wt 80.0 kg
[~2022-09-08 10:53] MED LIST changes: -ALBU8.5H17 IH; -BACI1PAC7 TOP
[2022-09-08 10:58] VITALS: BP 115/65
[2022-09-08] MEDS ORDERED: LACO10SO3 OGT (11:15)
[2022-09-08] MEDS ORDERED: LACO10SO3 PO (11:15)
== END 2022-09-08 11:25 | disposition home or self-care (01) ==
LOC: ER 10:54
DX: G40.909 Epilepsy, unspecified, not intractable, without status epilepticus (principal); G80.9 Cerebral palsy, unspecified; Z76.0 Encounter for issue of repeat prescription; Z86.69 Personal history of other diseases of the nervous system and sense organs; Z95.0 Presence of cardiac pacemaker; Z98.890 Other specified postprocedural states; Z88.1 Allergy status to other antibiotic agents; Z88.2 Allergy status to sulfonamides; Z88.8 Allergy status to other drugs, medicaments and biological substances; Z79.899 Other long term (current) drug therapy
CPT/HCPCS: 99283

== ENCOUNTER 2022-09-27 20:25 | Emergency (ER) | payer MEDICAID ==
[~2022-09-27] VITALS: Ht 121.9 cm; Wt 59.4 kg
[~2022-09-27 20:25] MED LIST changes: +LACO10SO3 PO
[2022-09-27 21:54] LABS: BASOPHILS % (AUTO) 0.5 % (0-1); EOSINOPHILS # (AUTO) 0.2 X10'3 (0-0.9); EOSINOPHILS % (AUTO) 2.9 % (0-6); HEMATOCRIT 38.2 % (42.0-52.0); HEMOGLOBIN 12.8 g/dl (14.0-17.9); LYMPHOCYTES # (AUTO) 2.1 X10'3 (1.1-4.8); LYMPHOCYTES % (AUTO) 30.2 % (21-51); MEAN CORPUSCULAR HEMOGLOBIN 32.1 PG (27.0-31.0); MEAN CORPUSCULAR HGB CONC 33.6 g/dL (33.0-36.5); MEAN CORPUSCULAR VOLUME 95.5 FL (78-98); MEAN PLATELET VOLUME 8.4 FL (7.4-10.4); MONOCYTES # (AUTO) 0.9 X10'3 (0-0.9); MONOCYTES % (AUTO) 13.2 % (2-12); NEUTROPHILS # (AUTO) 3.6 X10'3 (1.8-7.7); NEUTROPHILS % (AUTO) 53.2 % (42-75); PLATELET COUNT 310 X10'3 (140-440); RED CELL DISTRIBUTION WIDTH 14.8 % (11.5-14.5); WHITE BLOOD COUNT 6.8 X10'3 (4.5-11.0)
[2022-09-27 22:11] LABS: ALANINE AMINOTRANSFERASE 15 U/L (12-78); ALBUMIN 3.1 G/DL (3.4-5.0); ALBUMIN/GLOBULIN RATIO 0.8 (1.1-1.5); ALKALINE PHOSPHATASE 78 IU/L (46-116); ANION GAP 5 (8-16); ASPARTATE AMINO TRANSFERASE 11 U/L (10-37); BILIRUBIN,TOTAL 0.2 MG/DL (0.1-1.0); BLOOD UREA NITROGEN 9 MG/DL (7-18); BUN/CREATININE RATIO 24.3 (5.4-32.0); CALCIUM 8.8 MG/DL (8.5-10.1); CHLORIDE 99 MMOL/L (99-107); CREATININE 0.37 MG/DL (0.60-1.10); GLUCOSE 101 MG/DL (70-104); POTASSIUM 3.8 MMOL/L (3.5-5.1); SODIUM 134 MMOL/L (135-145); TOTAL CARBON DIOXIDE 29.9 MMOL/L (24-32); TOTAL PROTEIN 7.2 G/DL (6.4-8.2); eGFR > 90 ML/MIN
[2022-09-27 22:53] VITALS: BP 130/82
== END 2022-09-27 22:55 | disposition home or self-care (01) ==
LOC: ER 20:26
DX: K64.4 Residual hemorrhoidal skin tags (principal); Z88.1 Allergy status to other antibiotic agents; Z79.899 Other long term (current) drug therapy; Z88.2 Allergy status to sulfonamides
CPT/HCPCS: 36415; 80053; 85025; 86885; 86900; 86901; 99283

== ENCOUNTER 2022-10-25 11:19 | Day surgery (SDC) | payer MEDICAID ==
[2022-10-25 11:41] VITALS: BP 123/79
[2022-10-25] MEDS ORDERED: LACO200T4 OGT (12:01)
[2022-10-25] MEDS ORDERED: VALP500S OGT (12:01)
[2022-10-25] MEDS ORDERED: iohexol 350 MG/ML 50ML vial IV ONE (12:21)
[2022-10-25 12:30] VITALS: BP 123/79
[2022-10-25 12:54] VITALS: BP 136/87
== END 2022-10-25 13:00 | disposition home or self-care (01) ==
LOC: SSTAY O 11:19
PROVIDERS: ATTEND Radiology Vascular & Interventional Radiology
DX: Z43.1 Encounter for attention to gastrostomy (principal); Z88.2 Allergy status to sulfonamides; Z88.1 Allergy status to other antibiotic agents; Z88.8 Allergy status to other drugs, medicaments and biological substances
CPT/HCPCS: 43762; 74018; Q9967; B4087; J7030

== ENCOUNTER 2022-10-28 16:50 | Emergency (ER) | payer MEDICAID ==
[~2022-10-28] VITALS: Ht 172.7 cm; Wt 63.6 kg
[~2022-10-28 16:50] MED LIST changes: -LACO10SO3 OGT; -LACO10SO3 PO; +LACO200T4 OGT; -VALP250S3 PEG; +VALP500S OGT
[2022-10-28 17:49] LABS: BASOPHILS # (AUTO) 0.1 X10'3 (0-0.2); BASOPHILS % (AUTO) 1.1 % (0-1); EOSINOPHILS # (AUTO) 0.2 X10'3 (0-0.9); EOSINOPHILS % (AUTO) 2.7 % (0-6); HEMATOCRIT 41.6 % (42.0-52.0); HEMOGLOBIN 13.9 g/dl (14.0-17.9); LYMPHOCYTES # (AUTO) 1.8 X10'3 (1.1-4.8); LYMPHOCYTES % (AUTO) 29.8 % (21-51); MEAN CORPUSCULAR HEMOGLOBIN 31.6 PG (27.0-31.0); MEAN CORPUSCULAR HGB CONC 33.3 g/dL (33.0-36.5); MEAN CORPUSCULAR VOLUME 94.8 FL (78-98); MEAN PLATELET VOLUME 9.6 FL (7.4-10.4); MONOCYTES # (AUTO) 0.5 X10'3 (0-0.9); MONOCYTES % (AUTO) 7.6 % (2-12); NEUTROPHILS # (AUTO) 3.5 X10'3 (1.8-7.7); NEUTROPHILS % (AUTO) 58.8 % (42-75); PLATELET COUNT 260 X10'3 (140-440); RED BLOOD COUNT 4.39 X10'6 (4.70-6.10); RED CELL DISTRIBUTION WIDTH 14.9 % (11.5-14.5)
[2022-10-28 17:52] LABS: ALANINE AMINOTRANSFERASE 22 U/L (12-78); ALBUMIN 3.6 G/DL (3.4-5.0); ALBUMIN/GLOBULIN RATIO 0.9 (1.1-1.5); ALKALINE PHOSPHATASE 87 IU/L (46-116); ANION GAP 4 (8-16); ASPARTATE AMINO TRANSFERASE 25 U/L (10-37); BILIRUBIN,TOTAL 0.3 MG/DL (0.1-1.0); BLOOD UREA NITROGEN 7 MG/DL (7-18); BUN/CREATININE RATIO 16.7 (5.4-32.0); CALCIUM 8.8 MG/DL (8.5-10.1); CHLORIDE 99 MMOL/L (99-107); CREATININE 0.42 MG/DL (0.60-1.10); GLUCOSE 95 MG/DL (70-104); POTASSIUM 4.2 MMOL/L (3.5-5.1); SODIUM 136 MMOL/L (135-145); TOTAL CARBON DIOXIDE 32.8 MMOL/L (24-32); TOTAL PROTEIN 7.6 G/DL (6.4-8.2); eGFR > 90 ML/MIN
--- NOTE | 2022-10-28 19:38 | NUR ---
PER MALTER OPERATOR THE PTS STOMACH IS MUCH MORE DISTENDED THAN USUAL. THE PT HAS ALSO HAD HIGHER RESIDUALS FROM PEG TUBE FEEDINGS S/P PEG TUBE REPLACEMENT ON 10/25/22.
[2022-10-28 21:44] VITALS: BP 110/70
== END 2022-10-28 21:45 | disposition home or self-care (01) ==
LOC: ER 16:51
DX: K94.20 Gastrostomy complication, unspecified (principal); K21.9 Gastro-esophageal reflux disease without esophagitis; Z88.0 Allergy status to penicillin; Z88.2 Allergy status to sulfonamides; Z79.899 Other long term (current) drug therapy; Z79.1 Long term (current) use of non-steroidal anti-inflammatories (NSAID); Z79.2 Long term (current) use of antibiotics
CPT/HCPCS: 36415; 74176; 80053; 85025; 99284

== ENCOUNTER 2022-12-25 17:46 | Emergency (ER) | payer MEDICAID ==
[~2022-12-25] VITALS: Ht 154.9 cm; Wt 50.0 kg
[2022-12-25] MEDS ORDERED: ondansetron/PF 4mg/2ml inj IV ONE (19:50)
[2022-12-25] MEDS ORDERED: normal saline 500ml IV soln 500 ML IV ONE (19:50)
[2022-12-25 20:27] LABS: BASOPHILS # (AUTO) 0.1 X10'3 (0-0.2); BASOPHILS % (AUTO) 1.4 % (0-1); EOSINOPHILS # (AUTO) 0.1 X10'3 (0-0.9); EOSINOPHILS % (AUTO) 1.7 % (0-6); HEMOGLOBIN 14.4 g/dl (14.0-17.9); LYMPHOCYTES # (AUTO) 2.1 X10'3 (1.1-4.8); LYMPHOCYTES % (AUTO) 37.3 % (21-51); MEAN CORPUSCULAR HEMOGLOBIN 32.2 PG (27.0-31.0); MEAN CORPUSCULAR HGB CONC 33.5 g/dL (33.0-36.5); MEAN CORPUSCULAR VOLUME 96.2 FL (78-98); MEAN PLATELET VOLUME 8.7 FL (7.4-10.4); MONOCYTES # (AUTO) 0.4 X10'3 (0-0.9); MONOCYTES % (AUTO) 7.5 % (2-12); NEUTROPHILS # (AUTO) 2.9 X10'3 (1.8-7.7); NEUTROPHILS % (AUTO) 52.1 % (42-75); PLATELET COUNT 297 X10'3 (140-440); RED BLOOD COUNT 4.46 X10'6 (4.70-6.10); RED CELL DISTRIBUTION WIDTH 14.9 % (11.5-14.5); WHITE BLOOD COUNT 5.5 X10'3 (4.5-11.0)
[2022-12-25 20:42] LABS: ALANINE AMINOTRANSFERASE 31 U/L (12-78); ALBUMIN 3.9 G/DL (3.4-5.0); ALKALINE PHOSPHATASE 100 IU/L (46-116); ANION GAP 8 (8-16); ASPARTATE AMINO TRANSFERASE 27 U/L (10-37); BILIRUBIN,TOTAL 0.2 MG/DL (0.1-1.0); BLOOD UREA NITROGEN 8 MG/DL (7-18); BUN/CREATININE RATIO 26.7 (5.4-32.0); CHLORIDE 101 MMOL/L (99-107); GLUCOSE 94 MG/DL (70-104); MAGNESIUM 2.3 MG/DL (1.5-2.4); POTASSIUM 4.2 MMOL/L (3.5-5.1); SODIUM 139 MMOL/L (135-145); TOTAL CARBON DIOXIDE 30.2 MMOL/L (24-32); TOTAL PROTEIN 7.8 G/DL (6.4-8.2); eGFR > 90 ML/MIN
[2022-12-25] MEDS ORDERED: ONDA8TAB13 PO (21:15)
[2022-12-25 21:31] VITALS: BP 144/99
== END 2022-12-25 22:21 | disposition home or self-care (01) ==
LOC: ER 17:46
DX: R11.10 Vomiting, unspecified (principal); K21.9 Gastro-esophageal reflux disease without esophagitis; Z88.1 Allergy status to other antibiotic agents; Z88.2 Allergy status to sulfonamides; Z88.8 Allergy status to other drugs, medicaments and biological substances
CPT/HCPCS: 36415; 71045; 74176; 80053; 83605; 83735; 84145; 85025; 96361; 96374; 99285; J2405; J7040

== ENCOUNTER 2022-12-27 10:48 | Emergency (ER) | payer MEDICAID ==
[~2022-12-27] VITALS: Ht 170.2 cm; Wt 64.3 kg
[~2022-12-27 10:48] MED LIST changes: +ONDA8TAB13 PO
[2022-12-27 11:05] VITALS: BP 122/87
[2022-12-27] MEDS ORDERED: LIDOcaine 2% 10ml TOPICAL JELLY (Urojet) MM ONE (13:20)
[2022-12-27] MEDS ORDERED: LidoCAINE 2% Topical Jelly 11mL syringe MM ONE ×2 (13:20)
[2022-12-27] MEDS ORDERED: MAGN296S68 PO (13:38)
== END 2022-12-27 14:26 | disposition home or self-care (01) ==
LOC: ER 10:48
DX: K59.00 Constipation, unspecified (principal); R62.50 Unspecified lack of expected normal physiological development in childhood; R11.10 Vomiting, unspecified; K21.9 Gastro-esophageal reflux disease without esophagitis; Z95.0 Presence of cardiac pacemaker; Z88.2 Allergy status to sulfonamides; Z88.1 Allergy status to other antibiotic agents; Z88.8 Allergy status to other drugs, medicaments and biological substances; Z79.899 Other long term (current) drug therapy
CPT/HCPCS: 99283

== ENCOUNTER 2022-12-30 10:33 | Emergency (ER) | payer MEDICAID ==
[~2022-12-30] VITALS: Ht 170.2 cm; Wt 64.0 kg
[~2022-12-30 10:33] MED LIST changes: +MAGN296S68 PO
[2022-12-30 15:36] LABS: BASOPHILS # (AUTO) 0.1 X10'3 (0-0.2); EOSINOPHILS # (AUTO) 0.4 X10'3 (0-0.9); EOSINOPHILS % (AUTO) 7.2 % (0-6); HEMATOCRIT 43.7 % (42.0-52.0); HEMOGLOBIN 14.7 g/dl (14.0-17.9); LYMPHOCYTES # (AUTO) 1.9 X10'3 (1.1-4.8); LYMPHOCYTES % (AUTO) 36.4 % (21-51); MEAN CORPUSCULAR HEMOGLOBIN 32.1 PG (27.0-31.0); MEAN CORPUSCULAR HGB CONC 33.7 g/dL (33.0-36.5); MEAN CORPUSCULAR VOLUME 95.4 FL (78-98); MEAN PLATELET VOLUME 8.9 FL (7.4-10.4); MONOCYTES # (AUTO) 0.4 X10'3 (0-0.9); MONOCYTES % (AUTO) 7.4 % (2-12); NEUTROPHILS # (AUTO) 2.5 X10'3 (1.8-7.7); PLATELET COUNT 276 X10'3 (140-440); RED BLOOD COUNT 4.58 X10'6 (4.70-6.10); RED CELL DISTRIBUTION WIDTH 14.6 % (11.5-14.5); WHITE BLOOD COUNT 5.2 X10'3 (4.5-11.0)
[2022-12-30 15:50] LABS: ALANINE AMINOTRANSFERASE 27 U/L (12-78); ALBUMIN 3.8 G/DL (3.4-5.0); ALBUMIN/GLOBULIN RATIO 0.9 (1.1-1.5); ALKALINE PHOSPHATASE 105 IU/L (46-116); ANION GAP 7 (8-16); ASPARTATE AMINO TRANSFERASE 31 U/L (10-37); BILIRUBIN,TOTAL 0.2 MG/DL (0.1-1.0); BLOOD UREA NITROGEN 12 MG/DL (7-18); BUN/CREATININE RATIO 34.3 (5.4-32.0); CALCIUM 9.1 MG/DL (8.5-10.1); CHLORIDE 101 MMOL/L (99-107); CREATININE 0.35 MG/DL (0.60-1.10); GLUCOSE 100 MG/DL (70-104); POTASSIUM 4.3 MMOL/L (3.5-5.1); SODIUM 139 MMOL/L (135-145); TOTAL CARBON DIOXIDE 31.2 MMOL/L (24-32); eGFR > 90 ML/MIN
--- NOTE | 2022-12-30 16:19 | NUR ---
G tube flushed with sterile water by Sabra [place]
[2022-12-30] MEDS ORDERED: diatrozoate meglu/diatrozoate sod (37% iodine) 120ML oral solution PO ONE (16:20)
--- NOTE | 2022-12-30 16:21 | NUR ---
drain sponge under G tube
--- NOTE | 2022-12-30 16:45 | NUR ---
pt cleaned and changed. per radiology , " ok to mix half and half for gastrin." Addendum: 12/30/22 at 1646 by TL gastrogafin
[2022-12-30] MEDS ORDERED: diatr meglu/diatrizoate 30ml oral sol.-(3 dose) bottle PO ONE (16:57)
--- NOTE | 2022-12-30 17:09 | NUR ---
gastrografin given via G tube
[2022-12-30 17:13] VITALS: BP 148/108
--- NOTE | 2022-12-30 17:20 | NUR ---
radiology contacted about gastrografin already been given. Radiology to see pt for portable xray Addendum: 12/30/22 at 1721 by TL note by sergio riley rn . allyson le
--- NOTE | 2022-12-30 19:06 | NUR ---
Bladder scanned 85ml urine.
== END 2022-12-30 19:53 | disposition home or self-care (01) ==
LOC: ER 10:36
DX: K94.20 Gastrostomy complication, unspecified (principal); R11.10 Vomiting, unspecified; R19.7 Diarrhea, unspecified; K59.00 Constipation, unspecified; K21.9 Gastro-esophageal reflux disease without esophagitis; Z88.2 Allergy status to sulfonamides; Z88.0 Allergy status to penicillin; Z79.899 Other long term (current) drug therapy; Z79.1 Long term (current) use of non-steroidal anti-inflammatories (NSAID); Z79.2 Long term (current) use of antibiotics
CPT/HCPCS: 36415; 74019; 80053; 85025; 99284; Q9963; A6402

== ENCOUNTER 2023-01-26 11:10 | Day surgery (SDC) | payer MEDICAID ==
[~2023-01-26] VITALS: Ht 167.6 cm; Wt 64.0 kg
[~2023-01-26 11:10] MED LIST changes: -GABA250S2 OGT; +GABA250S6 OGT
[2023-01-26 11:28] VITALS: BP 134/89
--- NOTE | 2023-01-26 11:30 | NUR ---
Angio at bedside, g tube exchanged.
== END 2023-01-26 12:15 | disposition home or self-care (01) ==
LOC: SSTAY O 11:10
PROVIDERS: ATTEND Radiology Vascular & Interventional Radiology
DX: Z43.1 Encounter for attention to gastrostomy (principal)
CPT/HCPCS: 43762; 74018; B4087

== ENCOUNTER 2023-03-29 06:42 | Day surgery (SDC) | payer MEDICAID ==
[~2023-03-29] VITALS: Ht 172.7 cm; Wt 61.8 kg
[2023-03-29 07:00] VITALS: BP 139/108
[2023-03-29] MEDS ORDERED: fentaNYL/PF 50MCG/1 ML 2ML syringe ONE ×2 (07:27→08:39)
[2023-03-29] MEDS ORDERED: MIDAZolam 1 MG/ML 5ML VIAL ONE ×2 (07:28→08:40)
[2023-03-29] MEDS ORDERED: [UNRECOGNIZED DRUG - CODE] (07:39)
[2023-03-29] MEDS ORDERED: PEG31POW PO (07:39)
[2023-03-29] MEDS ORDERED: [UNRECOGNIZED DRUG - CODE] (07:39)
[2023-03-29] MEDS ORDERED: PHEN125O3 PO (07:39)
[2023-03-29] MEDS ORDERED: LACT1CAP65 PO (07:39)
[2023-03-29] MEDS ORDERED: DIAZ15SP (07:39)
[2023-03-29] MEDS ORDERED: LANS30CA56 PO (07:39)
[2023-03-29] MEDS ORDERED: VIT K (07:39)
[2023-03-29] MEDS ORDERED: GUAI120L55 PO (07:39)
[2023-03-29] MEDS ORDERED: SENN-263 PO (07:39)
[2023-03-29] MEDS ORDERED: ACET-1008 PO (07:39)
[2023-03-29] MEDS ORDERED: diphenhydrAMINE 50 mg/ml inj ONE (08:31)
[2023-03-29 09:07] VITALS: BP 150/91
[2023-03-29 09:17] VITALS: BP 161/87
[2023-03-29 09:27] VITALS: BP 141/74
[2023-03-29 09:37] VITALS: BP 140/71
== END 2023-03-29 09:40 | disposition home or self-care (01) ==
LOC: GI LAB 06:42
PROVIDERS: ATTEND Internal Medicine Gastroenterology
DX: R19.7 Diarrhea, unspecified (principal); R11.2 Nausea with vomiting, unspecified; K63.89 Other specified diseases of intestine; K29.70 Gastritis, unspecified, without bleeding; K31.7 Polyp of stomach and duodenum; G40.909 Epilepsy, unspecified, not intractable, without status epilepticus; Z88.2 Allergy status to sulfonamides; Z88.1 Allergy status to other antibiotic agents; Z88.7 Allergy status to serum and vaccine; Z88.8 Allergy status to other drugs, medicaments and biological substances; Z91.09 Other allergy status, other than to drugs and biological substances; Z79.899 Other long term (current) drug therapy
CPT/HCPCS: 43239; 45378; 99152; 99153; J1200; J2250; J3010; J7030; Z7512; 43251; A4620; C1889

== ENCOUNTER 2023-04-27 11:01 | Day surgery (SDC) | payer MEDICAID ==
[~2023-04-27] VITALS: Ht 165.1 cm; Wt 59.0 kg
[~2023-04-27 11:01] MED LIST changes: +ACET-1008 PO; -DEXL60CA3 OGT; +DIAZ15SP; +GUAI120L55 PO; -LACO200T4 OGT; +LACT1CAP65 PO; -LACT1CAP75 OGT; +LANS30CA56 PO; -MAGN296S68 PO; -ONDA8TAB13 PO; +PEG31POW PO; +PHEN125O3 PO; -PHYT5TAB30 OGT; +SENN-263 PO; +VIT K; +[UNRECOGNIZED DRUG - CODE]; +[UNRECOGNIZED DRUG - CODE]
[2023-04-27] MEDS ORDERED: normal saline 1000ml 1,000 ML IV PRN (11:15)
[2023-04-27 11:30] VITALS: BP 144/89
[2023-04-27] MEDS ORDERED: iohexol 300 MG/1 ML 50ml polymer ONE (12:26)
== END 2023-04-27 13:50 | disposition home or self-care (01) ==
LOC: SSTAY O 11:01
PROVIDERS: ATTEND Radiology Vascular & Interventional Radiology
DX: Z43.1 Encounter for attention to gastrostomy (principal); Z88.1 Allergy status to other antibiotic agents; Z88.2 Allergy status to sulfonamides; Z88.8 Allergy status to other drugs, medicaments and biological substances; Z91.09 Other allergy status, other than to drugs and biological substances; Z88.7 Allergy status to serum and vaccine; Z79.899 Other long term (current) drug therapy
CPT/HCPCS: 43762; 74018; B4087; Q9967; 49465; 85025

== ENCOUNTER 2023-07-16 05:01 | Inpatient (IN) | payer MEDICAID ==
[~2023-07-16] VITALS: Ht 170.2 cm; Wt 67.9 kg
[~2023-07-16 05:01] MED LIST changes: -DIAZ15SP; +DIAZ15SP NS
--- NOTE | 2023-07-16 06:15 | NUR ---
recieved verbal order from dr joseph for rectal tylenol 975 or 1000mg to treat fever depending on availablilty.
[2023-07-16] MEDS ORDERED: normal saline 1000ML IV soln IVB ONE (06:20)
[2023-07-16] MEDS ORDERED: acetaminophen 650mg rectal suppository RC ONE (06:20)
--- NOTE | 2023-07-16 06:22 | NUR ---
per , he will enter sepsis protocol orders.
[2023-07-16] MEDS ORDERED: LidoCAINE 2% Topical Jelly 11mL syringe TOP ONE (06:55)
[2023-07-16] MEDS ORDERED: levoFLOXACIN-Levaquin 750MG/D5 150 ML IV STA (06:59)
[2023-07-16 09:05] LABS: APTT 28 SECONDS (22-32); BASOPHILS # (AUTO) 0.1 X10'3 (0-0.2); BASOPHILS % (AUTO) 0.7 % (0-1); EOSINOPHILS # (AUTO) 0.1 X10'3 (0-0.9); EOSINOPHILS % (AUTO) 0.7 % (0-6); HEMATOCRIT 46.4 % (42.0-52.0); HEMOGLOBIN 15.5 g/dl (14.0-17.9); INR 1.2 INR; LYMPHOCYTES % (AUTO) 7.7 % (21-51); MEAN CORPUSCULAR HEMOGLOBIN 32.4 PG (27.0-31.0); MEAN CORPUSCULAR HGB CONC 33.4 g/dL (33.0-36.5); MEAN CORPUSCULAR VOLUME 96.8 FL (78-98); MONOCYTES % (AUTO) 7.5 % (2-12); NEUTROPHILS # (AUTO) 10.6 X10'3 (1.8-7.7); NEUTROPHILS % (AUTO) 83.4 % (42-75); PLATELET COUNT 331 X10'3 (140-440); PROTHROMBIN TIME 12.7 SECONDS (9.0-12.0); RED BLOOD COUNT 4.79 X10'6 (4.70-6.10); RED CELL DISTRIBUTION WIDTH 14.2 % (11.5-14.5); WHITE BLOOD COUNT 12.8 X10'3 (4.5-11.0)
[2023-07-16 09:22] LABS: ALANINE AMINOTRANSFERASE 24 U/L (12-78); ALBUMIN 3.7 G/DL (3.4-5.0); ALBUMIN/GLOBULIN RATIO 0.8 (1.1-1.5); ALKALINE PHOSPHATASE 82 IU/L (46-116); ANION GAP 8 (8-16); ASPARTATE AMINO TRANSFERASE 26 U/L (10-37); BILIRUBIN,TOTAL 0.3 MG/DL (0.1-1.0); BLOOD UREA NITROGEN 6 MG/DL (7-18); BUN/CREATININE RATIO 11.5 (10.0-20.0); CALCIUM 9.3 MG/DL (8.5-10.1); CHLORIDE 99 MMOL/L (99-107); CREATININE 0.52 MG/DL (0.60-1.10); GLUCOSE 96 MG/DL (70-104); POTASSIUM 4.1 MMOL/L (3.5-5.1); SODIUM 134 MMOL/L (135-145); TOTAL CARBON DIOXIDE 27.1 MMOL/L (24-32); TOTAL PROTEIN 8.2 G/DL (6.4-8.2); eCRCL 167 ML/MIN; eGFR > 90 ML/MIN
[2023-07-16 09:25] LABS: C-REACTIVE PROTEIN 2.38 MG/DL (0.0-0.5); CREATINE KINASE 93 U/L (39-308); MAGNESIUM 2.1 MG/DL (1.5-2.4); PRO BRAIN NATRIURETIC PEPTIDE < 30 PG/ML (0-125)
[2023-07-16 10:10] LABS: BILIRUBIN,URINE NEGATIVE (Neg); CLARITY,URINE SLIGHTLY CLOUDY (Clear); COLOR,URINE YELLOW (Yellow); GLUCOSE, URINE NEGATIVE (Neg); KETONES,URINE NEGATIVE (Neg); LEUKOCYTE ESTERASE ,URINE NEGATIVE (Neg); NITRITES, URINE NEGATIVE (Neg); OCCULT BLOOD,URINE LARGE (Neg); PH,URINE 8.5 (4.8-8.0); PROTEIN,URINE NEGATIVE (Neg); UROBILINOGEN,URINE 0.2 E.U/dL (0.2-1.0)
[2023-07-16] MEDS ORDERED: methylPREDNISolone sod succ 125mg/2ml vial IV ONE (10:15)
[2023-07-16 10:30] LABS: UA COLLECTION TYPE FOLEY CATH
[2023-07-16 10:32] LABS: MUCUS STRANDS FEW /LPF (Neg); SQUAMOUS EPITHELIAL CELL,UR NONE SEEN /LPF (FEW)
[2023-07-16 10:34] LABS: BACTERIA,URINE FEW /HPF (Neg); RBC,URINE TNTC /HPF (0-2)
[2023-07-16] MEDS ORDERED: iohexol 350MG/ML 100ml bottle IV ONE (11:31)
[2023-07-16 11:56] LABS: C DIFF ANTIGEN NEGATIVE (NEGATIVE); C DIFF SPECIMEN=DIARRHEA? ACCEPTABLE; C DIFFICILE TOXINS A&B NEGATIVE (Neg)
[2023-07-16] MEDS ORDERED: magnesium 4gm in 100ml NS 100 ML IV PRN (12:10)
[2023-07-16] MEDS ORDERED: potassium Cl 40MEQ/1/2NS 520ml 520 ML IV PRN (12:10)
[2023-07-16] MEDS ORDERED: ondansetron/PF 4mg/2ml inj IV PRN (12:10)
[2023-07-16] MEDS ORDERED: acetaminophen 325mg tablet PO PRN (12:10)
[2023-07-16] MEDS: normal saline 1000ml 1,000 ML IV SCH (12:10)
[2023-07-16] MEDS ORDERED: magnesium 2GM in 50ml NS 50 ML IV PRN (12:10)
[2023-07-16] MEDS ORDERED: acetaminophen 325mg rectal suppository RC PRN (13:50)
[2023-07-16] MEDS: VANCOmycin 1250MG/NS 250ml Bag 250 ML IV SCH (13:58)
--- NOTE | 2023-07-16 14:25 | NUR ---
I called the pharmacist about my concern that patient will get piperazillin but patient is allergic to amoxicillin. Dr. Anderson was at the nurses statiion, I have discussed this with her about my concern of allergic reaction from amoxicillin per allergy list. She said that she will talk to Dr. Vaz about this. Patient is non-verbal and could not verify the allergy from amoxicillin
--- NOTE | 2023-07-16 14:34 | NUR ---
I spoke to the pharmacist about the order for zosyn and amoxicillin allergy. She said she has spoken to Dr. Anderson about this too and that she was also concern about the allergy as well. She said to me not to worry about it and that she will put the zosyn on hold
[2023-07-16] MEDS ORDERED: piperacillin/tazo 4.5gm/100ml 100 ML IV SCH (16:00)
[2023-07-16] MEDS: CEFEPIME 2 GM in NS 100ml IV.SOLN 100 ML IV SCH (16:00)
[2023-07-16] MEDS ORDERED: pantoprazole 40mg IV 80 MG in normal saline 100ml IV soln 100 ML IV SCH (16:40)
[2023-07-16] MEDS: metroNIDAZOLE-Flagyl 500mg/NS 100ml IVPB IV SCH (16:42)
--- NOTE | 2023-07-16 18:38 | NUR ---
Patient's caregiver left before the change of shift. She endorsed to me that a staff member from the facility will bring the tubing that goes to the maegan button so that tube feeding can be administered. She also endorsed that they won't have a caregiver for tonight to replace her shift
[2023-07-16] MEDS ORDERED: SODIUM CHLORIDE PO SCH (20:00)
[2023-07-16] MEDS: ascorbic acid 500mg tablet OGT SCH ×2 (20:00→23:12)
[2023-07-16] MEDS: enoxaparin 40mg/0.4ml syringe SQ SCH (20:00)
[2023-07-16] MEDS ORDERED: POTASSIUM CHLORIDE PO SCH (20:00)
[2023-07-16] MEDS: carbamide peroxide 15ml bottle RIGHT EAR SCH (20:00)
[2023-07-16] MEDS ORDERED: ASCORBIC ACID PO SCH (20:00)
[2023-07-16] MEDS ORDERED: baclofen 10mg tablet OGT SCH (20:00)
[2023-07-16] MEDS: levetiracetam 100mg/ml oral solution 5ml UD cup OGT SCH ×2 (20:00→23:12)
[2023-07-16] MEDS ORDERED: SODIUM SULFATE PO SCH (20:00)
[2023-07-16] MEDS ORDERED: [UNRECOGNIZED DRUG - OTHER] PO SCH (20:00)
[2023-07-16] MEDS: valproate sod 250mg/5ml UD oral syrup OGT SCH ×2 (20:00→23:12)
[2023-07-16] MEDS: phenytoin 100mg/4ml ***ORAL SUSPENSION OGT SCH ×2 (21:00→23:12)
[2023-07-16] MEDS ORDERED: [UNRECOGNIZED DRUG - OTHER] OGT SCH (21:00)
[2023-07-16] MEDS ORDERED: ENTERAL NUTRITION FORMULA OGT SCH (21:00)
[2023-07-16] MEDS: gabapentin 300mg capsule OGT SCH ×2 (21:00→23:12)
--- NOTE | 2023-07-16 21:49 | NUR ---
PT CAREGIVER CESAR HAS NOT ARRIVED WITH EXTENSION TUBING FOR PT KEHINDE BUTTON, FOR MED AND FOOD ADMINISTRATION. CALL PLACED TO SAUL, RIVER GUIDE, SAYING SHE WAS UNDER THE IMPRESSION THAT WE HAD ALL THE NECESSARY EQUIPMENT TO CARE FOR THIS PT, AND WILL SEE WHAT SHE CAN DO ABOUT PROVIDING THE EXTENTION TUBING FOR MEDS AND FOOD
--- NOTE | 2023-07-16 23:54 | NUR ---
PT PLACED ON HOSPITAL BED FOR COMFORT.
[2023-07-17] MEDS: CEFEPIME 2 GM in NS 100ml IV.SOLN 100 ML IV SCH ×2 (00:20→09:15)
[2023-07-17] MEDS: lactobacillus rhamnosus 10,000 MMU CELLS/CAPSULE OGT SCH ×4 (00:20→23:50)
[2023-07-17] MEDS: metroNIDAZOLE-Flagyl 500mg/NS 100ml IVPB IV SCH ×4 (00:58→23:49)
[2023-07-17] MEDS: VANCOmycin 1250MG/NS 250ml Bag 250 ML IV SCH ×2 (02:13→14:00)
[2023-07-17] MEDS: normal saline 1000ml 1,000 ML IV SCH (07:21)
[2023-07-17 07:55] LABS: ALANINE AMINOTRANSFERASE 17 U/L (12-78); ALBUMIN/GLOBULIN RATIO 0.8 (1.1-1.5); ALKALINE PHOSPHATASE 62 IU/L (46-116); ANION GAP 8 (8-16); ASPARTATE AMINO TRANSFERASE 16 U/L (10-37); BILIRUBIN,TOTAL 0.3 MG/DL (0.1-1.0); BLOOD UREA NITROGEN 17 MG/DL (7-18); BUN/CREATININE RATIO 39.5 (10.0-20.0); CALCIUM 8.5 MG/DL (8.5-10.1); CHLORIDE 108 MMOL/L (99-107); CREATININE 0.43 MG/DL (0.60-1.10); GLUCOSE 107 MG/DL (70-104); MAGNESIUM 2.4 MG/DL (1.5-2.4); PHOSPHORUS 4.3 MG/DL (2.3-4.5); POTASSIUM 3.6 MMOL/L (3.5-5.1); SODIUM 141 MMOL/L (135-145); TOTAL CARBON DIOXIDE 24.7 MMOL/L (24-32); TOTAL PROTEIN 6.6 G/DL (6.4-8.2); eCRCL 202 ML/MIN; eGFR > 90 ML/MIN
[2023-07-17 07:58] LABS: BASOPHILS # (AUTO) 0.1 X10'3 (0-0.2); BASOPHILS % (AUTO) 0.5 % (0-1); EOSINOPHILS % (AUTO) 0.1 % (0-6); HEMOGLOBIN 12.9 g/dl (14.0-17.9); LYMPHOCYTES # (AUTO) 1.4 X10'3 (1.1-4.8); LYMPHOCYTES % (AUTO) 14.3 % (21-51); MEAN CORPUSCULAR HEMOGLOBIN 33.4 PG (27.0-31.0); MEAN CORPUSCULAR VOLUME 98.2 FL (78-98); MEAN PLATELET VOLUME 8.5 FL (7.4-10.4); MONOCYTES # (AUTO) 0.9 X10'3 (0-0.9); MONOCYTES % (AUTO) 8.6 % (2-12); NEUTROPHILS # (AUTO) 7.6 X10'3 (1.8-7.7); NEUTROPHILS % (AUTO) 76.5 % (42-75); PLATELET COUNT 289 X10'3 (140-440); RED BLOOD COUNT 3.87 X10'6 (4.70-6.10); RED CELL DISTRIBUTION WIDTH 14.4 % (11.5-14.5); WHITE BLOOD COUNT 9.9 X10'3 (4.5-11.0)
[2023-07-17] MEDS: pantoprazole 40MG/NS 100ML BAG 100 ML IV SCH (08:00)
--- NOTE | 2023-07-17 08:02 | NUR ---
Pateint transferred upstairs to PCU and report called to JOSH Yeh. Pt transferred on hospital be and had all belongings.
--- NOTE | 2023-07-17 08:02 | NUR ---
Patient in room PCU 3013. I have received report from Nichole and had the opportunity to ask questions and assume patient care.
--- NOTE | 2023-07-17 10:57 | NUR ---
TF Consult: Pt admit DX possible healthcare vs aspiration PNA and leukocytosis hx cerebral clary G-tube dependent for nutrition at baseline receives Jevity 1.5 365ml bolus feeds TID at care facility per EMR; Jevity 1.5 not carried here. Pending scaled wt this admit; EN recs below using IBW MD notified. Noted pt receiving Dilantin TID; this will need to scheduled separately as pt will need to be off EN for 2 hours before and after each dosage to optimize effectiveness per clinical pharmacist; ALIVIA d/w RN and delfina SHINE. LBM 07/16 per EMR. Will monitor for EN tolerance and adjustment needs as medically indicated. Rec: 1. Bolus G-tube feeds per MD using Pvito 1.5 375ml goal bolus TID; to provide 1125ml volume/day, 1689 kcals, 844ml water, and 106g protein. 2. additional water flush 100ml before and after each bolus; monitor serum Na. Na 141mmol/L this AM up from 134 yesterday s/p NS 3. PALB Q /; daily scaled wt 4. Monitor for EN tolerance and adjustment needs 5. Consider Dilantin TID @ 10am, 6pm, 2am if physician agreeable since EN off for 4 hours at these times 6. routine bowel care Addendum: 07/17/23 at [address] TF Consult: Pt admit DX possible healthcare vs aspiration PNA and leukocytosis hx cerebral clary G-tube dependent for nutrition at baseline receives Jevity 1.5 365ml bolus feeds TID at care facility per EMR. Per RN today, facility brought Peptamen in from outside; noted hx diarrhea recently MARINATOR possibly why change in regimen though will use our own formulary this admit. Pending scaled wt this admit; EN recs below using IBW MD notified. Noted pt receiving Dilantin TID; clinical pharmacist confirms this cannot be given 2 hours before or after bolus feeds. ALIVIA d/w RN and paged MD regarding Dilantin schedule timing change if agreeable. LBM 07/16 per EMR. Will monitor for EN tolerance and adjustment needs as medically indicated. Rec: 1. Bolus G-tube feeds per MD using Pivot 1.5 at 375ml goal bolus TID; to provide 1125ml volume/day, 1689 kcals, 844ml water, and 106g protein. 2. additional water flush 100ml before and after each bolus; monitor serum Na 141mmol/L this AM up from 134 on admit 3. PALB Q /; daily scaled wt 5. Consider Dilantin timing at 10am, 2pm, 6pm to follow guidelines of not providing 2 hours before or after bolus feeds if physician agreeable 6. Monitor for EN tolerance and adjustment needs 7. Bowel care per rx Addendum: 07/17/23 at [address] Rec: 1. Bolus G-tube feeds per MD using Pivot 1.5 at 375ml goal bolus TID; to provide 1125ml volume/day, 1689 kcals, 844ml water, and 106g protein. Initiate at goal bolus since pt tolerates at baseline per EMR.
[2023-07-17] MEDS ORDERED: MEP5T GT (11:15)
[2023-07-17] MEDS ORDERED: POTA40LI16 GT (11:17)
[2023-07-17] MEDS ORDERED: SENN-263 GT (11:18)
[2023-07-17] MEDS ORDERED: ASCO-100 GT (11:25)
[2023-07-17] MEDS ORDERED: IBUP-2417 GT (11:28)
[2023-07-17] MEDS ORDERED: IBUP-1984 PO (11:29)
[2023-07-17] MEDS ORDERED: LACO200T2 GT (11:32)
[2023-07-17] MEDS ORDERED: levoFLOXACIN-Levaquin 750MG/D5 150 ML IV STA (12:07)
--- NOTE | 2023-07-17 12:42 | NUR ---
Lab called and said patient has a positive blood culture. Sample was taken from his right arm on Jul 16 in aerobic bottle and took 21.45 hours. Gram positive for cocci in clusters. I called Resident Justin and told her the results.
[2023-07-17] MEDS: gabapentin 300mg capsule OGT SCH ×2 (13:02→21:19)
[2023-07-17] MEDS: carbamide peroxide 15ml bottle RIGHT EAR SCH ×2 (13:03→21:20)
[2023-07-17 18:00] VITALS: BP 94/56; PULSE 68; RESP 16; TEMP 97.6; O2SAT 93
--- NOTE | 2023-07-17 18:35 | NUR ---
Problems reprioritized. Patient report given, questions answered & plan of care reviewed with Marcia.
--- NOTE | 2023-07-17 18:55 | NUR ---
Patient in room PCU 3013. I have received report from Ruba MORENO, and had the opportunity to ask questions and assume patient care.
[2023-07-17] MEDS: enoxaparin 40mg/0.4ml syringe SQ SCH (21:18)
[2023-07-17] MEDS: ascorbic acid 500mg tablet OGT SCH (21:19)
[2023-07-17] MEDS: levetiracetam 100mg/ml oral solution 5ml UD cup OGT SCH (21:33)
[2023-07-17] MEDS: LACOSAMIDE 50 MG TABLET PO SCH (21:34)
[2023-07-17 22:00] VITALS: BP 138/73; PULSE 105; RESP 20; TEMP 97.6; O2SAT 92
[2023-07-17] MEDS: valproate sod 250mg/5ml UD oral syrup OGT SCH (22:22)
[2023-07-18] MEDS ORDERED: VANCOMYCIN LEVEL IV ONE (01:30)
[2023-07-18 02:12] LABS: ALANINE AMINOTRANSFERASE 32 U/L (12-78); ALBUMIN 3.2 G/DL (3.4-5.0); ALBUMIN/GLOBULIN RATIO 0.8 (1.1-1.5); ALKALINE PHOSPHATASE 67 IU/L (46-116); ANION GAP 6 (8-16); ASPARTATE AMINO TRANSFERASE 30 U/L (10-37); BILIRUBIN,TOTAL 0.3 MG/DL (0.1-1.0); BLOOD UREA NITROGEN 16 MG/DL (7-18); CALCIUM 8.3 MG/DL (8.5-10.1); CHLORIDE 104 MMOL/L (99-107); GLUCOSE 118 MG/DL (70-104); MAGNESIUM 1.9 MG/DL (1.5-2.4); PHOSPHORUS 2.3 MG/DL (2.3-4.5); POTASSIUM 3.2 MMOL/L (3.5-5.1); SODIUM 137 MMOL/L (135-145); TOTAL CARBON DIOXIDE 27.4 MMOL/L (24-32); TOTAL PROTEIN 7.2 G/DL (6.4-8.2); VANCOMYCIN,TROUGH 8.2 ug/mL (10.0-20.0); eCRCL 173 ML/MIN; eGFR > 90 ML/MIN
[2023-07-18 02:36] LABS: PREALBUMIN 23.5 MG/DL (19-36)
[2023-07-18] MEDS: acetaminophen 325mg/10.15ml oral unit dose solution OGT PRN (02:53)
[2023-07-18] MEDS: VANCOmycin 1250MG/NS 250ml Bag 250 ML IV SCH (02:53)
[2023-07-18] MEDS: normal saline 1000ml 1,000 ML IV SCH ×2 (03:21→23:55)
[2023-07-18 03:27] VITALS: BP 134/71; PULSE 108; RESP 15; TEMP 99.1; O2SAT 90
[2023-07-18 06:00] VITALS: BP 108/81; PULSE 81; RESP 20; TEMP 97.6; O2SAT 97
--- NOTE | 2023-07-18 06:40 | NUR ---
Problems reprioritized. Patient report given, questions answered & plan of care reviewed with Ruba MORENO. Pt stable at shift change.
[2023-07-18 07:21] LABS: BASOPHILS # (AUTO) 0.1 X10'3 (0-0.2); BASOPHILS % (AUTO) 0.9 % (0-1); EOSINOPHILS # (AUTO) 0.2 X10'3 (0-0.9); EOSINOPHILS % (AUTO) 2.3 % (0-6); HEMATOCRIT 38.7 % (42.0-52.0); LYMPHOCYTES # (AUTO) 1.9 X10'3 (1.1-4.8); LYMPHOCYTES % (AUTO) 23.6 % (21-51); MEAN CORPUSCULAR HEMOGLOBIN 32.6 PG (27.0-31.0); MEAN CORPUSCULAR HGB CONC 33.7 g/dL (33.0-36.5); MEAN CORPUSCULAR VOLUME 96.7 FL (78-98); MONOCYTES # (AUTO) 0.7 X10'3 (0-0.9); MONOCYTES % (AUTO) 8.1 % (2-12); NEUTROPHILS # (AUTO) 5.2 X10'3 (1.8-7.7); NEUTROPHILS % (AUTO) 65.1 % (42-75); PLATELET COUNT 232 X10'3 (140-440); RED CELL DISTRIBUTION WIDTH 14.1 % (11.5-14.5)
[2023-07-18] MEDS: metroNIDAZOLE-Flagyl 500mg/NS 100ml IVPB IV SCH ×3 (07:28→23:54)
[2023-07-18 08:00] VITALS: RESP 20; O2SAT 97
[2023-07-18] MEDS: levoFLOXACIN-Levaquin 750MG/D5 150 ML IV SCH (08:40)
[2023-07-18] MEDS: levetiracetam 100mg/ml oral solution 5ml UD cup OGT SCH ×2 (10:07→20:48)
[2023-07-18] MEDS: ascorbic acid 500mg tablet OGT SCH ×2 (10:07→20:47)
[2023-07-18] MEDS: lactobacillus rhamnosus 10,000 MMU CELLS/CAPSULE OGT SCH ×3 (10:07→23:45)
[2023-07-18] MEDS: gabapentin 300mg capsule OGT SCH ×3 (10:07→20:47)
[2023-07-18] MEDS: carbamide peroxide 15ml bottle RIGHT EAR SCH ×2 (10:08→20:49)
[2023-07-18] MEDS: pantoprazole 40MG/NS 100ML BAG 100 ML IV SCH (10:34)
[2023-07-18] MEDS: valproate sod 250mg/5ml UD oral syrup OGT SCH ×2 (11:53→20:48)
[2023-07-18] MEDS: LACOSAMIDE 50 MG TABLET PO SCH ×2 (11:53→20:47)
[2023-07-18] MEDS: vancomycin 1,750 MG in NS 350ml IV soln IV SCH (14:46)
[2023-07-18 15:00] VITALS: BP 122/86; PULSE 86; RESP 16; TEMP 97.7; O2SAT 98
--- NOTE | 2023-07-18 17:36 | NUR ---
AGREE WITH TREE WRAPPER AM ASSESSMENT
[2023-07-18 18:00] VITALS: BP 127/85; PULSE 88; RESP 28; TEMP 97.8; O2SAT 100
--- NOTE | 2023-07-18 19:07 | NUR ---
Problems reprioritized. Patient report given, questions answered & plan of care reviewed with Marcia.
--- NOTE | 2023-07-18 20:03 | NUR ---
ordnance engineering technician informed nurse pt had a 3.3 second pause in cardiac rhythm. Provider Micheal stated to continue to monitor Pt.
[2023-07-18] MEDS: enoxaparin 40mg/0.4ml syringe SQ SCH (20:51)
[2023-07-19 00:29] VITALS: BP 127/76; PULSE 105; RESP 20; TEMP 99.5; O2SAT 92
[2023-07-19] MEDS: vancomycin 1,750 MG in NS 350ml IV soln IV SCH (03:13)
[2023-07-19 03:42] VITALS: BP 136/97; PULSE 105; RESP 18; TEMP 99.2; O2SAT 93
[2023-07-19] MEDS: acetaminophen 325mg/10.15ml oral unit dose solution OGT PRN ×2 (04:09→10:11)
[2023-07-19 06:00] VITALS: BP 129/83; PULSE 84; RESP 25; TEMP 98.2; O2SAT 96
--- NOTE | 2023-07-19 06:37 | NUR ---
Problems reprioritized. Patient report given, questions answered & plan of care reviewed with Janine KING. Pt stable at shift change.
[2023-07-19 07:35] LABS: BASOPHILS # (AUTO) 0.1 X10'3 (0-0.2); EOSINOPHILS # (AUTO) 0.3 X10'3 (0-0.9); EOSINOPHILS % (AUTO) 3.7 % (0-6); HEMATOCRIT 39.9 % (42.0-52.0); HEMOGLOBIN 13.7 g/dl (14.0-17.9); LYMPHOCYTES # (AUTO) 2.1 X10'3 (1.1-4.8); LYMPHOCYTES % (AUTO) 27.1 % (21-51); MEAN CORPUSCULAR HEMOGLOBIN 33.2 PG (27.0-31.0); MEAN CORPUSCULAR HGB CONC 34.4 g/dL (33.0-36.5); MEAN CORPUSCULAR VOLUME 96.6 FL (78-98); MEAN PLATELET VOLUME 8.3 FL (7.4-10.4); MONOCYTES # (AUTO) 0.8 X10'3 (0-0.9); MONOCYTES % (AUTO) 10.1 % (2-12); NEUTROPHILS # (AUTO) 4.4 X10'3 (1.8-7.7); NEUTROPHILS % (AUTO) 58.1 % (42-75); PLATELET COUNT 298 X10'3 (140-440); RED BLOOD COUNT 4.13 X10'6 (4.70-6.10); RED CELL DISTRIBUTION WIDTH 14.3 % (11.5-14.5); WHITE BLOOD COUNT 7.6 X10'3 (4.5-11.0)
[2023-07-19 07:51] LABS: ALANINE AMINOTRANSFERASE 28 U/L (12-78); ALBUMIN 3.1 G/DL (3.4-5.0); ALBUMIN/GLOBULIN RATIO 0.8 (1.1-1.5); ALKALINE PHOSPHATASE 61 IU/L (46-116); ANION GAP 5 (8-16); ASPARTATE AMINO TRANSFERASE 29 U/L (10-37); BILIRUBIN,TOTAL 0.5 MG/DL (0.1-1.0); BLOOD UREA NITROGEN 12 MG/DL (7-18); BUN/CREATININE RATIO 31.6 (10.0-20.0); CALCIUM 8.6 MG/DL (8.5-10.1); CHLORIDE 104 MMOL/L (99-107); CREATININE 0.38 MG/DL (0.60-1.10); GLUCOSE 103 MG/DL (70-104); MAGNESIUM 2.3 MG/DL (1.5-2.4); POTASSIUM 3.5 MMOL/L (3.5-5.1); SODIUM 138 MMOL/L (135-145); TOTAL CARBON DIOXIDE 29.1 MMOL/L (24-32); TOTAL PROTEIN 6.9 G/DL (6.4-8.2); eCRCL 251 ML/MIN; eGFR > 90 ML/MIN
[2023-07-19 08:00] VITALS: RESP 16; O2SAT 96
[2023-07-19] MEDS: levoFLOXACIN-Levaquin 750MG/D5 150 ML IV SCH (08:00)
--- NOTE | 2023-07-19 09:00 | NUR ---
ATTENDING STATES NO NEED FOR ACCUCHECKS ON THIS PT.
[2023-07-19] MEDS: metroNIDAZOLE-Flagyl 500mg/NS 100ml IVPB IV SCH (10:07)
[2023-07-19] MEDS: levetiracetam 100mg/ml oral solution 5ml UD cup OGT SCH (10:07)
[2023-07-19] MEDS: LACOSAMIDE 50 MG TABLET PO SCH (10:07)
[2023-07-19] MEDS: valproate sod 250mg/5ml UD oral syrup OGT SCH (10:09)
[2023-07-19] MEDS: gabapentin 300mg capsule OGT SCH (10:10)
[2023-07-19] MEDS: ascorbic acid 500mg tablet OGT SCH (10:10)
[2023-07-19] MEDS: lactobacillus rhamnosus 10,000 MMU CELLS/CAPSULE OGT SCH (10:11)
[2023-07-19] MEDS: pantoprazole 40MG/NS 100ML BAG 100 ML IV SCH (10:12)
[2023-07-19] MEDS: carbamide peroxide 15ml bottle RIGHT EAR SCH (10:13)
[2023-07-19] MEDS ORDERED: LACOSAMIDE 50 MG TABLET PO ONE (10:20)
[2023-07-19 11:00] VITALS: BP 110/76; PULSE 83; RESP 29; TEMP 98.3; O2SAT 97
[2023-07-19] MEDS ORDERED: LEVO750T68 PO (12:11)
[2023-07-19] MEDS ORDERED: METR-159 PO (12:11)
--- NOTE | 2023-07-19 14:00 | NUR ---
DISCHARGE PAPERWORK REVIEWED WITH FELIX- PT'S NURSE FROM [facility]. AWARE OF NEW ANTIBIOTICS. PIV DC'D, PRESSURE BANDAGE APPLIED. PT. LEFT WITH ALL OF HIS BELONGINGS.
[2023-07-20] MEDS ORDERED: VANCOMYCIN LEVEL IV ONE (01:30)
== END 2023-07-19 14:00 | disposition home or self-care (01) | DRG 137 ==
LOC: ER 05:02 → ED HOLD 12:24 → EDBEDREQ 07-17 05:27 → PCU 3S 07-17 08:04
PROVIDERS: ADMIT Internal Medicine; ATTEND Internal Medicine
PROC: B32T1ZZ Computerized Tomography (CT Scan) of Left Pulmonary Artery using Low Osmolar Contrast (ICD-10-PCS; principal; 2023-07-16)
PROC: B3201ZZ Computerized Tomography (CT Scan) of Thoracic Aorta using Low Osmolar Contrast (ICD-10-PCS; 2023-07-16)
PROC: B32S1ZZ Computerized Tomography (CT Scan) of Right Pulmonary Artery using Low Osmolar Contrast (ICD-10-PCS; 2023-07-16)
DX: J69.0 Pneumonitis due to inhalation of food and vomit (principal); G80.9 Cerebral palsy, unspecified; Z20.822 Contact with and (suspected) exposure to COVID-19; Z88.2 Allergy status to sulfonamides; Z93.1 Gastrostomy status; Z88.8 Allergy status to other drugs, medicaments and biological substances; Z99.3 Dependence on wheelchair
CPT/HCPCS: 36415; 71045; 71275; 80053; 80202; 81001; 82550; 82948; 83605; 83735; 83880; 84100; 84134; 84145; 84484; 85025; 85610; 85651; 85730; 86140; 87040; 87045; 87046; 87077; 87088; 87186; 87324; 87449; 87502; 87503; 87811; 93005; 99285; A6213; A6258; A6449; C1758; C9113; G0378; J0692; J1650; J1953; J1956; J2930; J3370; J3490; J7030; J7040; Q9967

== ENCOUNTER 2023-07-31 11:08 | Day surgery (SDC) | payer MEDICAID ==
[~2023-07-31] VITALS: Ht 170.2 cm; Wt 64.5 kg
[~2023-07-31 11:08] MED LIST changes: +ASCO-100 GT; -ASCO500C17 OGT; +IBUP-1984 PO; +LACO200T2 GT; +MEP5T GT; +METR-159 PO; -PHEN125O3 PO; -POTA-208; +POTA40LI16 GT; +SENN-263 GT; -SENN-263 PO; -VIT K
[2023-07-31] MEDS ORDERED: normal saline 1000ml 1,000 ML IV PRN (11:25)
[2023-07-31 11:30] VITALS: BP 118/69; PULSE 91; RESP 16; TEMP 98.4; O2SAT 91
[2023-07-31] MEDS ORDERED: iohexol 300 MG/1 ML 50ml polymer ONE (11:50)
--- NOTE | 2023-07-31 12:10 | NUR ---
G-tube exchange per IR Staff RNs. PRIETO done for verification of placement. Addendum: 07/31/23 at 1610 by Aakash Willett RN Amended: Links added.
--- NOTE | 2023-07-31 12:20 | NUR ---
IDA verification done and X-ray cleared by Dr. Sebastien Sesay. Orders given by Dr. Sebastien Sesay for pt discharge to correction. Addendum: 07/31/23 at 1610 by Aakash Willett RN Amended: Links added.
[2023-07-31 12:22] VITALS: BP 124/73; PULSE 85; RESP 18; O2SAT 93
[2023-07-31] MEDS ORDERED: VIT500LI PEG (15:37)
[2023-07-31] MEDS ORDERED: BISA10SU11 RC (15:37)
== END 2023-07-31 12:29 | disposition home or self-care (01) ==
LOC: SSTAY O 11:08
PROVIDERS: ATTEND Radiology Diagnostic Radiology
DX: Z43.1 Encounter for attention to gastrostomy (principal); G80.0 Spastic quadriplegic cerebral palsy; G40.909 Epilepsy, unspecified, not intractable, without status epilepticus; Z88.1 Allergy status to other antibiotic agents; Z88.2 Allergy status to sulfonamides; Z88.8 Allergy status to other drugs, medicaments and biological substances; Z88.7 Allergy status to serum and vaccine; Z91.048 Other nonmedicinal substance allergy status; Z79.899 Other long term (current) drug therapy
CPT/HCPCS: 43762; 74018; Q9967; B4087

== ENCOUNTER 2023-10-06 02:04 | Emergency (ER) | payer MEDICAID ==
[~2023-10-06] VITALS: Ht 152.4 cm; Wt 70.5 kg
[~2023-10-06 02:04] MED LIST changes: +BISA10SU11 RC; -METR-159 PO; +VIT500LI PEG
[2023-10-06 07:05] VITALS: TEMP 98.4
[2023-10-06 10:03] VITALS: BP 142/104; PULSE 69; RESP 16; O2SAT 97
== END 2023-10-06 11:28 | disposition home or self-care (01) ==
LOC: ER 02:05
DX: K94.20 Gastrostomy complication, unspecified (principal); K21.9 Gastro-esophageal reflux disease without esophagitis; Z88.1 Allergy status to other antibiotic agents; Z88.2 Allergy status to sulfonamides; Z88.8 Allergy status to other drugs, medicaments and biological substances; Z79.899 Other long term (current) drug therapy; Z79.1 Long term (current) use of non-steroidal anti-inflammatories (NSAID); Z79.2 Long term (current) use of antibiotics
CPT/HCPCS: 43762; 71045; 99284; B4087; 99285

== ENCOUNTER 2024-02-26 11:40 | Inpatient (IN) | payer MEDICAID ==
[~2024-02-26] VITALS: Ht 165.1 cm; Wt 70.0 kg
[~2024-02-26 11:40] MED LIST changes: -MEP5T GT; +PHYT5TAB9 GT
[2024-02-26 13:09] LABS: BASOPHILS % (AUTO) 0.6 % (0-1); EOSINOPHILS # (AUTO) 0.1 X10'3 (0-0.9); EOSINOPHILS % (AUTO) 1.6 % (0-6); HEMATOCRIT 47.8 % (42.0-52.0); HEMOGLOBIN 15.9 g/dl (14.0-17.9); LYMPHOCYTES # (AUTO) 2.3 X10'3 (1.1-4.8); LYMPHOCYTES % (AUTO) 26.4 % (21-51); MEAN CORPUSCULAR HEMOGLOBIN 31.7 PG (27.0-31.0); MEAN CORPUSCULAR HGB CONC 33.2 g/dL (33.0-36.5); MEAN CORPUSCULAR VOLUME 95.6 FL (78-98); MEAN PLATELET VOLUME 7.3 FL (7.4-10.4); MONOCYTES # (AUTO) 0.8 X10'3 (0-0.9); MONOCYTES % (AUTO) 8.7 % (2-12); NEUTROPHILS # (AUTO) 5.5 X10'3 (1.8-7.7); NEUTROPHILS % (AUTO) 62.7 % (42-75); PLATELET COUNT 348 X10'3 (140-440); RED CELL DISTRIBUTION WIDTH 13.6 % (11.5-14.5); WHITE BLOOD COUNT 8.8 X10'3 (4.5-11.0)
[2024-02-26 13:22] LABS: ALANINE AMINOTRANSFERASE 17 U/L (12-78); ALBUMIN 3.8 G/DL (3.4-5.0); ALBUMIN/GLOBULIN RATIO 0.8 (1.1-1.5); ALKALINE PHOSPHATASE 73 IU/L (46-116); ANION GAP 6 (8-16); ASPARTATE AMINO TRANSFERASE 8 U/L (10-37); BILIRUBIN,DIRECT 0.1 MG/DL (0-0.3); BILIRUBIN,TOTAL 0.3 MG/DL (0.1-1.0); BLOOD UREA NITROGEN 7 MG/DL (7-18); BUN/CREATININE RATIO 25.9 (10.0-20.0); CALCIUM 8.9 MG/DL (8.5-10.1); CHLORIDE 99 MMOL/L (99-107); CREATININE 0.27 MG/DL (0.60-1.10); GLUCOSE 86 MG/DL (70-104); POTASSIUM 4.2 MMOL/L (3.5-5.1); SODIUM 136 MMOL/L (135-145); TOTAL CARBON DIOXIDE 31.2 MMOL/L (24-32); TOTAL PROTEIN 8.5 G/DL (6.4-8.2); eCRCL 314 ML/MIN; eGFR > 90 ML/MIN
[2024-02-26] MEDS: CefTRIAXone 2gm/D5W 50ml BAG 50 ML IV ONE (13:54)
[2024-02-26] MEDS: normal saline 1000ml 1,000 ML IV ONE (13:54)
[2024-02-26 15:31] LABS: PRO BRAIN NATRIURETIC PEPTIDE < 30 PG/ML (0-125)
[2024-02-26 17:01] LABS: BILIRUBIN,URINE NEGATIVE (Neg); CLARITY,URINE SLIGHTLY CLOUDY (Clear); COLOR,URINE YELLOW (Yellow); GLUCOSE, URINE NEGATIVE (Neg); KETONES,URINE NEGATIVE (Neg); LEUKOCYTE ESTERASE ,URINE NEGATIVE (Neg); NITRITES, URINE NEGATIVE (Neg); OCCULT BLOOD,URINE NEGATIVE (Neg); PH,URINE 6.5 (4.8-8.0); PROTEIN,URINE NEGATIVE (Neg); UROBILINOGEN,URINE 0.2 E.U/dL (0.2-1.0)
[2024-02-26 17:03] LABS: UA COLLECTION TYPE STRAIGHT CATH
[2024-02-26 17:09] LABS: SQUAMOUS EPITHELIAL CELL,UR NONE SEEN /LPF (FEW)
[2024-02-26 17:10] LABS: BACTERIA,URINE FEW /HPF (Neg); WBC CLUMPS,URINE MODERATE /HPF (NEGATIVE)
[2024-02-26] MEDS ORDERED: acetaminophen 325mg tablet GT PRN (18:15)
[2024-02-26] MEDS ORDERED: magnesium hydroxide 30ml (MOM) UD suspension GT PRN (18:15)
[2024-02-26] MEDS ORDERED: potassium Cl 20 mEq SR tablet PEG PRN ×2 (18:15)
[2024-02-26] MEDS ORDERED: mag hydrox/Alum hydrox/simeth 30ml oral suspension GT PRN (18:15)
[2024-02-26] MEDS ORDERED: albuterol 2.5 MG/3 ML nebule NEB PRN (18:15)
[2024-02-26] MEDS ORDERED: magnesium 4gm in 100ml NS 100 ML IV PRN (18:15)
[2024-02-26] MEDS ORDERED: ipratropium/albuterol 3ml nebule NEB PRN (18:15)
[2024-02-26] MEDS ORDERED: ondansetron/PF 4mg/2ml inj IV PRN (18:15)
[2024-02-26] MEDS ORDERED: magnesium 2GM in 50ml NS 50 ML IV PRN (18:15)
[2024-02-26] MEDS: K and/or MAG REPLACEMENT MC SCH (20:00)
[2024-02-26 20:15] VITALS: PULSE 85; RESP 18; O2SAT 93
[2024-02-26 23:45] VITALS: BP 141/82; PULSE 78; RESP 16; RESP 18; TEMP 98.2; O2SAT 97
[2024-02-27] VITALS (7 sets, daily range): BP systolic 110–168; BP diastolic 76–98; PULSE 62–88; RESP 13–20; TEMP 97.6–97.9; O2SAT 95–98
[2024-02-27] MEDS: heparin, porcine 5000 units/ml vial SQ SCH
[2024-02-27 06:54] LABS: BASOPHILS % (AUTO) 0.4 % (0-1); EOSINOPHILS # (AUTO) 0.1 X10'3 (0-0.9); EOSINOPHILS % (AUTO) 1.3 % (0-6); HEMOGLOBIN 15.7 g/dl (14.0-17.9); LYMPHOCYTES # (AUTO) 1.8 X10'3 (1.1-4.8); LYMPHOCYTES % (AUTO) 20.8 % (21-51); MEAN CORPUSCULAR HEMOGLOBIN 32.5 PG (27.0-31.0); MEAN CORPUSCULAR HGB CONC 34.1 g/dL (33.0-36.5); MEAN CORPUSCULAR VOLUME 95.3 FL (78-98); MEAN PLATELET VOLUME 7.6 FL (7.4-10.4); MONOCYTES # (AUTO) 0.7 X10'3 (0-0.9); MONOCYTES % (AUTO) 8.3 % (2-12); NEUTROPHILS # (AUTO) 5.8 X10'3 (1.8-7.7); NEUTROPHILS % (AUTO) 69.2 % (42-75); PLATELET COUNT 325 X10'3 (140-440); RED BLOOD COUNT 4.83 X10'6 (4.70-6.10); WHITE BLOOD COUNT 8.4 X10'3 (4.5-11.0)
[2024-02-27 07:02] LABS: ALANINE AMINOTRANSFERASE 23 U/L (12-78); ALBUMIN 3.8 G/DL (3.4-5.0); ALBUMIN/GLOBULIN RATIO 0.9 (1.1-1.5); ALKALINE PHOSPHATASE 86 IU/L (46-116); ANION GAP 5 (8-16); ASPARTATE AMINO TRANSFERASE 20 U/L (10-37); BILIRUBIN,TOTAL 0.4 MG/DL (0.1-1.0); BLOOD UREA NITROGEN 7 MG/DL (7-18); BUN/CREATININE RATIO 21.2 (10.0-20.0); CHLORIDE 100 MMOL/L (99-107); CREATININE 0.33 MG/DL (0.60-1.10); GLUCOSE 97 MG/DL (70-104); MAGNESIUM 2.1 MG/DL (1.5-2.4); POTASSIUM 3.9 MMOL/L (3.5-5.1); SODIUM 137 MMOL/L (135-145); TOTAL CARBON DIOXIDE 32.1 MMOL/L (24-32); TOTAL PROTEIN 8.2 G/DL (6.4-8.2); eCRCL 257 ML/MIN; eGFR > 90 ML/MIN
[2024-02-27] MEDS ORDERED: DIAZEPAM NS PRN (07:55)
[2024-02-27] MEDS ORDERED: bisacodyl 10mg suppository rectal RC PRN (07:55)
[2024-02-27] MEDS ORDERED: lactose-reduced food/fiber (Jevity 1.2 Cal) 237ml BOTTLE OGT SCH (08:00)
[2024-02-27] MEDS ORDERED: LACOSAMIDE (Vimpat) 100mg/10ml (10 MG/ML) oral UD solution GT SCH (08:00)
[2024-02-27] MEDS ORDERED: GABAPENTIN 300 MG/6 ML oral SOLUTION cup OGT SCH (08:00)
[2024-02-27] MEDS ORDERED: ASCORBATE CA PEG SCH (08:00)
[2024-02-27] MEDS ORDERED: VIT C PEG SCH (08:00)
[2024-02-27] MEDS ORDERED: [UNRECOGNIZED DRUG - OTHER] PO PRN (08:00)
[2024-02-27] MEDS ORDERED: non-formulary drug (Ascorbic Acid (Vitamin C) 1 TAB) GT SCH (08:00)
[2024-02-27] MEDS ORDERED: ASCORB SOD PEG SCH (08:00)
[2024-02-27] MEDS ORDERED: [UNRECOGNIZED DRUG - OTHER] PEG SCH (08:00)
[2024-02-27] MEDS ORDERED: POTASSIUM CHLORIDE 20 MEQ/15 ML oral solution GT SCH (08:00)
[2024-02-27] MEDS ORDERED: valproic acid 250mg/5ml UD oral syrup OGT SCH (08:00)
[2024-02-27] MEDS ORDERED: gabapentin 300mg capsule OGT SCH (08:30)
[2024-02-27] MEDS: CefTRIAXone/D5W-Rocephin 1gm 50 ML IV SCH (09:04)
[2024-02-27] MEDS: furosemide 20 MG/2 ML vial IV SCH (09:04)
[2024-02-27] MEDS ORDERED: POTASSIUM CHLORIDE OGT SCH (09:37)
[2024-02-27] MEDS: sennosides 8.6mg tablet GT SCH (11:09)
[2024-02-27] MEDS: levetiracetam 100mg/ml oral solution 5ml UD cup GT SCH (11:09)
[2024-02-27] MEDS: baclofen 10mg tablet OGT SCH (11:10)
[2024-02-27] MEDS: carbamide peroxide 15ml bottle RIGHT EAR SCH (11:10)
[2024-02-27] MEDS ORDERED: acetaminophen 325mg tablet PEG PRN (15:15)
[2024-02-27] MEDS ORDERED: magnesium hydroxide 30ml (MOM) UD suspension PEG PRN (15:31)
[2024-02-27] MEDS ORDERED: mag hydrox/Alum hydrox/simeth 30ml oral suspension PEG PRN (15:31)
[2024-02-27] MEDS: valproic acid 250mg/5ml UD oral syrup PEG SCH (19:52)
[2024-02-27] MEDS: levetiracetam 100mg/ml oral solution 5ml UD cup PEG SCH (19:53)
[2024-02-27] MEDS: LACOSAMIDE (Vimpat) 100mg/10ml (10 MG/ML) oral UD solution PEG SCH (19:53)
[2024-02-27] MEDS: baclofen 10mg tablet PEG SCH (19:53)
[2024-02-27] MEDS: gabapentin 300mg capsule PEG SCH (20:05)
[2024-02-28] VITALS (8 sets, daily range): BP systolic 92–128; BP diastolic 64–80; PULSE 61–124; RESP 14–20; TEMP 97.6–99.5; O2SAT 94–99
[2024-02-28 07:51] LABS: BASOPHILS % (AUTO) 0.7 % (0-1); EOSINOPHILS # (AUTO) 0.1 X10'3 (0-0.9); EOSINOPHILS % (AUTO) 2.1 % (0-6); HEMATOCRIT 44.5 % (42.0-52.0); HEMOGLOBIN 15.2 g/dl (14.0-17.9); LYMPHOCYTES # (AUTO) 1.8 X10'3 (1.1-4.8); LYMPHOCYTES % (AUTO) 25.6 % (21-51); MEAN CORPUSCULAR HEMOGLOBIN 32.6 PG (27.0-31.0); MEAN CORPUSCULAR HGB CONC 34.1 g/dL (33.0-36.5); MEAN CORPUSCULAR VOLUME 95.5 FL (78-98); MEAN PLATELET VOLUME 7.8 FL (7.4-10.4); MONOCYTES # (AUTO) 0.7 X10'3 (0-0.9); MONOCYTES % (AUTO) 10.2 % (2-12); NEUTROPHILS # (AUTO) 4.2 X10'3 (1.8-7.7); NEUTROPHILS % (AUTO) 61.4 % (42-75); PLATELET COUNT 337 X10'3 (140-440); RED BLOOD COUNT 4.66 X10'6 (4.70-6.10); RED CELL DISTRIBUTION WIDTH 13.7 % (11.5-14.5); WHITE BLOOD COUNT 6.9 X10'3 (4.5-11.0)
[2024-02-28] MEDS: POTASSIUM CHLORIDE PEG SCH (08:00)
[2024-02-28 08:36] LABS: ALANINE AMINOTRANSFERASE 29 U/L (12-78); ALBUMIN 3.5 G/DL (3.4-5.0); ALBUMIN/GLOBULIN RATIO 0.8 (1.1-1.5); ALKALINE PHOSPHATASE 79 IU/L (46-116); ANION GAP 6 (8-16); ASPARTATE AMINO TRANSFERASE 22 U/L (10-37); BILIRUBIN,TOTAL 0.3 MG/DL (0.1-1.0); BLOOD UREA NITROGEN 11 MG/DL (7-18); BUN/CREATININE RATIO 31.4 (10.0-20.0); CALCIUM 8.8 MG/DL (8.5-10.1); CHLORIDE 98 MMOL/L (99-107); CREATININE 0.35 MG/DL (0.60-1.10); GLUCOSE 100 MG/DL (70-104); MAGNESIUM 2.3 MG/DL (1.5-2.4); POTASSIUM 3.9 MMOL/L (3.5-5.1); SODIUM 137 MMOL/L (135-145); TOTAL CARBON DIOXIDE 32.6 MMOL/L (24-32); eCRCL 242 ML/MIN; eGFR > 90 ML/MIN
[2024-02-28] MEDS: sennosides 8.6mg tablet PEG SCH (09:00)
[2024-02-29] VITALS (8 sets, daily range): BP systolic 96–118; BP diastolic 57–72; PULSE 81–127; RESP 15–22; TEMP 97.5–101; O2SAT 90–96
[2024-02-29] MEDS: acetaminophen 325mg/10.15ml oral unit dose solution PEG PRN (05:18)
[2024-02-29 06:33] LABS: BASOPHILS % (AUTO) 0.4 % (0-1); EOSINOPHILS # (AUTO) 0.1 X10'3 (0-0.9); EOSINOPHILS % (AUTO) 0.8 % (0-6); HEMATOCRIT 46.1 % (42.0-52.0); HEMOGLOBIN 15.3 g/dl (14.0-17.9); LYMPHOCYTES # (AUTO) 1.2 X10'3 (1.1-4.8); LYMPHOCYTES % (AUTO) 13.3 % (21-51); MEAN CORPUSCULAR HEMOGLOBIN 31.8 PG (27.0-31.0); MEAN CORPUSCULAR HGB CONC 33.2 g/dL (33.0-36.5); MEAN CORPUSCULAR VOLUME 95.8 FL (78-98); MONOCYTES # (AUTO) 1.2 X10'3 (0-0.9); NEUTROPHILS # (AUTO) 6.3 X10'3 (1.8-7.7); NEUTROPHILS % (AUTO) 71.5 % (42-75); PLATELET COUNT 330 X10'3 (140-440); RED BLOOD COUNT 4.81 X10'6 (4.70-6.10); RED CELL DISTRIBUTION WIDTH 13.9 % (11.5-14.5); WHITE BLOOD COUNT 8.9 X10'3 (4.5-11.0)
[2024-02-29 07:14] LABS: ALANINE AMINOTRANSFERASE 32 U/L (12-78); ALBUMIN 3.5 G/DL (3.4-5.0); ALBUMIN/GLOBULIN RATIO 0.8 (1.1-1.5); ALKALINE PHOSPHATASE 77 IU/L (46-116); ANION GAP 7 (8-16); ASPARTATE AMINO TRANSFERASE 33 U/L (10-37); BILIRUBIN,TOTAL 0.3 MG/DL (0.1-1.0); BLOOD UREA NITROGEN 14 MG/DL (7-18); BUN/CREATININE RATIO 41.2 (10.0-20.0); CALCIUM 8.8 MG/DL (8.5-10.1); CHLORIDE 98 MMOL/L (99-107); CREATININE 0.34 MG/DL (0.60-1.10); GLUCOSE 109 MG/DL (70-104); MAGNESIUM 2.4 MG/DL (1.5-2.4); POTASSIUM 4.1 MMOL/L (3.5-5.1); PREALBUMIN 21.9 MG/DL (19-36); SODIUM 137 MMOL/L (135-145); TOTAL CARBON DIOXIDE 31.7 MMOL/L (24-32); TOTAL PROTEIN 8.1 G/DL (6.4-8.2); eCRCL 259 ML/MIN; eGFR > 90 ML/MIN
[2024-02-29] MEDS: levoFLOXACIN-Levaquin 500mg/D5 100 ML IV SCH (09:40)
[2024-02-29] MEDS: metroNIDAZOLE-Flagyl 500mg/NS 100 ML IV SCH (09:40)
[2024-02-29] MEDS ORDERED: iohexol 300mg/ml 100ml inj. ONE (10:10)
[2024-03-01 06:00] VITALS: BP 117/75; PULSE 60; RESP 16; TEMP 97.2; O2SAT 96
[2024-03-01 08:00] VITALS: RESP 16; O2SAT 96
[2024-03-01 08:51] LABS: BASOPHILS % (AUTO) 0.7 % (0-1); EOSINOPHILS # (AUTO) 0.2 X10'3 (0-0.9); EOSINOPHILS % (AUTO) 5.3 % (0-6); HEMATOCRIT 41.9 % (42.0-52.0); LYMPHOCYTES # (AUTO) 1.8 X10'3 (1.1-4.8); LYMPHOCYTES % (AUTO) 39.1 % (21-51); MEAN CORPUSCULAR HEMOGLOBIN 32.2 PG (27.0-31.0); MEAN CORPUSCULAR HGB CONC 33.5 g/dL (33.0-36.5); MEAN CORPUSCULAR VOLUME 96.3 FL (78-98); MEAN PLATELET VOLUME 7.9 FL (7.4-10.4); MONOCYTES # (AUTO) 0.7 X10'3 (0-0.9); MONOCYTES % (AUTO) 14.7 % (2-12); NEUTROPHILS # (AUTO) 1.8 X10'3 (1.8-7.7); NEUTROPHILS % (AUTO) 40.2 % (42-75); PLATELET COUNT 278 X10'3 (140-440); RED BLOOD COUNT 4.35 X10'6 (4.70-6.10); RED CELL DISTRIBUTION WIDTH 13.6 % (11.5-14.5); WHITE BLOOD COUNT 4.5 X10'3 (4.5-11.0)
[2024-03-01 09:04] LABS: ALANINE AMINOTRANSFERASE 26 U/L (12-78); ALBUMIN 3.2 G/DL (3.4-5.0); ALBUMIN/GLOBULIN RATIO 0.8 (1.1-1.5); ALKALINE PHOSPHATASE 67 IU/L (46-116); ANION GAP 2 (8-16); ASPARTATE AMINO TRANSFERASE 17 U/L (10-37); BILIRUBIN,TOTAL 0.3 MG/DL (0.1-1.0); BLOOD UREA NITROGEN 11 MG/DL (7-18); BUN/CREATININE RATIO 31.4 (10.0-20.0); CALCIUM 8.8 MG/DL (8.5-10.1); CHLORIDE 98 MMOL/L (99-107); CREATININE 0.35 MG/DL (0.60-1.10); GLUCOSE 115 MG/DL (70-104); MAGNESIUM 2.4 MG/DL (1.5-2.4); SODIUM 137 MMOL/L (135-145); TOTAL CARBON DIOXIDE 36.8 MMOL/L (24-32); TOTAL PROTEIN 7.3 G/DL (6.4-8.2); eCRCL 251 ML/MIN; eGFR > 90 ML/MIN
[2024-03-01] MEDS ORDERED: LEVO-65 GT (12:52)
[2024-03-01] MEDS ORDERED: METR-159 GT (12:52)
[2024-03-01 14:05] VITALS: PULSE 64; RESP 14; O2SAT 96
== END 2024-03-01 14:30 | disposition home or self-care (01) | DRG 139 ==
LOC: ER 11:40 → ED HOLD 18:20 → ORTHO 4S 23:59
PROVIDERS: ADMIT Family Medicine; ATTEND Family Medicine
PROC: BW211ZZ Computerized Tomography (CT Scan) of Abdomen and Pelvis using Low Osmolar Contrast (ICD-10-PCS; principal; 2024-02-29)
DX: J15.9 Unspecified bacterial pneumonia (principal); J96.00 Acute respiratory failure, unspecified whether with hypoxia or hypercapnia; G93.41 Metabolic encephalopathy; N39.0 Urinary tract infection, site not specified; K59.00 Constipation, unspecified; K21.9 Gastro-esophageal reflux disease without esophagitis; A41.9 Sepsis, unspecified organism; Z96.89 Presence of other specified functional implants; I10 Essential (primary) hypertension; M41.9 Scoliosis, unspecified; F43.9 Reaction to severe stress, unspecified; G80.0 Spastic quadriplegic cerebral palsy; G40.909 Epilepsy, unspecified, not intractable, without status epilepticus; Z93.1 Gastrostomy status; Z88.2 Allergy status to sulfonamides; Z79.899 Other long term (current) drug therapy; Z87.440 Personal history of urinary (tract) infections; Z88.1 Allergy status to other antibiotic agents; Z88.8 Allergy status to other drugs, medicaments and biological substances
CPT/HCPCS: 36415; 71045; 74176; 74177; 80048; 80053; 80076; 81001; 82948; 83605; 83735; 83880; 84134; 84145; 85025; 87040; 87081; 87088; 93005; 94760; 99285; A6209; A6250; A6253; A6258; A6449; A6590; C1758; G0378; J0696; J1644; J1940; J1953; J1956; J3490; J7030; Q9967

== ENCOUNTER 2024-06-06 04:13 | Emergency (ER) | payer MEDICAID ==
[~2024-06-06] VITALS: Ht 170.2 cm; Wt 50.7 kg
[~2024-06-06 04:13] MED LIST changes: +LEVO-65 GT; +METR-159 GT
[2024-06-06 04:51] VITALS: BP 138/88; PULSE 92; RESP 17; TEMP 97.4; O2SAT 98
== END 2024-06-06 06:59 | disposition home or self-care (01) ==
LOC: ER 04:14
DX: K94.29 Other complications of gastrostomy (principal); E78.00 Pure hypercholesterolemia, unspecified; K21.9 Gastro-esophageal reflux disease without esophagitis; Z88.1 Allergy status to other antibiotic agents; Z88.2 Allergy status to sulfonamides; Z88.8 Allergy status to other drugs, medicaments and biological substances; Z78.1 Physical restraint status; Z79.899 Other long term (current) drug therapy; Z79.1 Long term (current) use of non-steroidal anti-inflammatories (NSAID)
CPT/HCPCS: 43762; 99284

== ENCOUNTER 2025-02-26 08:41 | Emergency (ER) | payer MEDICAID ==
[~2025-02-26] VITALS: Ht 170.2 cm; Wt 74.5 kg
[~2025-02-26 08:41] MED LIST changes: -SENN-263 GT; +SENN-360 GT
[2025-02-26 08:48] VITALS: TEMP 97.6
--- NOTE | 2025-02-26 09:22 | Physician Documentation ---
History of Present Illness ~ Chief Complaint: Eye Pain Stated Complaint: L EYE INFECTION Time Seen by MD: 09:17 Primary Medical Doctor: Dr. Gonzalez HPI 40-YEAR-OLD MALE WITH A HISTORY OF CEREBRAL PALSY PRESENTS WITH ONGOING COMPLAINTS IN LEFT EYE PAIN WHICH IS ITCHY AND PAINFUL. HE WAS PLACED ON POLYMYXIN BUT CONTINUES TO RUB HIS EYE. Day of Onset: February 26, 2025 Medication Reconciliation Allergies: Coded Allergies: amoxicillin (Verified Allergy, Severe, THROAT CLOSES UP, 02/26/25) Sulfa (Sulfonamide Antibiotics) (Verified Allergy, Unknown, 02/26/25) phenobarbital (Verified Allergy, Unknown, 02/26/25) talc (Verified Allergy, Unknown, 02/26/25) vaccine adjuvant system, AS01B liposomal (Verified Allergy, Unknown, 02/26/25) Scheduled Acetaminophen (Tylenol), 650 MG PO Q6H PRN PAIN, (Reported) Ascorbic Acid (Vitamin C), 1 TAB GT DAILY, (Reported) Azithromycin (Azasite), 1 DROP LEFTEYE BID Baclofen (Baclofen), 1 TAB OGT BID, (Reported) Carbamide Peroxide (Debrox), 5 DROP RIGHT EAR Q12H, (Reported) Cholecalciferol (Vitamin D3) (Vitamin D-400), 1 TAB OGT DAILY, (Reported) Docusate Sodium (Docusate Sodium), 1 CAP OGT Q12H, (Reported) Gabapentin (Gabapentin), 18 ML OGT TID, (Reported) Lacosamide (Vimpat), 1 TAB GT BID, (Reported) Lactobacillus Acidophilus (Probiotic), 1 CAP PO Q8H, (Reported) Lactose-Reduced Food/Fiber (Jevity 1.5 Chapo Liquid), 365 ML OGT TID, (Reported) Lansoprazole (Lansoprazole), 1 CAP PO DAILY, (Reported) Levetiracetam (Keppra), 15 ML GT BID, (Reported) Levofloxacin (Levofloxacin), 500 MG GT DAILY Metronidazole* (Flagyl*), 1 TAB GT Q8H [id number]/Sod Sul/NaCl/KCl/Asb/C (Plenvu Powder Packets), 1 PKT PO Q12H, (Reported) Phytonadione (MEPHYTON tablet), 5 MG GT QMONDAY, (Reported) Potassium Chloride (Potassium Chloride), 8 MEQ GT DAILY, (Reported) Prednisolone Acetate/Pf (Prednisolone Acet 1% Eye Drop), 1 DROP LEFTEYE Q6H Sennosides (Senna), 1 TAB GT DAILY, (Reported) Valproic Acid (As Sodium Salt) (Valproic Acid), 750 MG OGT BID, (Reported) Vit C/Ascorbate Ca/Ascorb Sod (Vitamin C 500 Mg/15 Ml Liquid), 500 MG PEG DAILY, (Reported) Scheduled PRN Bisacodyl (Bisacodyl), 1 SUPP RC DAILY PRN for constipation, (Reported) Diazepam (Valtoco), 2 SPRAY NS ONCE PRN for BREATHROUGH SEIZURE, (Reported) Guaifenesin/Codeine Phosphate (Codeine-Guaifen 10-100 mg/5 ml), 10 ML PO Q6H PRN for cough and congestion, (Reported) Ibuprofen* (Motrin*), 1 TAB PO Q6H PRN for pain, (Reported) Miscellaneous Medications Glycerin (Pedia-Lax), (Reported) Nutritional Supplement (Peptamen 1.5), (Reported) Past Medical History 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 Alcohol Use: None Drug Use: none Lives In: Home Review of Systems All Other Systems at this time: Reviewed and Negative ROS As stated above in the HPI, otherwise all systems are reviewed and negative. Physical Exam Vital Signs: Temperature: 97.6, Source: Temporal, Heart Rate: 87, Respiratory Rate: 16, BP: 116/77, Pulse Oximetry: 99, Weight: 74.550 Physical Exam General: Alert, no apparent distress. HEENT: PERRL, EOMI, no injection, moist mucous membranes. REDDENED CONJUNCTIVA Neck: Full range of motion. Psychiatric: Normal mood and affect. Skin: Normal color, warm and dry. No edema, no ecchymosis. Progress Results/Orders Results/Orders Completed Orders - MICHAEL ROSENTHAL NP Proparacaine Ophth Solution (Alcaine Oph (02/26/25 09:45) Vital Signs 02/26/25 08:48 Temp 97.6 Pulse 87 Resp 16 B/P (MAP) 116/77 Pulse Ox 99 Medical Decision Making Findings Treated patient for bacterial conjunctivitis and inflammation. Patient tolerated the receiving proparacaine well appearing going to discharge for outpatient evaluation Departure Disposition: 01 HOME / SELF CARE / HOMELESS Impression: Primary Impression: Cerebral palsy Additional Impression: Bacterial conjunctivitis Condition: Stable Discharge Instructions: Bacterial Conjunctivitis, Adult, [id number] Referrals: NO PRIMARY CARE PROVIDER (PCP) Prescriptions Prednisolone Acetate/Pf (Prednisolone Acet 1% Eye Drop) 1 % Drops.susp 1 DROP LEFTEYE Q6H for 30 Days, #5 ML 0 Refills Prov: MICHAEL ROSENTHAL NP 02/26/25 Azithromycin (Azasite) 1 % Drops 1 DROP LEFTEYE BID for 10 Days, #5 ML 0 Refills Prov: MICHAEL ROSENTHAL NP 02/26/25 Signature Scribe Signature: r Attestation: The note accurately reflects work and decisions made by me.Michael Santamaria NP 02/26/25 09:19 MICHAEL ROSENTHAL NP February 26, 2025 09:22
[2025-02-26] MEDS ORDERED: proparacaine 0.5% ophthalmic drops 15ml EACHEYE ONE (09:45)
[2025-02-26] MEDS ORDERED: PRED5DRO23 LEFTEYE (09:49)
[2025-02-26] MEDS ORDERED: AZIT2.5D5 LEFTEYE (09:49)
[2025-02-26 10:14] VITALS: BP 116/74; PULSE 74; RESP 15; O2SAT 99
== END 2025-02-26 10:17 | disposition home or self-care (01) ==
LOC: ER 08:42
DX: H10.89 Other conjunctivitis (principal); G80.9 Cerebral palsy, unspecified; K21.9 Gastro-esophageal reflux disease without esophagitis; Z88.1 Allergy status to other antibiotic agents; Z88.2 Allergy status to sulfonamides; Z95.0 Presence of cardiac pacemaker; Z88.7 Allergy status to serum and vaccine; Z79.899 Other long term (current) drug therapy
CPT/HCPCS: 99284

== ENCOUNTER 2025-05-25 10:49 | Emergency (ER) | payer MEDICAID ==
[~2025-05-25] VITALS: Ht 162.6 cm; Wt 70.5 kg
[~2025-05-25 10:49] MED LIST changes: +AZIT2.5D5 LEFTEYE; +PRED5DRO23 LEFTEYE
[2025-05-25 11:10] VITALS: BP 117/72; PULSE 80; RESP 16; TEMP 98.5; O2SAT 96
--- NOTE | 2025-05-25 11:34 | Physician Documentation ---
History of Present Illness ~ Chief Complaint: Finger pain Stated Complaint: HAND PAIN Time Seen by MD: 11:25 OK to notify your PCP?: Yes Primary Medical Doctor: Dr. Gonzalez Source: patient Mode of Arrival: POV Exam Limitations: no limitations HPI 37 year old male presents with swelling and bruising to left ring finger and left hand. This was not there yesterday per the caregiver he does live in a fpc for severe disabilities. He is completely wheelchair-bound. His caregiver gave him some Tylenol prior to arrival. He is nonverbal and unable to communicate pain. Tetanus within 5 years: No Medication Reconciliation Allergies: Coded Allergies: amoxicillin (Verified Allergy, Severe, THROAT CLOSES UP, 02/26/25) Sulfa (Sulfonamide Antibiotics) (Verified Allergy, Unknown, 02/26/25) phenobarbital (Verified Allergy, Unknown, 02/26/25) talc (Verified Allergy, Unknown, 02/26/25) vaccine adjuvant system, AS01B liposomal (Verified Allergy, Unknown, 02/26/25) Scheduled Acetaminophen (Tylenol), 650 MG PO Q6H PRN PAIN, (Reported) Ascorbic Acid (Vitamin C), 1 TAB GT DAILY, (Reported) Azithromycin (Azasite), 1 DROP LEFTEYE BID Baclofen (Baclofen), 1 TAB OGT BID, (Reported) Carbamide Peroxide (Debrox), 5 DROP RIGHT EAR Q12H, (Reported) Cholecalciferol (Vitamin D3) (Vitamin D-400), 1 TAB OGT DAILY, (Reported) Docusate Sodium (Docusate Sodium), 1 CAP OGT Q12H, (Reported) Gabapentin (Gabapentin), 18 ML OGT TID, (Reported) Lacosamide (Vimpat), 1 TAB GT BID, (Reported) Lactobacillus Acidophilus (Probiotic), 1 CAP PO Q8H, (Reported) Lactose-Reduced Food/Fiber (Jevity 1.5 Chapo Liquid), 365 ML OGT TID, (Reported) Lansoprazole (Lansoprazole), 1 CAP PO DAILY, (Reported) Levetiracetam (Keppra), 15 ML GT BID, (Reported) Levofloxacin (Levofloxacin), 500 MG GT DAILY Metronidazole* (Flagyl*), 1 TAB GT Q8H [id number]/Sod Sul/NaCl/KCl/Asb/C (Plenvu Powder Packets), 1 PKT PO Q12H, (Reported) Phytonadione (MEPHYTON tablet), 5 MG GT QMONDAY, (Reported) Potassium Chloride (Potassium Chloride), 8 MEQ GT DAILY, (Reported) Prednisolone Acetate/Pf (Prednisolone Acet 1% Eye Drop), 1 DROP LEFTEYE Q6H Sennosides (Senna), 1 TAB GT DAILY, (Reported) Valproic Acid (As Sodium Salt) (Valproic Acid), 750 MG OGT BID, (Reported) Vit C/Ascorbate Ca/Ascorb Sod (Vitamin C 500 Mg/15 Ml Liquid), 500 MG PEG DAILY, (Reported) Scheduled PRN Bisacodyl (Bisacodyl), 1 SUPP RC DAILY PRN for constipation, (Reported) Diazepam (Valtoco), 2 SPRAY NS ONCE PRN for BREATHROUGH SEIZURE, (Reported) Guaifenesin/Codeine Phosphate (Codeine-Guaifen 10-100 mg/5 ml), 10 ML PO Q6H PRN for cough and congestion, (Reported) Ibuprofen* (Motrin*), 1 TAB PO Q6H PRN for pain, (Reported) Miscellaneous Medications Glycerin (Pedia-Lax), (Reported) Nutritional Supplement (Peptamen 1.5), (Reported) Past Medical History 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 Alcohol Use: None Drug Use: none Lives In: Home Review of Systems All Other Systems at this time: Reviewed and Negative Physical Exam Vital Signs: RN Vital Signs have been reviewed: Yes, Temperature: 98.5, Source: Temporal, Heart Rate: 80, Respiratory Rate: 16, BP: 117/72, Pulse Oximetry: 96, Weight: 70.450 Oxygen Flow Rate: 0 Pulse Oximetry Reflects: adequate oxygenation Physical Exam General: Alert, no distress, in wheelchair, severely disabled HEENT: No injection, moist mucous membranes. Neck: Full range of motion. Respiratory: No respiratory distress, equal chest rise and fall. Chest: No accessory muscle use. Cardiovascular: Regular rate and rhythm. Gastrointestinal: Nondistended. Extremities: Bilateral hand and foot contractures. Bruising and slight edema to left ring finger and pinky finger. Bruising to palmar side of hand. No apparent tenderness to palpation. Neurologic: Appropriate per caregiver. Psychiatric: Normal affect. Skin: Normal color, warm and dry. Progress Results/Orders Reviewed/noted all lab results: Yes Results/Orders Vital Signs 05/25/25 11:10 Temp 98.5 Pulse 80 Resp 16 B/P (MAP) 117/72 Pulse Ox 96 O2 Flow Rate 0 EKG/XRAY/CT/US/VASC/MRI Bone/Soft Tissue X-Ray (Ext.) : Additional Comment Left hand x-ray as interpreted by me; no joint effusion, no acute fracture, no soft tissue swelling, no dislocation, or foreign body. 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 On physical exam there is some bruising and some slight edema noted, he does not appear to be painful. He is nonverbal and severely disabled. Caregiver gave some Tylenol. We did a x-rays which was suboptimal due to his permanent contractures of his hand however there was no obvious acute fracture noted. We discussed that whether this is a fracture or not due to his contractures, we would not be able to properly splint his finger. We discussed that bones can take 6-8 weeks to heal and that sometimes on initial x-ray a fractures not noted but on repeat x- ray in 7-10 days it can be seen. Caregiver agrees to this plan as well as the follow up instructions that were given. Finger Diff Dx:Considerations: Include: Cellulitis, Dislocation, Fracture, Hematoma, Neurovascular injury Departure Disposition: 01 HOME / SELF CARE / HOMELESS Impression: Primary Impression: Finger pain, left Condition: Stable Discharge Instructions: Sprains Additional Instructions: As discussed the x-ray does not show an acute fracture but the imaging was suboptimal. Please rest, ice, elevate finger and use Tylenol and/or ibuprofen for pain relief. This continues, he may benefit from a repeat x-ray in 7-10 days. Follow up with the primary care provider and return back here for any new or worsening symptoms. Referrals: NO PRIMARY CARE PROVIDER (PCP) Education Educated: Patient, Other (Caregiver) Educated regarding: diagnosis, treatment, prognosis, need for follow up Additional Comment Medical Screen Exam This patient recieved a medical screening examination. After reviewing the individual's medical complaints with presenting symptoms and performing an appr opriate physical examination, it was determined that no immediate life- threatening emergency medical condition is present. This individual is also not a women having contractions. Signature Scribe Signature: . Attestation: Scribed for Radhika Sharifp by Radhika Santamaria NP . 05/25/25 12:56 Parts of this note were created using [employer] voice recognition software program. While efforts were made to correct any mistakes made by this voice recognition software program, nonsensical phrases may remain in this note. In addition, there may be errors and syntax, grammar, content and spelling. RADHIKA SHARIFP May 25, 2025 11:34
--- NOTE | 2025-05-25 12:33 | RADIOLOGY REPORT ---
DI HAND, COMPLETE (3VW MIN), INDICATION: HAND PAIN TECHNICAL DATA: Frontal, oblique and lateral views were obtained of the right hand. COMPARISON: None FINDINGS: No fracture is identified. Joint spaces are overall maintained. Soft tissues are within normal limi ts. IMPRESSION: No acute fracture or dislocation of the right hand. Suboptimal evaluation secondary to contracted paola earance of the hand and wrist.
== END 2025-05-25 12:56 | disposition home or self-care (01) ==
LOC: ER 10:50
DX: S60.042A Contusion of left ring finger without damage to nail, initial encounter (principal); Z88.0 Allergy status to penicillin; Z88.2 Allergy status to sulfonamides; Z88.8 Allergy status to other drugs, medicaments and biological substances; Z95.0 Presence of cardiac pacemaker; X58.XXXA Exposure to other specified factors, initial encounter; Y93.89 Activity, other specified; Y92.89 Other specified places as the place of occurrence of the external cause; Y99.8 Other external cause status
CPT/HCPCS: 73130; 99283